=== PATIENT | female | born 1940 | race Caucasian/White ===

== ENCOUNTER 2018-05-07 11:24 | Emergency (ER) | payer MEDICARE, SELFPAY ==
[2018-05-07 11:34] VITALS: BP 222/70; PULSE 58; RESP 20; TEMP 37.1; O2SAT 100; BMI 24.7
[2018-05-07 12:00] VITALS: BP 214/67
--- NOTE | 2018-05-07 12:07 | ED_ITS ---
HPI - Back Pain/Injury <Darlene Mcghee PA-C - Last Filed: 05/07/18 15:07> General Chief Complaint: Back Pain/Injury Stated Complaint: 'KIDNEY INFECTION' Time Seen by Provider: 05/07/18 11:33 Source: patient Mode of arrival: ambulatory Limitations: no limitations History of Present Illness HPI Narrative: This 77-year-old female complains of possible kidney infection. She states that she had 1 2 years ago that did not show up on her original urinalysis but apparently showed up on CT scan. She states it felt very similar. She states that she ?wrenched? her back yesterday just reaching out for some and had some mild pain but nothing like this. She states that she awoke this morning with excruciating pain on her right side which she indicates is in the flank area. She states at times earlier it would radiate into the lower back and slightly down her legs. Now feels like it radiates across the back from the right at times. Does not radiate into the abdomen. She denies any exacerbating or alleviating features at all such as movement. She does not have any new weakness or paresthesia in the extremities. She states that she has a history of back problems and degenerative disease which has required epidural injections, but pain was not like this. She states that she has not had any urinary symptoms such as frequency, urgency, dysuria, or hematuria. She has not had any fever, chills, or sweats. She denies any abdominal pain. States that she had some nausea earlier and thought she might vomit but did not. She has denies nausea now but admits to not eating earlier secondary to this. She denies any new rashes. She denies any recent travel or known exposures. Blood pressure was noted to be high today and she states that she is supposed to be on blood pressure medication but not taking. Her home blood pressures are typically substantially lower, as low as 140 range systolic. She later reveals that she had a twisting fall onto her L. knee and rolled on the R. side of her back 2 days ago while trying to control her dog. She didn't think her back was hurt at the time, denies any other injury. She also remembers that 10 days ago she had a contusion on the left foot where it was bruised and swollen, and states that caused her to walk with an abnormal gait until better. She does think all of that did have stressed her back. Related Data Previous Rx's Medication Instructions Recorded cyclobenzaprine 10 mg PO Q8H PRN #10 tab 05/07/18 hydrocodone-acetaminophen [[place]] 1 tab PO Q4-6H PRN #7 tab 05/07/18 sulfamethoxazole-trimethoprim 1 tab PO Q12H #20 tab 05/07/18 [Bactrim DS] Allergies Allergy/AdvReac Type Severity Reaction Status Date / Time No Known Drug Allergies Allergy Verified 05/07/18 11:39 Review of Systems <Darlene Mcghee PA-C - Last Filed: 05/07/18 15:07> Review of Systems All systems reviewed & are unremarkable except as noted in HPI and below Exam <Darlene Mcghee PA-C - Last Filed: 05/07/18 15:07> Narrative Exam Narrative: GENERAL APPEARANCE: Patient appears uncomfortable, in NAD HEENT: PERRL, EOMI, no scleral icterus, normal oropharynx NECK: Supple LUNGS: Clear to auscultation bilaterally. HEART: Rate and rhythm regular, normal S1 and S2, no S3 or S4. ABDOMEN: Soft, mild generalized lower and midline tenderness without guarding or rebound. Not reproducible. +right CVAT. Abdomen is nondistended, bowel sounds present x 4 quadrants, no masses palpable, no hepatosplenomegaly. EXTREMITIES: No edema, no cyanosis MS: No point tenderness over the lumbosacral spine. She is tender over the right CVA and lumbar musculature. None on the left. Somewhat tender with move from supine to sit. Lower extremity strength 5/5 bilateral hip flexors, knee extensors, foot plantar flexion DERMATOLOGIC: No jaundice or exanthem. There are some small scabbed abrasions on the left knee NEUROLOGIC: Alert and oriented with normal speech and coordination, bilateral Achilles and patellar DTRs 2+ Initial Vital Signs Initial Vital Signs: Vital Signs Temperature 98.7 F 05/07/18 11:34 Pulse Rate 58 L 05/07/18 11:34 Respiratory Rate 20 05/07/18 11:34 Blood Pressure 222/70 H 05/07/18 11:34 Pulse Oximetry 100 05/07/18 11:34 <Huan Mcclendon DO - Last Filed: 05/07/18 15:25> Initial Vital Signs Initial Vital Signs: Vital Signs Temperature 98.7 F 05/07/18 11:34 Pulse Rate 58 L 05/07/18 11:34 Respiratory Rate 20 05/07/18 11:34 Blood Pressure 222/70 H 05/07/18 11:34 Pulse Oximetry 100 05/07/18 11:34 Course <Darlene Mcghee PA-C - Last Filed: 05/07/18 15:07> Hospital Course: Patient reported improvement in pain with medications. Discussed treatment of possible pyelo but also musculoskeletal component of her pain and she is agreeable as well as with close f/u and plan to return if any worsening symptoms Orders Ordered: ED Orders 05/07/18 12:12 Basic Metabolic Panel Stat Complete Blood Count AUTO DIFF Stat Lipase Stat 05/07/18 12:39 CT kidney ureter bladder (KUB) Stat Urinalysis and Microscopic Stat Urine Culture Stat Discontinued Medications Acetaminophen (Tylenol) 650 mg PO NOW ONE Stop: 05/07/18 12:14 Last Admin: 05/07/18 12:58 Dose: 650 mg Cyclobenzaprine HCl (Flexeril) 10 mg PO NOW ONE Stop: 05/07/18 13:33 Last Admin: 05/07/18 13:41 Dose: 10 mg Sodium Chloride (Normal Saline 0.9%) 1,000 mls @ 1,000 mls/hr IV BOLUS ONE Stop: 05/07/18 13:30 Last Infusion: 05/07/18 14:35 Dose: 1,000 mls/hr Admin: 05/07/18 13:01 Dose: 1,000 mls/hr Ibuprofen (Advil) 400 mg PO NOW ONE Stop: 05/07/18 12:14 Last Admin: 05/07/18 12:59 Dose: 400 mg Morphine Sulfate (Morphine Sulfate) 2 mg IV NOW ONE Stop: 05/07/18 12:21 Last Admin: 05/07/18 13:02 Dose: 2 mg Vital Signs - 8 hr 05/07/18 11:34 05/07/18 12:00 05/07/18 13:03 Temperature 98.7 F Pulse Rate 58 L 99 H Respiratory Rate 20 Blood Pressure 222/70 H Blood Pressure [Right Arm] 214/67 H 199/52 H Pulse Oximetry 100 92 05/07/18 14:01 05/07/18 14:40 Temperature Pulse Rate 72 67 Respiratory Rate 18 Blood Pressure 167/74 H Blood Pressure [Right Arm] 189/60 H Pulse Oximetry 99 <Huan Mcclendon DO - Last Filed: 05/07/18 15:25> Orders Ordered: ED Orders 05/07/18 12:12 Basic Metabolic Panel Stat Complete Blood Count AUTO DIFF Stat Lipase Stat 05/07/18 12:39 CT kidney ureter bladder (KUB) Stat Urinalysis and Microscopic Stat Urine Culture Stat Discontinued Medications Acetaminophen (Tylenol) 650 mg PO NOW ONE Stop: 05/07/18 12:14 Last Admin: 05/07/18 12:58 Dose: 650 mg Cyclobenzaprine HCl (Flexeril) 10 mg PO NOW ONE Stop: 05/07/18 13:33 Last Admin: 05/07/18 13:41 Dose: 10 mg Sodium Chloride (Normal Saline 0.9%) 1,000 mls @ 1,000 mls/hr IV BOLUS ONE Stop: 05/07/18 13:30 Last Infusion: 05/07/18 14:35 Dose: 1,000 mls/hr Admin: 05/07/18 13:01 Dose: 1,000 mls/hr Ibuprofen (Advil) 400 mg PO NOW ONE Stop: 05/07/18 12:14 Last Admin: 05/07/18 12:59 Dose: 400 mg Morphine Sulfate (Morphine Sulfate) 2 mg IV NOW ONE Stop: 05/07/18 12:21 Last Admin: 05/07/18 13:02 Dose: 2 mg Vital Signs - 8 hr 05/07/18 11:34 05/07/18 12:00 05/07/18 13:03 Temperature 98.7 F Pulse Rate 58 L 99 H Respiratory Rate 20 Blood Pressure 222/70 H Blood Pressure [Right Arm] 214/67 H 199/52 H Pulse Oximetry 100 92 05/07/18 14:01 05/07/18 14:40 Temperature Pulse Rate 72 67 Respiratory Rate 18 Blood Pressure 167/74 H Blood Pressure [Right Arm] 189/60 H Pulse Oximetry 99 MDM - Back Pain/Injury <Darlene Mcghee PA-C - Last Filed: 05/07/18 15:07> Lab Data POC UA trace protein Result diagrams: 05/07/18 12:12 05/07/18 12:12 Lab Results 05/07/18 05/07/18 05/07/18 Range/Units 12:12 12:12 12:39 WBC 6.3 (4.5-11.0) X10^3/uL RBC 4.16 (4.0-5.2) X10^6/uL Hgb 13.9 (12.0-16.0) g/dL Hct 41.2 (36-46) % MCV 98.9 (80-100) fL MCH 33.4 (26-34) PG MCHC 33.7 (30-36) % RDW 13.4 (11.6-14.8) % Plt Count 185 (150-400) X10^3/uL Neut % (Auto) 47.4 L (50-75) % Lymph % (Auto) 40.9 H (25-40) % [place] % (Auto) 9.3 (3-14) % Eos % (Auto) 1.4 L (2-4) % Baso % (Auto) 1.0 (0-2) % Neut # (Auto) 3000 (3047-0734) /uL Sodium 143 (137-145) mmol/L Potassium 3.8 (3.4-5.1) mmol/L Chloride 104 (98-107) mmol/L Carbon Dioxide 27 (22-32) mmol/L BUN 18 H (7-17) mg/dL Creatinine 0.70 (0.52-1.04) mg/dL Estimated GFR > 60.0 (>60) mL/min BUN/Creatinine Ratio 25.7 H (6-22) Glucose 113 H (80-110) mg/dL Calcium 9.4 (8.4-10.2) mg/dL Lipase 122 (23-300) U/L Urine Color Yellow Urine Appearance Sl cloudy Urine pH 8.0 (4.5-8.0) Ur Specific [place] 1.015 (1.000-1.035) Urine Protein Negative (Negative) Urine Glucose (UA) Negative (Normal) g/dL Urine Ketones Negative (NEGATIVE) Urine Occult Blood Negative (Negative) Urine Nitrate Negative (Negative) Urine Bilirubin Negative (NEGATIVE) Urine Urobilinogen 0.2 (0.2) E.U./dL Ur Leukocyte Esterase Negative (NEGATIVE) Urine RBC 1-5/hpf (0-5/HPF) Urine WBC 5-10/hpf H (0-5/HPF) Ur Squamous Epith Cells 0-1 /hpf Amorphous Sediment 2+ Urine Bacteria Many (>30) H (None) Ur Culture Indicated? Specimen cultured Micro UA Comment Not Reportable Imaging Data CT scan - abdomen: Radiologist's impression: View Report History [address] [address] [address] Scan Report Signed Patient: Juli Munoz MR#: [id number] : 1940 Acct:[id number] Age/Sex: 77 / F Date of Service: 05/07/18 Loc: ED Accession Number: [id number] Procedure: CT kidney ureter bladder (KUB) Ordering Provider: Darlene Mcghee P.A-C PROCEDURE: CT KIDNEY URETER BLADDER (KUB) INDICATIONS: left. flank pain TECHNIQUE: Noncontrast 5 mm thick sections acquired from the diaphragms to the symphysis. 5 mm thick coronal and sagittal reformats were then performed. For radiation dose reduction, the following was used: automated exposure control, adjustment of mA and/or kV according to patient size. COMPARISON: None. FINDINGS: Image quality: Excellent. Lung bases: Lung bases are clear. Heart size is normal. Urinary system: Both kidneys are normal in size. No kidney stones. No hydronephrosis or perinephric fat stranding. Both ureters appear non-dilated throughout their expected courses. Bladder wall thickness is normal; no calcified bladder stones. Other solid organs: Liver is normal in size. Gallbladder appears normal. Pancreas is normal in contours. Spleen is normal in size. No adrenal nodules. Peritoneum and bowel: Unenhanced bowel loops demonstrate normal wall thickness and caliber. No free fluid or air. Nodes and vessels: No retroperitoneal or mesenteric adenopathy by size criteria. Aorta and inferior vena cava are normal in caliber. Abdominal wall: No ventral hernias. Pelvis: No free pelvic fluid. No inguinal hernias or adenopathy. Bones: No suspicious bony lesions. No vertebral body compression fractures. IMPRESSION: No hydronephrosis or nephrolithiasis, several small renal and hepatic cysts are present but no solid mass lesion is seen and there is no sign of inflammatory process such as diverticulitis. A definite source of the left flank pain is not found. Dictated by: German Jackson M.D. on 05/07/2018 at 12:47 Approved by: German Jackson M.D. on 05/07/2018 at 12:49 <Huan Mcclendon, DO - Last Filed: 05/07/18 15:25> Lab Data Lab Results 05/07/18 05/07/18 05/07/18 Range/Units 12:12 12:12 12:39 WBC 6.3 (4.5-11.0) X10^3/uL RBC 4.16 (4.0-5.2) X10^6/uL Hgb 13.9 (12.0-16.0) g/dL Hct 41.2 (36-46) % MCV 98.9 (80-100) fL MCH 33.4 (26-34) PG MCHC 33.7 (30-36) % RDW 13.4 (11.6-14.8) % Plt Count 185 (150-400) X10^3/uL Neut % (Auto) 47.4 L (50-75) % Lymph % (Auto) 40.9 H (25-40) % [place] % (Auto) 9.3 (3-14) % Eos % (Auto) 1.4 L (2-4) % Baso % (Auto) 1.0 (0-2) % Neut # (Auto) 3000 (1623-7068) /uL Sodium 143 (137-145) mmol/L Potassium 3.8 (3.4-5.1) mmol/L Chloride 104 (98-107) mmol/L Carbon Dioxide 27 (22-32) mmol/L BUN 18 H (7-17) mg/dL Creatinine 0.70 (0.52-1.04) mg/dL Estimated GFR > 60.0 (>60) mL/min BUN/Creatinine Ratio 25.7 H (6-22) Glucose 113 H (80-110) mg/dL Calcium 9.4 (8.4-10.2) mg/dL Lipase 122 (23-300) U/L Urine Color Yellow Urine Appearance Sl cloudy Urine pH 8.0 (4.5-8.0) Ur Specific [place] 1.015 (1.000-1.035) Urine Protein Negative (Negative) Urine Glucose (UA) Negative (Normal) g/dL Urine Ketones Negative (NEGATIVE) Urine Occult Blood Negative (Negative) Urine Nitrate Negative (Negative) Urine Bilirubin Negative (NEGATIVE) Urine Urobilinogen 0.2 (0.2) E.U./dL Ur Leukocyte Esterase Negative (NEGATIVE) Urine RBC 1-5/hpf (0-5/HPF) Urine WBC 5-10/hpf H (0-5/HPF) Ur Squamous Epith Cells 0-1 /hpf Amorphous Sediment 2+ Urine Bacteria Many (>30) H (None) Ur Culture Indicated? Specimen cultured Micro UA Comment Not Reportable Discharge Plan Departure Patient Disposition: Home, Self-Care Clinical Impression: Acute pyelonephritis, Acute lumbar myofascial strain Discharge Date/Time: 05/07/18 14:42 Interventions: ED Discharge Assessment Last Done: 05/07/18 14:40 Instructions: DI for Kidney Infection, DI for Low Back Pain Activity Restrictions/Additional Instructions: You should call Dr. Anderson' office today to schedule a follow up appointment for this week to assess your progress and review urine cultures. 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 Continue Ibuprofen as needed for pain and I have given you a few prescription pain pills as well ( [place]), along with the muscle relaxant cyclobenzaprine that you had here. Do not take [place] or cyclobenzaprine and drive as they may make you sleepy. You should return if you have any acutely worsening symptoms such as fever, vomiting , worsening pain while awaiting follow-up. You may have a kidney infection, but I do think you have some musculoskeletal pain as well given the recent repeated minor traumas so it is reasonable to treat for each of these while awaiting your urine culture result Prescriptions: New cyclobenzaprine 10 mg tablet 10 mg PO Q8H PRN (Reason: muscle spasm) Qty: 10 RF: 0 hydrocodone-acetaminophen [[place]] 5-325 mg tablet 1 tab PO Q4-6H PRN (Reason: flank pain) Qty: 7 RF: 0 sulfamethoxazole-trimethoprim [Bactrim DS] 800-160 mg tablet 1 tab PO Q12H Qty: 20 RF: 0 Discontinued celecoxib [Celebrex] 200 mg Capsule 200 mg PO PRN PRN (Reason: Breakthrough Pain) Qty: 0 RF: 0 Referrals: Efrain Anderson MD [Primary Care Provider] - <Huan Mcclendon DO - Last Filed: 05/07/18 15:25> Cosign ED Attending Cosinnaature Attestation: I was immediately available in the department for consultation. Documentation has been reviewed. I agree with assessment and plan.
[2018-05-07 12:24] LABS: Add Manual Diff / Slide Review NO; Eosinophils Percent Auto 1.4 % (2-4); Hematocrit 41.2 % (36-46); Hemoglobin 13.9 g/dL (12.0-16.0); Lymphocytes Percent Auto 40.9 % (25-40); Mean Corpuscular HGB Conc 33.7 % (30-36); Mean Corpuscular Hemoglobin 33.4 PG (26-34); Mean Corpuscular Volume 98.9 fL (80-100); Monocytes Percent Auto 9.3 % (3-14); Neutrophils Absolute Auto 3000 /uL (3000-5900); Neutrophils Percent Auto 47.4 % (50-75); Platelet Count 185 X10^3/uL (150-400); Red Blood Cell Count 4.16 X10^6/uL (4.0-5.2); Red Cell Distribution Width 13.4 % (11.6-14.8); White Blood Cell Count 6.3 X10^3/uL (4.5-11.0)
[2018-05-07 12:30] LABS: BUN Creatinine Ratio 25.7 (6-22); Blood Urea Nitrogen 18 mg/dL (7-17); Calcium 9.4 mg/dL (8.4-10.2); Carbon Dioxide 27 mmol/L (22-32); Chloride 104 mmol/L (98-107); Estimated Glomerular Filt Rate > 60.0 mL/min (>60); Glucose 113 mg/dL (80-110); Lipase 122 U/L (23-300); Potassium 3.8 mmol/L (3.4-5.1); Sodium 143 mmol/L (137-145)
[2018-05-07 12:31] LABS: HEMOLYSIS 60 (0-50)
--- NOTE | 2018-05-07 12:39 | DI.CT.S_ITS ---
PROCEDURE: CT KIDNEY URETER BLADDER (KUB) INDICATIONS: left. flank pain TECHNIQUE: Noncontrast 5 mm thick sections acquired from the diaphragms to the symphysis. 5 mm thick coronal and sagittal reformats were then performed. For radiation dose reduction, the following was used: automated exposure control, adjustment of mA and/or kV according to patient size. COMPARISON: None. FINDINGS: Image quality: Excellent. Lung bases: Lung bases are clear. Heart size is normal. Urinary system: Both kidneys are normal in size. No kidney stones. No hydronephrosis or perinephric fat stranding. Both ureters appear non-dilated throughout their expected courses. Bladder wall thickness is normal; no calcified bladder stones. Other solid organs: Liver is normal in size. Gallbladder appears normal. Pancreas is normal in contours. Spleen is normal in size. No adrenal nodules. Peritoneum and bowel: Unenhanced bowel loops demonstrate normal wall thickness and caliber. No free fluid or air. Nodes and vessels: No retroperitoneal or mesenteric adenopathy by size criteria. Aorta and inferior vena cava are normal in caliber. Abdominal wall: No ventral hernias. Pelvis: No free pelvic fluid. No inguinal hernias or adenopathy. Bones: No suspicious bony lesions. No vertebral body compression fractures. IMPRESSION: No hydronephrosis or nephrolithiasis, several small renal and hepatic cysts are present but no solid mass lesion is seen and there is no sign of inflammatory process such as diverticulitis. A definite source of the left flank pain is not found. Dictated by: German Jackson M.D. on 05/07/2018 at 12:47 Approved by: German Jackson M.D. on 05/07/2018 at 12:49
[2018-05-07] MEDS: ACETAMINOPHEN 325 MG TABLET 650 MG PO (12:58)
[2018-05-07] MEDS: IBUPROFEN 400 MG TABLET PO (12:59)
[2018-05-07] MEDS: SODIUM CHLORIDE 0.9% 1,000 ML 1000 ML IV (13:01)
[2018-05-07] MEDS: MORPHINE 5 MG/ML INJ 2 MG IV (13:02)
[2018-05-07 13:03] VITALS: BP 199/52; PULSE 99; O2SAT 92
[2018-05-07 13:03] LABS: Appearance Urine UA SL CLOUDY; Bilirubin Urine UA NEGATIVE (NEGATIVE); Color Urine UA YELLOW; Glucose Urine UA NEGATIVE (Normal); Ketones Urine UA NEGATIVE (NEGATIVE); Leukocyte Esterase Urine UA NEGATIVE (NEGATIVE); Nitrite Urine UA Negative (Negative); Occult Blood Urine UA NEGATIVE (Negative); Protein Urine UA NEGATIVE (Negative); Specific Gravity Urine UA 1.015 (1.000-1.035); Urobilinogen Urine UA 0.2 E.U./dL (0.2)
[2018-05-07 13:04] LABS: Amorphous Sediment Urine 2+; Bacteria Urine Many (>30); Culture Indicated Urine Specimen Cultured; RBC Urine 1-5/HPF (0-5/HPF); Squamous Epithelial Cell Urine 0-1 /HPF; WBC Urine 5-10/HPF (0-5/HPF)
--- NOTE | 2018-05-07 13:18 | PC.NURSE ---
[address] scan
[2018-05-07] MEDS: CYCLOBENZAPRINE 10 MG TABLET PO (13:41)
[2018-05-07 14:01] VITALS: BP 189/60; PULSE 72
[2018-05-07 14:40] VITALS: BP 167/74; PULSE 67; RESP 18; O2SAT 99
== END 2018-05-07 14:42 | disposition home or self-care (01) ==
PROVIDERS: Emergency Provider Internal Medicine; Family Provider Family Medicine; PCP Family Medicine
DX: N12 Tubulo-interstitial nephritis, not specified as acute or chronic (principal); S39.012A Strain of muscle, fascia and tendon of lower back, initial encounter
CPT/HCPCS: 74176; 80048; 81001; 81003; 83690; 85025; 87086; 96361; 96374; 99283; 99284; J2270

== ENCOUNTER → 2018-06-14 19:25 | Outpatient (CLI) | payer MEDICARE, SELFPAY ==
--- NOTE | 2018-06-14 | DI.MRI.S_ITS ---
PROCEDURE: MR LUMBAR SPINE WO CON INDICATIONS: Lumbar radiculopathy TECHNIQUE: Noncontrast sagittal T1 spin echo and T2 fast echo, sagittal STIR, axial T1 and T2 fast spin echo through the lumbar spine. In cases with scoliosis, additional coronal T2 fast spin echo may be performed. COMPARISON: [facility], CT, CT KIDNEY URETER BLADDER (KUB), 05/07/2018, 12:32. FINDINGS: Image quality: Excellent. Alignment and Curvature: There is trace retrolisthesis of L1 on L2, L2 on L3, trace anterolisthesis of L4 on L5. Bone Marrow: Marrow is of normal overall signal. Moderate reactive endplate changes are present at L2-3, minimal to mild throughout the remainder of the lumbar spine. No acute vertebral body compression fractures. Spinal Cord: Conus medullaris terminates at the L1 level. Visualized cord demonstrates normal signal and size. Paraspinous Soft Tissues: No paravertebral masses. Partially visualized hyperintensities are present within the kidneys and liver. These appear to be unchanged from CT abdomen and pelvis of 05/07/18 and most suggestive of cysts. Discs: Moderate to severe desiccation is present throughout the lumbar spine most severe at L2-3, L3-4 and L4-5. L1-L2: Mild disc bulge with moderate to severe spinal stenosis. There is compromise the lateral recesses bilaterally secondary to asymmetric bulge. Superimposed right posterior her central protrusion is also present. There is severe bilateral foraminal narrowing with facet and ligamentum flavum arthropathy. L2-L3: Mild disc bulge with a left lateral/foraminal component. There is moderate to severe spinal stenosis with severe right and moderate to severe left foraminal narrowing. Mild flattening is noted on the right. Facet and ligamentum flavum hypertrophy are present. L3-L4: Mild disc bulge including a right lateral component. Mild/moderate spinal stenosis is present. There is severe right and moderate to severe left foraminal narrowing with flattening on the right. Facet and ligamentum flavum hypertrophy are present. L4-L5: Mild disc bulge with left foraminal component. There is moderate to severe spinal stenosis. There is compromise of the left lateral recess. Severe left and moderate right foraminal narrowing is present with flattening of the left. Facet hypertrophy is present. L5-S1: Mild disc bulge including mild compromise a lateral recesses bilaterally secondary to broad-based bulge. There is severe left and moderate right foraminal narrowing with facet hypertrophy. IMPRESSION: 1. Multilevel spinal stenosis is present most severe at L1-L2, L2-3, L4-5 secondary to disc bulges with contributing effects of facet/ligamentum flavum arthropathy. 2. Multilevel disc bulges. 3. Multilevel severe foraminal narrowing with nerve root flattening as above secondary to facet arthropathy. Dictated by: Ann Mcbride M.D. on 06/15/2018 at 12:36 Approved by: Ann Mcbride M.D. on 06/15/2018 at 12:46
== END ==
PROVIDERS: Family Provider Family Medicine; PCP Family Medicine; Visit Provider Family Medicine
DX: M48.061 Spinal stenosis, lumbar region without neurogenic claudication (principal); M47.26 Other spondylosis with radiculopathy, lumbar region
CPT/HCPCS: 72148

== ENCOUNTER → 2019-02-12 10:46 | Outpatient (CLI) | payer MEDICARE, SELFPAY ==
--- NOTE | 2019-02-12 | DI.MG.S_ITS ---
BILATERAL DIGITAL SCREENING MAMMOGRAM 3D/2D WITH CAD: 02/12/2019 CLINICAL: Routine screening. Family history of breast cancer. Comparison is made to exams dated: 02/06/2017 mammogram, 07/03/2015 mammogram, and 02/07/2014 mammogram - [facility]. There are scattered fibroglandular elements in both breasts. Current study was also evaluated with a Computer Aided Detection (CAD) system. No significant masses, calcifications, or other findings are seen in either breast. There has been no significant interval change. IMPRESSION: NEGATIVE There is no mammographic evidence of malignancy. A 1 year screening mammogram is recommended. This exam was interpreted at Station ID: [id number]. NOTE: For mammograms, a report in lay terms will be sent to the patient. Approximately 15% of breast malignancies will not be visualized mammographically. In the management of a palpable breast mass, a negative mammogram must not discourage biopsy of a clinically suspicious lesion. Electronically Signed By: Tom bright/srinivasa:02/14/2019 12:27:30 letter sent: Normal Exam ACR BI-RADS Category 1: Negative [id number]
== END ==
PROVIDERS: PCP Family Medicine; Visit Provider Family Medicine
DX: Z12.31 Encounter for screening mammogram for malignant neoplasm of breast (principal); Z80.3 Family history of malignant neoplasm of breast
CPT/HCPCS: 77063; 77067

== ENCOUNTER 2020-05-14 09:02 | Emergency (ER) | payer MEDICARE, SELFPAY ==
[2020-05-14 09:09] VITALS: BP 171/85; PULSE 83; RESP 20; TEMP 37.1; O2SAT 99; BMI 30.1
--- NOTE | 2020-05-14 09:56 | DI.RAD.S_ITS ---
PROCEDURE: XR LUMBAR SPINE 2-3V INDICATIONS: recurrent severe low back pain, no recent fall/ injury TECHNIQUE: 3 views of the lumbar spine were acquired. COMPARISON: None. FINDINGS: Bones: 5 [id number] vertebrae are present. There is approximately 19? of convex left scoliosis. There is mild L1-L2 and L2-L3 retrolisthesis. There is trace L4-L5 anterolisthesis. No vertebral body compression fractures. No suspicious bony lesions. Severe L2-L3 and L3-L4 degenerative disc disease. Moderate L1-L2 degenerative disc disease. Mild L4-L5 and L5-S1 degenerative disease. Moderate L2-L3 and L3-L4 L4-L5 and L5-S1 facet arthropathy. Mild L1-L2 facet arthropathy. Soft tissues: Overlying bowel gas pattern is normal. No suspicious soft tissue calcifications. IMPRESSION: 1. Multilevel degenerative disc disease. 2. Multilevel facet arthropathy. 3. No fracture. No acute osseous lesion. If symptoms and/or clinical suspicion for pathology persists, evaluation with MRI may be helpful for further assessment. Dictated by: Jodee Lam MD, PhD on 05/14/2020 at 10:27 Approved by: Jodee Lam MD, PhD on 05/14/2020 at 10:29
[2020-05-14] MEDS: MORPHINE 4 MG/ML INJ IM (10:15)
[2020-05-14] MEDS: CYCLOBENZAPRINE 10 MG TABLET PO (10:15)
[2020-05-14 11:48] LABS: Bacteria Urine Occasional (0-1); Culture Indicated Urine Cult Not Indicated; Hyaline Casts Urine 0-1/LPF; Mucus Urine 1+ (Negative); RBC Urine 0-1/HPF (0-5/HPF); Squamous Epithelial Cell Urine 0-1 /HPF (0-5/HPF); WBC Urine 0-1/HPF (0-5/HPF)
--- NOTE | 2020-05-14 12:05 | PT.IIE ---
Surgical History (Last Updated 05/07/18 @ 12:33 by Darlene Mcghee PA-C) S/P epidural steroid injection (Resolved) Medical History (Last Updated 05/07/18 @ 12:33 by Darlene Mcghee PA-C) Degenerative disc disease (Chronic) HTN (hypertension) (Chronic) Kidney infection (Resolved) Physical Therapy Inpatient Evaluation/Re-Eval M1 PT/OT-IP Prior Functional Status Start: 05/14/20 10:22 Freq: Status: Active Protocol: Document 05/14/20 11:34 AW (Rec: 05/14/20 12:05 AW [id number]) Medical Review Prior Functional Status Medical History Reviewed Yes Communication WNL. Pt is an effective verbal communicator. Mobility and Gait Pt is independent and active at baseline. She takes regular morning walks with her dog and with friends. She does have remote history of L4-5 inflammation. She indicates GRAHAM was an effective treatment for that issue ~20 years ago. Activities of Daily Living and IADL's Independent, including driving , medications, finances. Prior Functional Level (Other details) Pt states she fell in bushes a few weeks ago which correlated with onset of left sided low back and radiating LLE pain. She now has worse right-sided low back and RLE pain which is worst during transitions. It has been difficult for her to find positions of comfort over the past few days. Social History Household Members none Living Arrangements House Number of Floors (Floors) Two Floors Number of Stairs To Enter/Railing? Level entrance. 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 Home Environment High Toilet,Walk in Shower Employment Status Retired Additional Social History Comment Pt has lived alone since her seven years ago. 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 She has two daughters and a son who live in [facility]. One daughter has volunteered to come stay with the pt for a while if needed, but the pt appears hesitant to ask for help. M2 PT-IP Current Condition Start: 05/14/20 10:22 Freq: Status: Active Protocol: Document 05/14/20 11:34 AW (Rec: 05/14/20 12:05 AW [id number]) Physical Therapy Current Condition Current Condition Evaluation Date 05/14/20 Treatment Diagnosis acute LBP, difficulty in walking Onset Date 05/13/20 M3 PT-IP Subjective Start: 05/14/20 10:22 Freq: Status: Active Protocol: Document 05/14/20 11:34 AW (Rec: 05/14/20 12:05 AW [id number]) Subjective Physical Therapy Visit Type Type Initial Evaluation Visit Start Time 11:02 Visit Stop Time 11:31 Total Visit Minutes 29 Physical Therapy Visit Comments Patient Comments Pt is feeling somewhat better since receving a muscle relaxer. She is willing to participate with PT. Patient Goals Pt wishes to return home with decreased pain. Therapy Pain Assessment Pain When Pain Assessed During Mobility Pain Present Pain Present Pain Reported Location Back Intensity 9 Scale Used Numeric (0 - 10) Description Radiating,Sharp,Shooting, Stabbing Pain Behaviors Facial Grimacing,Guarding, Wincing Pain Management Techniques Distraction,Re-positioning M4 PT-IP Mobility and Gait Start: 05/14/20 10:22 Freq: Status: Active Protocol: Document 05/14/20 11:34 AW (Rec: 05/14/20 12:05 AW [id number]) PT-Bed Mobility Assessment Rolling Type of Rolling Log Rolling,Roll to Left Level of Assist Contact Guard Assistance Supine to Sit Supine to Sit Standby Assistance Scooting Scooting to Edge of Bed Standby Assistance PT-Transfer Assessment Sit to and From Stand Sit to and from Stand Standby Assistance Equipment Transfer Assistive Device 4 Wheeled Walker Transfers Transfer Destination Bed,Toilet Transfer Technique pt ambulated with 4WW Transfer Ability Level of Assist Standby Assistance Comments Mobility Comments Pt was reclined on the rsaint paul when PT arrived. She required verbal and tactile cues to complete log roll to her left side, SBA for sidelying to sit . She completed sit to stand using 4WW SBA and ambulated 50 feet to the bathroom with 4WW SBA. She transferred to and from the toilet to provide a urine sample using the right- sided grab bar SBA; she also required verbal cues to maintain contact with the 4WW until ready to sit and to set the brakes. Upon leaving the bathroom, pt ambulated around the nurses station with 4WW SBA. She experienced sharp shooting pain ~ every 15 feet with buckling of the right leg but she was able to recover independently. Pt returned to the room and sat EOB with great hesitation due to increasing pain. Gait Assessment Gait Gait Assistance Required: Standby Assistance Distance (Feet) 200 Assistive Devices Assistive Device 4 Wheeled Walker Gait Deviations General Gait Pattern Antalgic,Decreased Stride Length,Decreased Feet Clearance,Flexed Trunk,Wide Based Gait Factors Limiting Gait Function Factors Limiting Gait Function Decreased Sensation,Decreased Strength,Limited Range of Motion,Pain,Poor Balance,Poor Safety Awareness Comments Gait Comments See mobility comments. Gait was characterized by excessive external rotation of the hips and excessive pronation. Pt posited that she was unconsciously attempting to increase her base of support with wide stance and turned out hips. Pt did require verbal cues to keep the walker closer to her body for optimal support. Stair Climbing Assessment Comments Stair Climbing Comments Not assessed. Pt need not access stairs at home. PT-Balance Assessment Sitting Balance and Reactions Static Sitting Balance Ability Good Dynamic Sitting Balance Ability Good Standing Balance and Reactions Static Standing Balance Ability Fair Dynamic Standing Balance Ability Fair Device Used 4WW M5 PT-IP Objective Assessments Start: 05/14/20 10:22 Freq: Status: Active Protocol: Document 05/14/20 11:34 AW (Rec: 05/14/20 12:05 AW [id number]) Orientation Orientation/Cognition Level of Alertness Alert Orientation Name,Day of Week,Place, Situation Language Function Ability No Deficits Noted Safety Awareness Decreased Safety Awareness Memory Description No Deficits Noted Gross Range of Motion Lower Extremity ROM Assessment Bilaterally Impaired Impairments limited hip AROM due to pain Strength Lower Extremity Strength Assessment Bilaterally Impaired Hip 4/5 Knee 4+/5 Ankle 5/5 Coordination Assessment Gross Coordination Gross Coordination WNL Sensation Assessment Sensation Gross Sensation Right LE Impaired,Left LE Impaired Sensation Description Burning,Pain Muscle Tone Muscle Tone WNL Yes M6 PT-IP Treatment Start: 05/14/20 10:22 Freq: Status: Active Protocol: Document 05/14/20 11:34 AW (Rec: 05/14/20 12:05 AW [id number]) Physical Therapy Treatment Other Treatments Other Treatment Performed Provided education on role of PT with regard to acute back pain and encouraged her to call for outpatient evalatuation as soon as possible. M7 PT-IP Assessment and Plan Start: 05/14/20 10:22 Freq: Status: Active Protocol: Document 05/14/20 11:34 AW (Rec: 05/14/20 12:05 AW [id number]) PT Summary Assessment and Plan Potential Rehabilitation Potential Good Status of Condition at Evaluation Evolving Summary Impairments Pain,ROM,Strength,Balance,Bed Mobility,Transfers,Gait, Activity Tolerance Assessment Summary Juli is an 79 yo woman seen for PT evaluation in the ED due to acute onset low back pain. At baseline, pt is indpendent in all regards. She has history of fluctuating low back pain over at least two decades but had been relatively pain-free until 2 weeks ago. At that time, she fell into a row of bushes and began to have low back pain with left-sided radiating pain . At time of evaluation, right -sided low back and LE pain was more bothersome than left side. L/S x-ray report from this visit finds Multilevel degenerative disc disease. Multilevel facet arthropathy. No fracture. No acute osseous lesion. She has borrowed a friend's 4WW which she used to ambulate into the ED, to the bathroom, and around the nurses station with SBA. She does experience buckling of her right leg ~ every 15 feet. This PT discussed with the pt the need to continue using an assistive device for now. She will be able to keep the 4WW as long as needed. Also discussed the role of outpatient PT for acute low back pain and encouraged her to follow up and schedule an evaluation. Pt states she has friends who would be able to drive her to appointments. Pt is safe to discharge to her home environment with outpatient PT. Frequency of Treatment Frequency Of Treatment Discharge Recommendations To Nursing Amount of Assist Needed Standby Assistance Discharge Recommendations PT Discharge Recommendations Home with Assistance, Outpatient PT Transportation Needs at Discharge Private Vehicle
--- NOTE | 2020-05-14 12:31 | ED_ITS ---
HPI - Back Pain/Injury General Chief Complaint: Back Pain/Injury Stated Complaint: Hurt her lower back. Time Seen by Provider: 05/14/20 09:42 Source: patient Limitations: no limitations History of Present Illness HPI Narrative: CC: Right lower back pain HPI: The patient is an 79-year-old female with chronic low back pain. The patient states that she has multiple herniated discs in L4-L5. She states that she used to see a pain specialist and received multiple epidural shots for pain control. She is now complaining that she has most of her pain in her right back which radiates into her right leg. She states that it does not hurt to walk she is able to move her legs and there is no shooting pain at this time. She states that 2 weeks ago she had severe pain in her left lower back with sciatica of radiating into her left leg. She has had no significant numbness in either leg. The pain is new in her right leg. She states that intermittently the pain causes her to feel as though her legs are going to buckle and she is going to fall. She has had no fall or injury. Her pain is 8 to 10/10 in intensity. She walks with a walker. The patient denies being a diabetic previous history of a myocardial infarction or COPD. She admits to hypertension. She is a former cigarette smoker in periodically drinks alcohol but does not use marijuana. Related Data Previous Rx's Medication Instructions Recorded cyclobenzaprine 10 mg PO Q8H PRN #10 tab 05/07/18 hydrocodone-acetaminophen [Woodford] 1 tab PO Q4-6H PRN #7 tab 05/07/18 sulfamethoxazole-trimethoprim 1 tab PO Q12H #20 tab 05/07/18 [Bactrim DS] cyclobenzaprine 10 mg PO TID PRN #15 tab 05/14/20 oxycodone-acetaminophen [Percocet] 1 tab PO Q4-6H PRN #12 tab 05/14/20 Allergies Allergy/AdvReac Type Severity Reaction Status Date / Time No Known Drug Allergies Allergy Verified 05/07/18 11:39 Review of Systems Review of Systems Narrative: REVIEW OF SYSTEMS: CONSTITUTIONAL: She denies any fever chills or sweats. NEUROLOGICAL: She denies any headache numbness tingling paresthesias paresis or paralysis. EENT: She denies any nasal congestion sinus congestion or difficulty in swallowing. CARDIO-PULMONARY: She denies any chest pain cough shortness of breath palpit ations. GASTROINTESTINAL: She denies any abdominal pain nausea vomiting diarrhea change in bowel habits or incontinence of stool. GENITAL URINARY: She denies any urinary symptoms or incontinence. MUSCULOSKELETAL/ RHEUMATOLOGICAL: He complains of chronic back pain. Patient History Medical History Degenerative disc disease (Chronic) HTN (hypertension) (Chronic) Kidney infection (Resolved) Surgical History S/P epidural steroid injection (Resolved) Social History household members: none Smoking Status: Former smoker alcohol intake: current Smoking Status: Former smoker alcohol intake frequency: 0-2 drinks per day Alcohol type: wine Substance Use Type: does not use Exam Narrative Exam Narrative: PHYSICAL EXAM: CONSTITUTIONAL: Awake, Alert, Oriented. She is lying in the left lateral decubitus position with both hips and knees flexed. She does not appear to be in any acute distress and resting comfortably. HEAD: AT/NC EENT: PERRL, FROM of eyes, no discharge. NOSE:No epistaxis or nasal drainage MOUTH:Oral mucosa is moist and pink, NECK: Supple, no obvious JVD, Trachea is midline without stridor, no palpable LN. SPINE: Palpation of the cervical and thoracic spine does not reveal any tenderness or deformity. There is no significant costovertebral angle tenderness. The patient has tenderness to palpation of the right sciatic notch and right and left SI joints. The patient has a positive straight leg raise on the right side. There is no sensory deficits in the legs she has symmetrical strength in both legs deep tendon reflexes are 1+. THORAX: No deformity, retractions, chest wall tenderness. LUNGS: Decreased breath sounds bilaterally that are clear and symmetrical HEART: Normal heart tones, regular rhythm and rate without murmur. ABDOMEN: Soft, non-tender, without guarding, rebound, rigidity or palpable mass. EXTREMITIES: No edema, deformity, tenderness or cyanosis. SKIN: No rash, bruising, petechiae or purpura. NEURO: Awake, alert, oriented, conversive, cranial nerves II-XII are symmetrical , moves all 4 extremities and is ambulatory with walker. Initial Vital Signs Initial Vital Signs: Vital Signs Temperature 98.7 F 05/14/20 09:09 Pulse Rate 83 05/14/20 09:09 Respiratory Rate 20 05/14/20 09:09 Blood Pressure 171/85 H 05/14/20 09:09 Pulse Oximetry 99 05/14/20 09:09 Course Course Course Narrative: 1232: The patient's x-ray of the lumbar spine revealed 1. Multilevel degenerative disc disease. 2. Multilevel facet arthropathy. 3. No fracture. No acute osseous lesion. If symptoms and/or clinical suspicion for pathology persist evaluation with an MRA may be helpful for further assessment. Per radiology. 1234: Physical therapy evaluated the patient and she did well and will be discharged home. She needs a prescription for outpatient physical therapy. The patient will be given a prescription for Percocet 04/01/2025 and cyclobenzaprine 10 mg 3 times a day for muscle spasms. Orders Ordered: ED Orders 05/14/20 11:30 Urine Microscopic Stat Discontinued Medications Cyclobenzaprine HCl (Flexeril) 10 mg PO NOW ONE Stop: 05/14/20 09:57 Last Admin: 05/14/20 10:15 Dose: 10 mg Documented by: FARAZ Morphine Sulfate (Morphine) 4 mg IM NOW ONE Stop: 05/14/20 09:57 Last Admin: 05/14/20 10:15 Dose: 4 mg Documented by: FARAZ Vital Signs Vital signs: Vital Signs - 8 hr 05/14/20 12:37 Pulse Rate 74 Respiratory Rate 14 Blood Pressure [Left Arm] 184/86 H Pulse Oximetry 96 MDM - Back Pain/Injury Lab Data Labs: Lab Results 05/14/20 05/14/20 Range/Units 11:27 11:30 Urine Color Cancelled Urine Appearance Cancelled Urine pH Cancelled Ur Specific [place] Cancelled Urine Protein Cancelled Urine Glucose (UA) Cancelled Urine Ketones Cancelled Urine Occult Blood Cancelled Urine Nitrate Cancelled Urine Bilirubin Cancelled Urine Urobilinogen Cancelled Ur Leukocyte Esterase Cancelled Urine RBC Cancelled 0-1/hpf Urine WBC Cancelled 0-1/hpf Ur Squamous Epith Cells Cancelled 0-1 /hpf Ur Transition Epith Cell Cancelled Ur Renal Epithelial Cell Cancelled Calcium Oxalate Crystal Cancelled Uric Acid Crystals Cancelled Triple Phos Crystals Cancelled Other Crystals Cancelled Amorphous Sediment Cancelled Urine Bacteria Cancelled Occasional (0-1) D Hyaline Casts Cancelled 0-1/lpf Granular Casts Cancelled RBC Casts Cancelled WBC Casts Cancelled Other Casts Cancelled Urine Mucus Cancelled 1+ H Urine Trichomonas Cancelled Urine Yeast Cancelled Urine Sperm Cancelled Ur Culture Indicated? Cancelled Cult not indicated Micro UA Comment Cancelled Discharge Plan Departure Patient Disposition: Home Clinical Impression: Sciatica Qualifiers: Laterality: bilateral Qualified Code(s): M54.31 - Sciatica, right side Chronic low back pain Qualifiers: Back pain laterality: bilateral Sciatica presence: with sciatica Sciatica later ality: sciatica of left side Qualified Code(s): M54.42 - Lumbago with sciatica, left side Discharge Date/Time: 05/14/20 12:56 Instructions: DI for Low Back Pain, DI for Back Pain With Sciatica Activity Restrictions/Additional Instructions: 1. Follow-up with outpatient physical therapy as prescribed. 2. 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 3. Follow-up with your primary care physician. 4. Take the Percocet as prescribed. 5. Take the cyclobenzaprine as prescribed. Prescriptions: New oxycodone-acetaminophen [Percocet] 5-325 mg tablet 1 tab PO Q4-6H PRN (Reason: pain) Qty: 12 RF: 0 cyclobenzaprine 10 mg tablet 10 mg PO TID PRN (Reason: muscle spasm) Qty: 15 RF: 0 No Action cyclobenzaprine 10 mg tablet 10 mg PO Q8H PRN (Reason: muscle spasm) Qty: 10 RF: 0 hydrocodone-acetaminophen [Woodford] 5-325 mg tablet 1 tab PO Q4-6H PRN (Reason: flank pain) Qty: 7 RF: 0 sulfamethoxazole-trimethoprim [Bactrim DS] 800-160 mg tablet 1 tab PO Q12H Qty: 20 RF: 0 Referrals: Efrain Anderson MD [Primary Care Provider] -
[2020-05-14 12:37] VITALS: BP 184/86; PULSE 74; RESP 14; O2SAT 96
== END 2020-05-14 12:56 | disposition home or self-care (01) ==
PROVIDERS: Emergency Provider Emergency Medicine; PCP Family Medicine
DX: M54.42 Lumbago with sciatica, left side (principal); M54.41 Lumbago with sciatica, right side; I10 Essential (primary) hypertension
CPT/HCPCS: 72100; 81015; 96372; 97161; 99283; 99284; J2270

== ENCOUNTER 2020-05-19 08:34 | Observation (INO) | payer MEDICARE, SELFPAY ==
[2020-05-19] VITALS (17 sets, daily range): BP systolic 139–228; BP diastolic 49–97; PULSE 60–84; RESP 12–22; TEMP 36.4–36.7; O2SAT 85–98; BMI 24.7; BMI 25.2
--- NOTE | 2020-05-19 08:44 | ED.BACK ---
HPI - Back Pain/Injury General Chief Complaint: Back Pain/Injury Stated Complaint: Back pain worsening, poss kidney stones, UTI Time Seen by Provider: 05/19/20 08:40 History of Present Illness HPI Narrative: CC: Worsening Back pain HPI: The patient is an 79-year-old female who has a history of chronic low back pain. The patient states that she has received multiple epidural shots in the past. Most of the time the pain is on the left side with some left-sided sciatica. The patient was seen on May 14 at which time she was complaining of right sided back pain and was primarily tender over her right SI joints and sciatic notch without significantly radiating pain down her leg. She was discharged home placed on cyclobenzaprine 10 mg t.i.d. for muscle spasms and Percocet 5/325. She states that the medicines were helping to relieve her pain and discomfort until this morning when she developed severe left low back pain with shooting pain that was spastic down her left leg. The pain today is not like her typical left-sided low back pain. She is unable to walk because of the pain and discomfort and not because of weakness or sensory loss. She denies any loss of sensation over her rectum or perineum. She denies any incontinence of stool or urine or being plugged with constipation or retention. The pain when it occurs is 10/10 and incapacitating. At rest the pain is 7/10 in intensity and on continuous. Since being seen the last time she denies any fall or injury to her back. When she was discharged during her last visit did she asked if she had any new herniated disc and was expecting an MRI to be performed. The patient admits to a history of chronic kidney disease but denies any urinary symptoms at this time. She has had no frequency, urgency or dysuria. The patient denies a history of COPD myocardial infarction congestive heart failure diabetes mellitus pancreatitis. She admits to a history of chronic back pain with herniated discs and left-sided sciatica. She has significant degenerative back disease and kidney disease with hypertension. She is a former cigarette smoker occasionally drinks alcohol does not use any marijuana or marijuana products. Related Data Previous Rx's Medication Instructions Recorded cyclobenzaprine 10 mg PO TID PRN #15 tab 05/14/20 oxycodone-acetaminophen [Percocet] 1 tab PO Q4-6H PRN #12 tab 05/14/20 Allergies Allergy/AdvReac Type Severity Reaction Status Date / Time No Known Drug Allergies Allergy Verified 05/19/20 08:53 Review of Systems Review of Systems Narrative: REVIEW OF SYSTEMS: CONSTITUTIONAL: The patient denies any fall or injury any fever chills or sweats. The patient states that she has not been drinking much water. NEUROLOGICAL: She denies any headache numbness tingling paresthesias paresis or paralysis. Feel knee she discomfort she is having is low back pain with shooting pain down her left leg. EENT: She denies any arm change in vision loss of vision sore throat or trouble swallowing CARDIO-PULMONARY: She denies any chest pain cough shortness of breath palpitations dizziness HEMOTOLOGICAL: The patient denies any bruising or bleeding problems GASTROINTESTINAL: The patient denies any abdominal pain nausea vomiting diarrhea incontinence of stool or retention of stool with constipation GENITAL URINARY: The patient has a history of chronic kidney disease in urinary tract infections however she denies any urinary retention incontinence of urine dysuria frequency or urgency. MUSCULOSKELETAL/ RHEUMATOLOGICAL: Chronic continuous back pain Patient History Medical History (Updated 05/19/20 @ 21:48 by CIRILO Aparicio) Chronic low back pain (Inactive) Degenerative disc disease (Chronic) HTN (hypertension) (Chronic) Kidney infection (Resolved) Surgical History S/P epidural steroid injection (Resolved) Family History (Updated 05/19/20 @ 21:50 by CIRILO Aparicio) Father Heart disease Mother Cancer Brother Parkinson's disease Osteomyelitis Sister Gout Social History household members: none Smoking Status: Former smoker alcohol intake: current Smoking Status: Former smoker alcohol intake frequency: 0-2 drinks per day Alcohol type: wine Substance Use Type: does not use Exam Narrative Exam Narrative: PHYSICAL EXAM: CONSTITUTIONAL: Awake, sitting in a wheelchair and is very uncomfortable. She periodically jumps with spastic shooting pains down her left leg. HEAD: AT/NC EENT: PERRL, FROM of eyes, no discharge,. Her conjunctiva appear pale. NOSE:No epistaxis or nasal drainage MOUTH:Oral mucosa is moist and pale. Lips appear dry and pale. NECK: Supple, no obvious JVD, Trachea is midline without stridor, no palpable LN. SPINE: THORAX: No deformity, retractions, chest wall tenderness. LUNGS: Clear, symmetrical breath sounds without respiratory distress. HEART: Normal heart tones, regular rhythm and rate without murmur. ABDOMEN: Soft, non-tender. LYMPHATIC: no palpable lymph nodes or spleen. EXTREMITIES: No edema, deformity, tenderness or cyanosis. SKIN: No rash, bruising, petechiae or purpura. NEURO: Awake, alert, oriented, conversive, cranial nerves II-XII are symmetrical , moves all 4 extremities . Initial Vital Signs Initial Vital Signs: Vital Signs Temperature 98.0 F 05/19/20 08:40 Pulse Rate 76 05/19/20 08:40 Respiratory Rate 18 05/19/20 08:40 Blood Pressure 184/97 H 05/19/20 08:40 Pulse Oximetry 92 05/19/20 08:40 Course Course Course Narrative: 1140: The patient appears more ill today than she did when I 1st saw her on the . She initially denies that she coughs a significant amount. She then stated that she has a lot of coughing in the morning from nasal drainage. Her oxygen dropped to 88%. Because she has been sedentary check and in EKG, troponin, BNP, chest x-ray, and D-dimer. Her chest x-ray by my review revealed that she had linear artifact longitudinally through the right lung. However, this did not appear like the edge of the lung and a pneumothorax. Lung markings were seen peripherally all the way to the chest wall. However in the lower lung field right middle lobe there appeared an infiltrate and linear atelectasis. The patient's CT scan reveals a sinus rhythm with a ventricular rate of 75. She has a Q-wave in lead III and AVF with nonspecific ST segment changes. She has inverted T-waves in lead V1 and biphasic T-wave in V2. There is a Q-wave in lead V1. She has PVC present. There is a nonspecific ST segment depression in lead I aVL and V6. The patient has an inverted T-wave in lead aVL. The patient appears to have evidence of an inferior wall [place] age indeterminate. The patient has left axis deviation. The patient's QTC is 455 milliseconds. The rest of the patient's intervals are within normal limits. White blood count is 8.0 hemoglobin is 14.4 hematocrit 42.0, her neutrophils are 4400, monos are 1100, lymphs: 2300, ESR is elevated at 67, D-dimer is elevated at 3564, GFR is greater than 60, liver function tests are within normal limits, C reactive protein is elevated at 6.7. The patient has evidence of an acute urinary tract infection. The patient will be administered 1 L of normal saline. A CT angiogram of her chest will be ordered to rule out the possibility of a pulmonary embolism. CXR per radiology revealed 1. discoid atelectasis versus scarring at the right lung base. 2. Possible developing left basilar airspace disease. Please correlate clinically to exclude pneumonia. With the patient's elevated D-dimer a CT angiogram of the patient's chest to rule out the possibility of a pulmonary embolism has been ordered. This will also help to evaluate the patient's pulmonary findings to help rule out the possibility of pneumonia versus atelectasis. 1322: CT angiogram of the patient's chest reveals 1. no evidence of pulmonary emboli 2. Mild bilateral lower lobe atelectasis versus scarring. No definite pneumonia. 3. Small hiatal hernia. MRI: MRI of the patient's lumbar spine revealed 1. No acute lumbar fractures. 2. No disc protrusions or extrusions. 3. Moderate to severe multilevel degenerative changes of the lumbar spine are similar to the previous exam. There are multifocal areas of central canal or neuroforaminal stenosis which have not significantly progressed 4. Mild marrow edema involving the sacral ala probably is degenerative. Bone contusions or difficult to exclude. 5. Mild paraspinal soft tissue edema may represent muscle strain. The patient is hypoxic 84% oxygen saturation on room air. Oxygen saturation is 91% on 2 L and 95% on 3 L. the patient is not on home oxygen. She denies that she ever was told that she had COPD. The patient's ferritin is elevated at 314 lactate is 1.0 will call the hospitalist ( Dr. Ellis) to admit for hypoxia, low back pain and inability to walk. 1430: I discussed the patient with Dr. Ellis, she feels that her hypoxia may be secondary to the morphine and Valium that was administered to her when her Percocet and cyclobenzaprine failed to control her pain and discomfort her earlier this morning. She may come down to evaluate the patient herself. Physical therapy has been consult at to evaluate the patient's inability to ambulate and her increased pain and discomfort. 1454: The patient's arterial blood gases on removing the patient off from her oxygen and room air revealed a pH is 7.425, a pCO2 of 33.2 a PO2 of 55 and an oxygen saturation of 89%.. Dr. Ellis requested Dr. Desouza review the patients' MRI. 1525: I called and discussed the patient with Dr. Ellis and explained to her with Dr. Desouza at told me. Dr. Ellis informed me that Dr. Desouza said that there is nothing surgical. Dr. Ellis states that she is waiting for the physical therapy evaluation to decide whether not she is going to admit the patient. Nursing staff states that Physical Therapy is not available to evaluate the patient in the emergency department. The patient will be admitted observation status to Dr. Ellis Orders Ordered: Acetaminophen (Tylenol) 650 mg PO Q6HR PRN PRN Reason: Fever/Mild Pain (1-3) Al Hydrox/Mg Hydrox/Simethicone (Maalox Plus) 30 ml PO Q6HR PRN PRN Reason: Dyspepsia Bisacodyl (Dulcolax) 10 mg ID DAILY PRN PRN Reason: Constipation Calcium Carbonate (Tums) 1,000 mg PO Q4HR PRN PRN Reason: Dyspepsia Cyclobenzaprine HCl (Flexeril) 10 mg PO TID [facility] Last Admin: 05/19/20 21:49 Dose: 10 mg Documented by: CALIN Docusate Sodium (Colace) 100 mg PO BID [facility] Last Admin: 05/19/20 21:50 Dose: Not Given Documented by: CALIN Gabapentin (Neurontin) 200 mg PO TID [facility] Heparin Sodium (Porcine) (Heparin) 5,000 unit SUBCUT BID [facility] Sodium Chloride (Normal Saline 0.9%) 1,000 mls @ 75 mls/hr IV CONT [facility] Last Admin: 05/19/20 23:57 Dose: 75 mls/hr Documented by: BEAN Ketorolac Tromethamine (Toradol) 30 mg IV Q8HR [facility] Stop: 05/24/20 21:18 Last Admin: 05/20/20 05:46 Dose: 30 mg Documented by: Admin: 05/19/20 21:49 Dose: 30 mg Documented by: CALIN Naloxone HCl (Narcan) 0.2 mg IV Q2MIN PRN PRN Reason: Opiate Reversal Ondansetron HCl (Zofran) 4 mg IV Q8HR PRN PRN Reason: Nausea And Vomiting Oxycodone HCl (Percolone) 10 mg PO Q4HR PRN PRN Reason: Pain, Severe (7-10) Oxycodone HCl (Percolone) 5 mg PO Q4HR PRN PRN Reason: Pain, Moderate (4-6) Discontinued Medications Albuterol (Ventolin Hfa) 2 puff INH NOW ONE Stop: 05/19/20 11:15 Last Admin: 05/19/20 11:15 Dose: 2 puff Documented by: FERNANDO Diazepam (Valium) 2 mg IV NOW ONE Stop: 05/19/20 08:59 Last Admin: 05/19/20 09:12 Dose: 2 mg Documented by: GABRIELLA Enoxaparin Sodium (Lovenox) 40 mg SUBCUT DAILY [facility] Gabapentin (Neurontin) 200 mg PO BEDTIME [facility] Last Admin: 05/19/20 21:52 Dose: 200 mg Documented by: CALIN Sodium Chloride (Normal Saline 0.9%) 1,000 mls @ 1,000 mls/hr IV BOLUS ONE Stop: 05/19/20 09:57 Last Infusion: 05/19/20 10:21 Dose: 0 mls/hr Documented by: Admin: 05/19/20 09:15 Dose: 1,000 mls/hr Documented by: GABRIELLA Ceftriaxone Sodium/Dextrose (Rocephin) 1 gm in 50 mls @ 100 mls/hr IV NOW ONE Stop: 05/19/20 11:35 Last Infusion: 05/19/20 13:39 Dose: 0 mls/hr Documented by: Admin: 05/19/20 12:59 Dose: 100 mls/hr Documented by: AYDIN Sodium Chloride (Normal Saline 0.9%) 1,000 mls @ 150 mls/hr IV BOLUS ONE Stop: 05/19/20 19:16 Last Infusion: 05/19/20 18:01 Dose: 0 mls/hr Documented by: Infusion: 05/19/20 16:30 Dose: 0 mls/hr Documented by: Admin: 05/19/20 13:00 Dose: 150 mls/hr Documented by: AYDIN Ibuprofen (Advil) 600 mg PO Q6HR PRN PRN Reason: Pain, Moderate (4-6) Methylprednisolone (Solu-Medrol 125 Mg Vial) 125 mg IV NOW ONE Stop: 05/19/20 09:01 Last Admin: 05/19/20 09:14 Dose: 125 mg Documented by: GABRIELLA Morphine Sulfate (Morphine) 4 mg IV NOW ONE Stop: 05/19/20 08:59 Last Admin: 05/19/20 09:13 Dose: 4 mg Documented by: GABRIELLA Morphine Sulfate (Morphine) 2 mg IV NOW ONE Stop: 05/19/20 13:16 Last Admin: 05/19/20 13:20 Dose: 2 mg Documented by: AYDIN Oxycodone HCl (Percolone) 5 mg PO Q6HR PRN PRN Reason: Pain, Moderate (4-6) Oxycodone/Acetaminophen (Percocet 5/325) 1 tab PO Q4HR PRN PRN Reason: Pain, Severe (7-10) Vital Signs Vital signs: Vital Signs - 8 hr 05/19/20 08:40 05/19/20 10:04 05/19/20 11:02 Temperature 98.0 F Pulse Rate 76 77 60 Respiratory Rate 18 12 17 Blood Pressure 184/97 H Blood Pressure [Right Arm] 167/78 H 156/72 H Pulse Oximetry 92 97 93 05/19/20 11:09 05/19/20 11:30 05/19/20 12:15 Temperature Pulse Rate 70 78 79 Respiratory Rate 17 18 20 Blood Pressure Blood Pressure [Right Arm] 198/78 H 228/93 H Pulse Oximetry 85 L 98 96 05/19/20 12:31 05/19/20 13:17 05/19/20 14:00 Temperature Pulse Rate 84 79 Respiratory Rate 16 21 22 Blood Pressure Blood Pressure [Right Arm] 193/84 H 166/72 H Pulse Oximetry 94 91 92 05/19/20 14:11 05/19/20 14:30 05/19/20 15:04 Temperature Pulse Rate 79 70 Respiratory Rate 22 21 Blood Pressure Blood Pressure [Right Arm] 168/73 H Pulse Oximetry 88 L 91 91 MDM - Back Pain/Injury Lab Data Result diagrams: 05/20/20 04:50 05/20/20 04:50 Labs: Lab Results 05/19/20 05/19/20 05/19/20 Range/Units 09:19 09:19 09:19 WBC 8.0 (4.5-11.0) X10^3/uL RBC 4.23 (4.0-5.2) X10^6/uL Hgb 14.4 (12.0-16.0) g/dL Hct 42.0 (36-46) % MCV 99.3 (80-100) fL MCH 34.0 (26-34) PG MCHC 34.3 (30-36) % RDW 12.9 (11.6-14.8) % Plt Count 207 (150-400) X10^3/uL Neut % (Auto) 55.5 (50-75) % Lymph % (Auto) 28.3 (25-40) % [place] % (Auto) 13.4 (3-14) % Eos % (Auto) 2.0 (2-4) % Baso % (Auto) 0.8 (0-2) % Neut # (Auto) 4400 (0117-7236) /uL Lymph # (Auto) 2300 (4279-4869) /uL [place] # (Auto) 1100 H (0-900) /uL Eos # (Auto) 200 (0-450) /uL Baso # (Auto) 100 (0-100) /uL ESR 67 H (0-20) MM/HR D-Dimer (<230) ng/mL ABG pH (7.35-7.45) ABG pCO2 (35-45) mmHg ABG pO2 (80-100) mmHg ABG HCO3 (22-26) mmol/L ABG Total CO2 (21-31) mmol/L ABG O2 Saturation (95-100) % ABG Base Excess (-2-2) mmol/L FiO2 Sodium 138 (137-145) mmol/L Potassium 4.3 (3.4-5.1) mmol/L Chloride 102 (98-107) mmol/L Carbon Dioxide 28 (22-32) mmol/L BUN 22 H (7-17) mg/dL Creatinine 0.74 (0.52-1.04) mg/dL Estimated GFR > 60.0 (>60) mL/min BUN/Creatinine Ratio 29.7 H (6-22) Glucose 105 (80-110) mg/dL Lactate (0.7-2.1) mmol/L Calcium 9.8 (8.4-10.2) mg/dL Ferritin (11-264) ng/mL Total Bilirubin 0.8 (0.2-1.3) mg/dL AST 30 (14-36) IU/L ALT 23 (<35) IU/L Alkaline Phosphatase 68 (38-126) U/L Total Creatine Kinase 51 52 (30-135) U/L CK-MB (CK-2) TNP CK-MB (CK-2) Rel Index TNP Troponin I < 0.012 (0.01-0.034) ng/mL C-Reactive Protein 6.7 H (<1.0) mg/dL NT-Pro-B Natriuret Pep 243 (<450) pg/mL Total Protein 8.1 (6.3-8.2) g/dL Albumin 4.1 (3.5-5.0) g/dL Globulin 4.0 (1.7-4.1) g/dL Albumin/Globulin Ratio 1.0 (1.0-2.8) Urine Color Urine Appearance Urine pH (4.5-8.0) Ur Specific [place] (1.000-1.035) Urine Protein (Negative) Urine Glucose (UA) (Negative) g/dL Urine Ketones (NEGATIVE) Urine Occult Blood (Negative) Urine Nitrate (Negative) Urine Bilirubin (NEGATIVE) Urine Urobilinogen (0.2) E.U./dL Ur Leukocyte Esterase (NEGATIVE) Urine RBC (0-5/HPF) Urine WBC (0-5/HPF) Ur Squamous Epith Cells (0-5/HPF) Urine Bacteria (None) Urine Mucus (Negative) Ur Culture Indicated? COVID-19 PCR 05/19/20 05/19/20 05/19/20 Range/Units 09:19 09:19 10:30 WBC (4.5-11.0) X10^3/uL RBC (4.0-5.2) X10^6/uL Hgb (12.0-16.0) g/dL Hct (36-46) % MCV (80-100) fL MCH (26-34) PG MCHC (30-36) % RDW (11.6-14.8) % Plt Count (150-400) X10^3/uL Neut % (Auto) (50-75) % Lymph % (Auto) (25-40) % [place] % (Auto) (3-14) % Eos % (Auto) (2-4) % Baso % (Auto) (0-2) % Neut # (Auto) (4464-5560) /uL Lymph # (Auto) (3088-5960) /uL [place] # (Auto) (0-900) /uL Eos # (Auto) (0-450) /uL Baso # (Auto) (0-100) /uL ESR (0-20) MM/HR D-Dimer 3564 H (<230) ng/mL ABG pH (7.35-7.45) ABG pCO2 (35-45) mmHg ABG pO2 (80-100) mmHg ABG HCO3 (22-26) mmol/L ABG Total CO2 (21-31) mmol/L ABG O2 Saturation (95-100) % ABG Base Excess (-2-2) mmol/L FiO2 Sodium (137-145) mmol/L Potassium (3.4-5.1) mmol/L Chloride (98-107) mmol/L Carbon Dioxide (22-32) mmol/L BUN (7-17) mg/dL Creatinine (0.52-1.04) mg/dL Estimated GFR (>60) mL/min BUN/Creatinine Ratio (6-22) Glucose (80-110) mg/dL Lactate (0.7-2.1) mmol/L Calcium (8.4-10.2) mg/dL Ferritin 314 H (11-264) ng/mL Total Bilirubin (0.2-1.3) mg/dL AST (14-36) IU/L ALT (<35) IU/L Alkaline Phosphatase (38-126) U/L Total Creatine Kinase (30-135) U/L CK-MB (CK-2) CK-MB (CK-2) Rel Index Troponin I (0.01-0.034) ng/mL C-Reactive Protein (<1.0) mg/dL NT-Pro-B Natriuret Pep (<450) pg/mL Total Protein (6.3-8.2) g/dL Albumin (3.5-5.0) g/dL Globulin (1.7-4.1) g/dL Albumin/Globulin Ratio (1.0-2.8) Urine Color Yellow Urine Appearance Clear Urine pH 5.5 (4.5-8.0) Ur Specific [place] 1.025 (1.000-1.035) Urine Protein Negative (Negative) Urine Glucose (UA) Negative (Negative) g/dL Urine Ketones Negative (NEGATIVE) Urine Occult Blood Negative (Negative) Urine Nitrate Negative (Negative) Urine Bilirubin Negative (NEGATIVE) Urine Urobilinogen 0.2 (0.2) E.U./dL Ur Leukocyte Esterase 1+ H (NEGATIVE) Urine RBC 0-1/hpf (0-5/HPF) Urine WBC 1-5/hpf (0-5/HPF) Ur Squamous Epith Cells 0-1 /hpf (0-5/HPF) Urine Bacteria Many (>30) H (None) Urine Mucus 2+ H (Negative) Ur Culture Indicated? Specimen cultured COVID-19 PCR 05/19/20 05/19/20 05/19/20 Range/Units 12:17 12:25 12:25 WBC (4.5-11.0) X10^3/uL RBC (4.0-5.2) X10^6/uL Hgb (12.0-16.0) g/dL Hct (36-46) % MCV (80-100) fL MCH (26-34) PG MCHC (30-36) % RDW (11.6-14.8) % Plt Count (150-400) X10^3/uL Neut % (Auto) (50-75) % Lymph % (Auto) (25-40) % [place] % (Auto) (3-14) % Eos % (Auto) (2-4) % Baso % (Auto) (0-2) % Neut # (Auto) (6896-5629) /uL Lymph # (Auto) (1013-1275) /uL [place] # (Auto) (0-900) /uL Eos # (Auto) (0-450) /uL Baso # (Auto) (0-100) /uL ESR (0-20) MM/HR D-Dimer (<230) ng/mL ABG pH (7.35-7.45) ABG pCO2 (35-45) mmHg ABG pO2 (80-100) mmHg ABG HCO3 (22-26) mmol/L ABG Total CO2 (21-31) mmol/L ABG O2 Saturation (95-100) % ABG Base Excess (-2-2) mmol/L FiO2 Sodium (137-145) mmol/L Potassium (3.4-5.1) mmol/L Chloride (98-107) mmol/L Carbon Dioxide (22-32) mmol/L BUN (7-17) mg/dL Creatinine (0.52-1.04) mg/dL Estimated GFR (>60) mL/min BUN/Creatinine Ratio (6-22) Glucose (80-110) mg/dL Lactate 1.0 (0.7-2.1) mmol/L Calcium (8.4-10.2) mg/dL Ferritin (11-264) ng/mL Total Bilirubin (0.2-1.3) mg/dL AST (14-36) IU/L ALT (<35) IU/L Alkaline Phosphatase (38-126) U/L Total Creatine Kinase (30-135) U/L CK-MB (CK-2) CK-MB (CK-2) Rel Index Troponin I (0.01-0.034) ng/mL C-Reactive Protein (<1.0) mg/dL NT-Pro-B Natriuret Pep (<450) pg/mL Total Protein (6.3-8.2) g/dL Albumin (3.5-5.0) g/dL Globulin (1.7-4.1) g/dL Albumin/Globulin Ratio (1.0-2.8) Urine Color Urine Appearance Urine pH (4.5-8.0) Ur Specific [place] (1.000-1.035) Urine Protein (Negative) Urine Glucose (UA) (Negative) g/dL Urine Ketones (NEGATIVE) Urine Occult Blood (Negative) Urine Nitrate (Negative) Urine Bilirubin (NEGATIVE) Urine Urobilinogen (0.2) E.U./dL Ur Leukocyte Esterase (NEGATIVE) Urine RBC (0-5/HPF) Urine WBC (0-5/HPF) Ur Squamous Epith Cells (0-5/HPF) Urine Bacteria (None) Urine Mucus (Negative) Ur Culture Indicated? COVID-19 PCR Cancelled Negative 05/19/20 Range/Units 14:35 WBC (4.5-11.0) X10^3/uL RBC (4.0-5.2) X10^6/uL Hgb (12.0-16.0) g/dL Hct (36-46) % MCV (80-100) fL MCH (26-34) PG MCHC (30-36) % RDW (11.6-14.8) % Plt Count (150-400) X10^3/uL Neut % (Auto) (50-75) % Lymph % (Auto) (25-40) % [place] % (Auto) (3-14) % Eos % (Auto) (2-4) % Baso % (Auto) (0-2) % Neut # (Auto) (3479-8894) /uL Lymph # (Auto) (5702-9634) /uL [place] # (Auto) (0-900) /uL Eos # (Auto) (0-450) /uL Baso # (Auto) (0-100) /uL ESR (0-20) MM/HR D-Dimer (<230) ng/mL ABG pH 7.43 (7.35-7.45) ABG pCO2 33.2 L (35-45) mmHg ABG pO2 55 L (80-100) mmHg ABG HCO3 22 (22-26) mmol/L ABG Total CO2 23 (21-31) mmol/L ABG O2 Saturation 89 L (95-100) % ABG Base Excess -3.0 L (-2-2) mmol/L FiO2 21 Sodium (137-145) mmol/L Potassium (3.4-5.1) mmol/L Chloride (98-107) mmol/L Carbon Dioxide (22-32) mmol/L BUN (7-17) mg/dL Creatinine (0.52-1.04) mg/dL Estimated GFR (>60) mL/min BUN/Creatinine Ratio (6-22) Glucose (80-110) mg/dL Lactate (0.7-2.1) mmol/L Calcium (8.4-10.2) mg/dL Ferritin (11-264) ng/mL Total Bilirubin (0.2-1.3) mg/dL AST (14-36) IU/L ALT (<35) IU/L Alkaline Phosphatase (38-126) U/L Total Creatine Kinase (30-135) U/L CK-MB (CK-2) CK-MB (CK-2) Rel Index Troponin I (0.01-0.034) ng/mL C-Reactive Protein (<1.0) mg/dL NT-Pro-B Natriuret Pep (<450) pg/mL Total Protein (6.3-8.2) g/dL Albumin (3.5-5.0) g/dL Globulin (1.7-4.1) g/dL Albumin/Globulin Ratio (1.0-2.8) Urine Color Urine Appearance Urine pH (4.5-8.0) Ur Specific [place] (1.000-1.035) Urine Protein (Negative) Urine Glucose (UA) (Negative) g/dL Urine Ketones (NEGATIVE) Urine Occult Blood (Negative) Urine Nitrate (Negative) Urine Bilirubin (NEGATIVE) Urine Urobilinogen (0.2) E.U./dL Ur Leukocyte Esterase (NEGATIVE) Urine RBC (0-5/HPF) Urine WBC (0-5/HPF) Ur Squamous Epith Cells (0-5/HPF) Urine Bacteria (None) Urine Mucus (Negative) Ur Culture Indicated? COVID-19 PCR Discharge Plan Departure Patient Disposition: Admitted as Observation Clinical Impression: Chronic low back pain, Hypoxia Sciatica Qualifiers: Laterality: left Qualified Code(s): M54.32 - Sciatica, left side Discharge Date/Time: 05/19/20 18:41 Referrals: Efrain Anderson MD [Primary Care Provider] - Admit Date/Time: 05/19/20 17:06 Admit Provider: Lauryn Ellis
--- NOTE | 2020-05-19 08:57 | DI.MRI.S_ITS ---
PROCEDURE: MR LUMBAR SPINE WO CON INDICATIONS: severe pain shooting down left leg/sciatica TECHNIQUE: Noncontrast sagittal T1 spin echo and T2 fast echo, sagittal STIR, axial T1 and T2 fast spin echo through the lumbar spine. In cases with scoliosis, additional coronal T2 fast spin echo may be performed. COMPARISON: [facility], MR, MR LUMBAR SPINE WO CON, 06/14/2018, 19:33. FINDINGS: Image quality: Diagnostic. Spinal Cord: The imaged portions of the spinal cord are normal in size and signal. The conus medullaris is normal in position. Paraspinous Soft Tissues: No paravertebral masses. Image soft tissues of the abdomen and pelvis are grossly unremarkable; however, not adequately evaluated on this exam. The abdominal aorta is normal in course and caliber. Mild edema is identified within the paraspinal muscles of the mid to lower lumbar region. No intramuscular fluid collections are appreciated. Bones: The vertebral body heights and marrow signal are within normal limits. There is no acute fracture or dislocation. No suspicious osseous lesions are evident. Small hemangiomas appear to be present involving the L1 and L2 vertebral bodies. Lower thoracic levels: Moderate degenerative changes of the included portions of the lower thoracic spine are present with a small posterior disc bulges and facet arthrosis. There are areas of mild bony neural foraminal narrowing (left greater than right). No significant central canal stenosis is evident. L1-L2: There is disc desiccation and diffuse disc bulge. Moderate facet arthropathy is present at this level. There is no central canal stenosis. However, there is severe bilateral neural foraminal narrowing (right greater than left). These findings have not significantly progressed. L2-L3: There is disc height loss, diffuse disc bulge, endplate irregularity, edematous degenerative end plate changes, and moderate to severe facet arthrosis. These findings result in moderate to severe central canal stenosis and moderate to severe bilateral neural foraminal narrowing (right greater than left). These findings have not significantly progressed. L3-L4: There is disc desiccation and diffuse disc bulge with associated moderate facet arthrosis. These findings result in mild central canal stenosis and moderate to severe bilateral neuroforaminal stenosis. These findings are similar to the prior study. L4-L5: There is disc height loss, diffuse disc bulge, disc desiccation, fatty degenerative endplate changes, and severe facet arthrosis. There is moderate central canal stenosis, severe left neural foraminal stenosis, and mild to moderate right neural foraminal narrowing. These findings are similar to the prior exam. L5-S1: There is disc desiccation and diffuse disc bulge with severe facet arthrosis. There is no central canal stenosis. However, there is moderate to severe bilateral neural foraminal narrowing, similar to the prior exam. Sacrum: The included portions of the sacrum and sacroiliac joints demonstrate moderate degenerative changes. There appears to be mild marrow edema involving the bilateral sacral ala. No fracture lines are appreciated. IMPRESSION: 1. No acute lumbar fractures. 2. No disc protrusions or extrusions. 3. Moderate to severe multilevel degenerative changes of the lumbar spine are similar to the previous exam. There are multifocal areas of central canal or neural foraminal stenosis, which have not significantly progressed. 4. Mild marrow edema involving the sacral ala probably is degenerative. Bone contusions are difficult to exclude. 5. Mild paraspinal soft tissue edema may represent muscle strains. Dictated by: Cy Lewis M.D. on 05/19/2020 at 11:28 Approved by: Cy Lewis M.D. on 05/19/2020 at 11:39
--- NOTE | 2020-05-19 09:06 | PC.NURSE ---
Pt seen previously in this ED for same. Has now failed outpatient treatment. Is unable to walk w/ walker r/t pain. Home pain meds are not helpful. Decreased po intake r/t being in bed all the time. Denies numbness/weakness/urinary or bowel difficulty. a/o x 4
[2020-05-19] MEDS: diazePAM 10 MG/2 ML SYRINGE 2 MG IV (09:12)
[2020-05-19] MEDS: MORPHINE 4 MG/ML INJ IV (09:13)
[2020-05-19] MEDS: methylPREDNISolone 125 MG/2 ML VIAL IV (09:14)
[2020-05-19] MEDS: SODIUM CHLORIDE 0.9% 1,000 ML 1000 ML IV (09:15)
[2020-05-19 09:30] LABS: Add Manual Diff / Slide Review NO; Basophils Absolute Auto 100 /uL (0-100); Basophils Percent Auto 0.8 % (0-2); Eosinophils Absolute Auto 200 /uL (0-450); Hemoglobin 14.4 g/dL (12.0-16.0); Lymphocytes Absolute Auto 2300 /uL (1100-4500); Lymphocytes Percent Auto 28.3 % (25-40); Mean Corpuscular HGB Conc 34.3 % (30-36); Mean Corpuscular Volume 99.3 fL (80-100); Monocytes Absolute Auto 1100 /uL (0-900); Monocytes Percent Auto 13.4 % (3-14); Neutrophils Absolute Auto 4400 /uL (1500-7000); Neutrophils Percent Auto 55.5 % (50-75); Platelet Count 207 X10^3/uL (150-400); Red Blood Cell Count 4.23 X10^6/uL (4.0-5.2); Red Cell Distribution Width 12.9 % (11.6-14.8)
[2020-05-19 09:43] LABS: Alanine Aminotransferase 23 IU/L (<35); Albumin 4.1 g/dL (3.5-5.0); Alkaline Phosphatase 68 U/L (38-126); Aspartate Aminotransferase 30 IU/L (14-36); BUN Creatinine Ratio 29.7 (6-22); Bilirubin Total 0.8 mg/dL (0.2-1.3); Blood Urea Nitrogen 22 mg/dL (7-17); C-Reactive Protein Quant 6.7 mg/dL (<1.0); Calcium 9.8 mg/dL (8.4-10.2); Carbon Dioxide 28 mmol/L (22-32); Chloride 102 mmol/L (98-107); Creatine Kinase 51 U/L (30-135); Estimated Glomerular Filt Rate > 60.0 mL/min (>60); Glucose 105 mg/dL (80-110); HEMOLYSIS < 15 (0-50); Potassium 4.3 mmol/L (3.4-5.1); Sodium 138 mmol/L (137-145); Total Protein 8.1 g/dL (6.3-8.2)
[2020-05-19 09:47] LABS: Erythrocyte Sedimentation Rate 67 MM/HR (0-20)
--- NOTE | 2020-05-19 10:06 | PC.NURSE ---
Patient in room with her daughter. Patient was medicated for pain in her wheel chair before two associate [employer] of [employer] to [facility]. She became sleepy after pain medication. She was given supplemental oxygen at 2l nasal cannula and put on continuous pulse oxygen monitoring as well as blood pressure. She was able to transfer to bed without any problems. Upon follow up she was feeling better and reported that her pain was reduced. She was more alert. Daughter still at bedside and call light was in reach.
[2020-05-19 10:46] LABS: Appearance Urine UA CLEAR; Bilirubin Urine UA NEGATIVE (NEGATIVE); Color Urine UA YELLOW; Glucose Urine UA NEGATIVE (Negative); Ketones Urine UA NEGATIVE (NEGATIVE); Leukocyte Esterase Urine UA 1+ (NEGATIVE); Nitrite Urine UA NEGATIVE (Negative); Occult Blood Urine UA NEGATIVE (Negative); Protein Urine UA NEGATIVE (Negative); Specific Gravity Urine UA 1.025 (1.000-1.035); Urobilinogen Urine UA 0.2 E.U./dL (0.2)
[2020-05-19 10:56] LABS: pH Urine UA 5.5 (4.5-8.0)
[2020-05-19 10:57] LABS: Bacteria Urine Many (>30); Mucus Urine 2+ (Negative); RBC Urine 0-1/HPF (0-5/HPF); Squamous Epithelial Cell Urine 0-1 /HPF (0-5/HPF); WBC Urine 1-5/HPF (0-5/HPF)
[2020-05-19 10:58] LABS: Culture Indicated Urine Specimen Cultured
--- NOTE | 2020-05-19 11:13 | DI.RAD.S_ITS ---
PROCEDURE: XR CHEST 1V INDICATIONS: hypoxia TECHNIQUE: One view of the chest was acquired. COMPARISON: None. FINDINGS: Surgical changes and devices: None. Lungs and pleura: Linear area of increased density is evident at the right lung base. No large effusion or pneumothorax is evident. There may be developing airspace disease at the left lung base. Mediastinum: Mediastinal contours appear normal. Heart size is normal. Bones and chest wall: No suspicious bony lesions. Overlying soft tissues appear unremarkable. IMPRESSION: 1. Discoid atelectasis versus scarring at the right lung base. 2. Possible developing left basilar airspace disease. Please correlate clinically to exclude pneumonia. Dictated by: Cy Lewis M.D. on 05/19/2020 at 10:49 Approved by: Cy Lewis M.D. on 05/19/2020 at 10:50
[2020-05-19] MEDS: ALBUTEROL HFA 60 PUFF/8 GM INH INH (11:15)
[2020-05-19 11:31] LABS: Creatine Kinase 52 U/L (30-135)
[2020-05-19 11:44] LABS: D Dimer 3564 ng/mL (<230); NT-proBNP (BNP-Adult 18+) 243 pg/mL (<450); Troponin I < 0.012 ng/mL (0.01-0.034)
--- NOTE | 2020-05-19 11:58 | DI.CT.S_ITS ---
PROCEDURE: CT ANGIO CHEST PE PROTOCOL INDICATIONS: hypoxia, elevated d-dimer, Back pain TECHNIQUE: After the administration of intravenous contrast, 2 mm thick sections acquired from the pulmonary apices to the posterior costophrenic angles. 3-dimensional maximum intensity projection (MIP) coronal and sagittal reformats were then acquired through the thorax. For radiation dose reduction, the following was used: automated exposure control, adjustment of mA and/or kV according to patient size. COMPARISON: None. FINDINGS: Image quality: Diagnostic. Pulmonary arteries: Pulmonary arteries are normal in size, and demonstrate no intraluminal filling defects to suggest central pulmonary embolism. Lungs and pleura: Discoid atelectasis within the right lower lobe is present. Additional areas of scarring versus atelectasis within the bilateral posterior costophrenic angles is present. No effusion or pneumothorax is evident. No overt heart failure is identified. There is no lung mass or definite pulmonary nodule. Mediastinum: Heart size is normal, without pericardial effusion. No mediastinal or hilar adenopathy. Thoracic aorta is normal in caliber and enhancement. Esophagus is normal in caliber. There is a small hiatal hernia. There is aortic atherosclerosis. There may be mild atherosclerosis involving the left anterior descending coronary artery, as well. Bones and chest wall: No suspicious bony lesions. Ribs and thoracic spine appear intact throughout. Thyroid gland is not enlarged were adequately characterized. No axillary or supraclavicular adenopathy. Abdomen: The included imaged portions of the upper abdomen demonstrates multiple hypodense lesions within the liver and kidneys, most likely representing small cysts. Otherwise, the included portions of the upper abdomen are unremarkable. IMPRESSION: 1. No evidence of pulmonary emboli. 2. Mild bilateral lower lobe atelectasis versus scarring. No definite pneumonia. 3. Small hiatal hernia. Dictated by: Cy Lewis M.D. on 05/19/2020 at 12:10 Approved by: Cy Lewis M.D. on 05/19/2020 at 12:14
[2020-05-19 12:53] LABS: Ferritin 314 ng/mL (11-264)
[2020-05-19] MEDS: CEFTRIAXONE 1 GM/50 ML FROZ.PIGGY IV (12:59)
[2020-05-19] MEDS: SODIUM CHLORIDE 0.9% 1,000 ML 150 ML IV (13:00)
[2020-05-19] MEDS: MORPHINE 2 MG/ML INJ IV (13:20)
[2020-05-19 14:37] LABS: COVID19 -Nasal RAPID Negative (Negative)
[2020-05-19 14:46] LABS: Fractionated Inspired Oxygen 21; HCO3 ABG 22 mmol/L (22-26); Oxygen Saturation ABG 89 % (95-100); PCO2 ABG 33.2 mmHg (35-45); PO2 ABG 55 mmHg (80-100); TCO2 ABG 23 mmol/L (21-31); pH ABG 7.43 (7.35-7.45)
--- NOTE | 2020-05-19 16:00 | PT.IIE ---
Surgical History (Last Reviewed 05/14/20 @ 19:37 by Eben Hannah MD) S/P epidural steroid injection (Resolved) Medical History (Last Reviewed 05/14/20 @ 19:37 by Eben Hannah MD) Degenerative disc disease (Chronic) HTN (hypertension) (Chronic) Kidney infection (Resolved) Physical Therapy Inpatient Evaluation/Re-Eval M1 PT/OT-IP Prior Functional Status Start: 05/19/20 17:54 Freq: NEEDED Status: Active Protocol: Document 05/19/20 16:00 AB (Rec: 05/19/20 18:12 AB [id number]) Medical Review Prior Functional Status Medical History Reviewed Yes Communication able to make needs known Mobility and Gait pt stated that she is modified independent with all mobilities and ambulation without AD Prior Functional Level (Other details) Daughter form [place] with pt and stated that pt back pain down to her LLE is worse and has not been able to move at home and was not able to get out of bed much Social History Household Members none Living Arrangements House Number of Floors (Floors) Two Floors Number of Stairs To Enter/Railing? pt stays on main level of the house no steps to enter Home Environment Standard Height Toilet Home Equipment Four Wheel Walker Additional Social History Comment has a 4WW that she borrowed from a neighbor M2 PT-IP Current Condition Start: 05/19/20 17:54 Freq: NEEDED Status: Active Protocol: Document 05/19/20 16:00 AB (Rec: 05/19/20 18:12 AB [id number]) Physical Therapy Current Condition Current Condition Evaluation Date 05/19/20 Treatment Diagnosis chronic back pain; difficulty in walking Onset Date 05/19/20 Precautions Other Precautions O2 sat; droplet precautions M3 PT-IP Subjective Start: 05/19/20 17:54 Freq: NEEDED Status: Active Protocol: Document 05/19/20 16:00 AB (Rec: 05/19/20 18:12 AB [id number]) Subjective Physical Therapy Visit Type Type Initial Evaluation Visit Start Time 16:00 Visit Stop Time 16:45 Total Visit Minutes 45 Number of CORRESPONDENCE TRANSCRIBER Visits 0 Therapy Pain Assessment Pain When Pain Assessed At Rest Pain Present Pain Present Pain Reported Location Back Intensity 5 Scale Used increases to 10/10 with mobility Pain Management Techniques Modification of Treatment,Re- positioning,Timing of Activity with Medications M4 PT-IP Mobility and Gait Start: 05/19/20 17:54 Freq: NEEDED Status: Active Protocol: Document 05/19/20 16:00 AB (Rec: 05/19/20 18:12 AB [id number]) PT-Bed Mobility Assessment Supine to Sit Supine to Sit Standby Assistance,Head of Bed Elevated Sit to Supine Sit to Supine Standby Assistance,Head of Bed Elevated PT-Transfer Assessment Sit to and From Stand Sit to and from Stand Standby Assistance,1 Person Assistance,Use of Upper Extremities Equipment Transfer Assistive Device Gait Belt,Front Wheeled Walker Orthotic/Prosthetic Devices or Brace: No Comments Mobility Comments completed supine to sit with HOB elevated SBA. O2 sat at rest 94% with 3L/min O2. completed sit to stand SBA and ambulated ~ 3 ft using FWW SBA but O2 sat decreased to 80 %. instructed pt to back up to sit back on bed. cued to take deep breaths. asked pt regarding SOB and stated some but pt in no apparent distress . completed sit to supine SBA and O2 sat increased to 92%. informed nurse regarding O2 sat. also informed Dr. Ellis. Gait Assessment Gait Gait Assistance Required: Standby Assistance Distance (Feet) 6 Able to Maintain Weight Bearing Status Yes During Gait Assistive Devices Assistive Device Gait Belt,Front Wheeled Walker Orthotic/Prosthetic Devices or Brace: No Gait Deviations General Gait Pattern Step-to Gait Factors Limiting Gait Function Factors Limiting Gait Function Decreased Activity Tolerance, Decreased Strength,Limited Range of Motion,Pain, Respiratory Distress Comments Gait Comments pls refer to mobility section for details PT-Balance Assessment Sitting Balance and Reactions Static Sitting Balance Ability Good Dynamic Sitting Balance Ability Good Standing Balance and Reactions Static Standing Balance Ability Fair Dynamic Standing Balance Ability Fair Device Used FWW M5 PT-IP Objective Assessments Start: 05/19/20 17:54 Freq: NEEDED Status: Active Protocol: Document 05/19/20 16:00 AB (Rec: 05/19/20 18:12 AB [id number]) Orientation Orientation/Cognition Level of Alertness Alert Orientation Name,Place,Situation Language Function Ability Hard of Hearing Safety Awareness Decreased Safety Awareness Gross Range of Motion Lower Extremity ROM Assessment Within Functional Limits Strength Lower Extremity Strength Assessment Bilaterally Impaired Hip 3+/5 Knee 4-/5 Coordination Assessment Gross Coordination Gross Coordination WNL Muscle Tone Muscle Tone WNL Yes M6 PT-IP Treatment Start: 05/19/20 17:54 Freq: NEEDED Status: Active Protocol: Document 05/19/20 16:00 AB (Rec: 05/19/20 18:12 AB [id number]) Physical Therapy Treatment Education Education Provided Safety M7 PT-IP Assessment and Plan Start: 05/19/20 17:54 Freq: NEEDED Status: Active Protocol: Document 05/19/20 16:00 AB (Rec: 05/19/20 18:12 AB [id number]) PT Summary Assessment and Plan Potential Rehabilitation Potential Fair Status of Condition at Evaluation Evolving Summary Impairments Pain,ROM,Strength,Balance,Bed Mobility,Transfers,Gait, Activity Tolerance Assessment Summary Pt presented to the ER due to LBP. Received PT eval order. Dr. Ellis requested PT order to determine safe d/c home. Talked to ER nurse and stated that pt has back pain but O2 sat is also low and cannot be sent home with O2. PT eval completed and pt only requiring SBA with mobility despite c/o pain but unable to tolerate much activity due to decrease in O2 sat with 3L/ min O2. O2 sat decrease to 80 % with 3 ft of ambulation. pt 's back pain at rest is at 5/ 10 but increases to 10/10 with movement but goes back down to 5/10 after a few seconds of rest. pt is not safe to go home more due to decrease in O2 sat affecting mobility and functional independence. Goals Bed Mobility Goal Independent Transfer Goal Independent,Front Wheeled Walker,Four Wheeled Walker Gait Goal Independent,Crutches,Four Wheel Walker Gait Distance 200 Days to Meet Goals 5 Frequency of Treatment Frequency Of Treatment Once a Day Treatment Plan Physical Therapy Treatment Plan Bed Mobility Training,Transfer Training,Gait Training, Therapeutic Exercise,Balance Retraining,Discharge Planning, Neuromuscular Re-ed Recommendations To Nursing Amount of Assist Needed 1 Person Assist Discharge Recommendations PT Discharge Recommendations Home with Assistance,Home Health,SNF Rehab Other Discharge Recommendations depending on progress: SNF vs home with assistance and homehealth PT Equipment Needed for Home Before FWW if not safe with 4WW Discharge Transportation Needs at Discharge Private Vehicle,Wheelchair/ Cabulance
--- NOTE | 2020-05-19 16:04 | PC.NURSE ---
Addendum entered by Ava Sagastume R.N. 05/19/20 16:10: Physical therapy now available and is in w/ patient. Original Note: Dr. Ellis requesting PT consult prior to admission, Physical therapy unavailable.
[2020-05-19 17:40] LABS: Lactate Dehydrogenase 589 U/L (313-618)
[2020-05-19 17:56] LABS: Procalcitonin < 0.05 ng/mL (<0.5)
--- NOTE | 2020-05-19 21:22 | P.HP_ITS ---
History of Present Illness History of Present Illness Date Patient Seen: 05/19/20 Time Patient Seen: 20:22 Chief complaint: Back pain worsening, poss kidney stones, UTI Narrative: Ms. Juli Munoz is an 79-year-old female with a history significant for chronic back pain with degenerative disc disease, hypertension and prior kidney infection who presents to the ER for worsening back pain with radiation to the left leg. The patient was seen on 05/07/2020 when she presented complaints of chronic back pain and states she ranged her back the day before. Patient also presented with right CVA tenderness that time and had a CT exam that was negative for pyelonephritis and was discharged home on Bactrim DS. Her urine culture revealed scant polymicrobial growth and was not cultured. She returned on 05/14/2020 with low back pain radiating to the right leg. The patient was treated conservatively with no acute findings with evaluation by physical therapy in found be safe for discharge to home. Patient returned again today with worsening back pain stating she was unable to walk and obtained a walker from her friend but has been minimally ambulatory at home and has been spending most her time in bed. Patient has long history of lumbar back disease and in 2008 required for epidural steroid injections manage her condition. She has never had spinal surgery nor evaluation by spinal surgeon. The patient describes focal pain in the lumbar spine associated with twisting motions that is a 2/10 at rest and increases to sharp severe pain with movement. She describes pain radiating into the left buttock and into the left leg but not producing numbness or tingling. She has had no complaints of loss of bowel or bladder control. The patient does endorse a history of hypertension that she states is sometimes high and sometimes low had previously been on medication but is no longer taking due to side effects. She denies recent illness or COVID-19 exposures. She has had no fevers or chills or complaints of diaphoresis. She denies complaints of headaches or dizziness, nasal congestion or sore throat. She reports no shortness of breath or exertional dyspnea though she is not aerobically challenged. She denies wheezing and does endorse an occasional morning cough that she relates to postnasal drip for which she will use Claritin. Denies epigastric or abdominal pain, nausea vomiting, diarrhea or constipation. She reports no urinary symptoms of urgency, frequency burning or hematuria. Upon arrival to the ER the patient has a temperature of 98.0? with heart rate of 76, blood pressure 184/97, respiratory rate of 18 saturating 92% on room air. Lumbar MRI is obtained finding loss of disc height at multiple levels with no disc protrusions or extrusions. No acute lumbar fractions, moderate to severe multilevel degenerative changes lumbar spine that her similar to the prior exam. There are multifocal areas central canal and neural foraminal stenoses which have not significantly progressed. Mild marrow edema involving the sacral all a is thought to be degenerative, mild paraspinal soft tissue edema may represent muscle strains. A CT is obtained due to sedentary nature and relative hypoxemia which is negative for PE shows mild bilateral atelectasis versus scarring, no pneumonia and a small hiatal hernia. Arterial blood gas finds a pH 7.43, pCO2 of 33.2, PO2 55, bicarb of 22 and a base excess of -3 on 21% FiO2. Twelve lead EKG is obtained finding sinus rhythm with ventricular rate of 74 with PVC, inferior Q-waves but no acute evidence of in [place] or infarct. On laboratory analysis the patient has a white count of 8.0 with normal neutrophil and lymphocyte counts with elevated monocytes at 1100. She has an elevated ESR at 67, D-dimer 3564, C reactive protein is 6.7 and procalcitonin that is negative at less than 0.05.. Lactic acid is 1.0. She also has an elevated ferritin level at 314 and LDH normal at 589. On chemistry she has normal electrolytes a BUN of 22 and creatinine 0.74 and a nonfasting glucose of 105. Liver functions are all within normal limits with an albumin of 4.1. Her total CK is 52 with a troponin is negative at less than 0.012 and a proBNP of 243. COVID-19 screening is negative. In the ER the patient received methylprednisolone 125 mg, 2 doses of morphine 2 mg and 4 mg, Valium 2 mg and [address] L of IV fluid. Dr[address] Desouza, orthopedics, is consulted through the emergency department. The patient is admitted to the medicine service with intractable back pain in the setting of chronic lumbar disc disease and hypoxemia. Patient's PCP is Dr. Tobin. Patient History Medical History (Updated 05/19/20 @ 21:48 by CIRILO Aparicio) Chronic low back pain (Inactive) Degenerative disc disease (Chronic) HTN (hypertension) (Chronic) Kidney infection (Resolved) Surgical History S/P epidural steroid injection (Resolved) Family & Social History Family History (Updated 05/19/20 @ 21:50 by CIRILO Aparicio) Father Heart disease Mother Cancer Brother Parkinson's disease Osteomyelitis Sister Gout Social History: household members none Prior Living Arrangements House Safety & Behavioral: Feels Safe in Current Yes Environment Been Physically Hurt or No Threatened By a Person Suicidal Ideation Description None Suicide Plan Description No Plan Tobacco & Substance use: Smoking Status Former smoker alcohol intake current alcohol intake frequency 0-2 drinks per day Substance Use Type does not use Comment: The patient is and lives alone in a single family home. Smoking: Patient is a former smoker stating she quit at age 21. Alcohol: Patient endorses consuming too glass of wine daily. Substance use: The patient denies use of recreational pharmaceuticals, herbal or cannabis products. Advanced directives: In direct discussion with the patient she states her desire to be DO NOT RESUSCITATE. She designates her daughter to be her surrogate decision maker. Meds Home Medications and Allergies Home Medications Medication Instructions Recorded Confirmed Type cyclobenzaprine 10 mg PO TID PRN #15 tab 05/14/20 05/19/20 Rx oxycodone-acetaminophen [Percocet] 1 tab PO Q4-6H PRN #12 tab 05/14/20 05/19/20 Rx Allergies Allergy/AdvReac Type Severity Reaction Status Date / Time No Known Drug Allergies Allergy Verified 05/19/20 08:53 Review of Systems Review of Systems ROS: Yes All systems reviewed with the patient and are negative except as otherwise documented Exam Vital Signs (past 8 hours): - 05/19/20 14:00 05/19/20 14:11 05/19/20 14:30 Temperature Pulse Rate 79 79 Respiratory Rate 22 22 Blood Pressure Blood Pressure [Right Arm] 166/72 H 168/73 H Pulse Oximetry 92 88 L 91 05/19/20 15:04 05/19/20 17:10 05/19/20 17:59 Temperature Pulse Rate 70 70 72 Respiratory Rate 21 18 16 Blood Pressure Blood Pressure [Right Arm] 172/67 H Pulse Oximetry 91 91 88 L 05/19/20 18:28 05/19/20 18:45 Temperature 98 F Pulse Rate 78 82 Respiratory Rate 22 16 Blood Pressure 150/81 H Blood Pressure [Right Arm] Pulse Oximetry 97 96 Oxygen Delivery Method Nasal Cannula Oxygen Flow Rate 1 Narrative Exam Narrative: GENERAL APPEARANCE: well developed, well nourished elderly female lying in bed in no acute distress. HEENT: Normocephalic, PERRLA, bilateral arcus senilis, conjunctiva clear, sclerae anicteric, EOMs intact without nystagmus, no sinus tenderness to percussion, no rhinorrhea, mucous membranes are moist and pink without lesions or exudate. NECK/THYROID: neck supple, no JVD, no carotid bruit, no thyromegaly, trachea midline. LYMPH NODES: no cervical or supraclavicular lymphadenopathy. SKIN: [place], warm and dry, decreased skin turgor, no visible lesions or rashes. HEART: regular rate and rhythm, S1-S2, 1/6 systolic murmur, no rubs or gallops, brisk capillary refill, no edema LUNGS: clear to auscultation bilaterally, no coarseness crackles or wheezing, no cough present CHEST: Symmetrical movement, no accessory muscle use, good tidal volume. ABDOMEN: Soft, no distention, no abdominal tenderness, no guarding or peritoneal signs, no organomegaly, no suprapubic tenderness, active bowel tones. BACK: Will left posterior flank palpation produces lumbar spine pain, pain on palpation with palpable muscle spasms bilateral paraspinal lumbar region, patient able to lift both legs with minimal back pain. EXTREMITIES: moves all extremities, dorsi and plantar flexion is 5/5 and symmetrical, no deformities or joint effusions, 1+ patellar DTR, 2+ brachial DTR. NEUROLOGIC: AAO x4, no focal neurologic deficits, cranial nerves II-XII grossly intact, sensation intact to light touch in all extremities, hearing grossly normal to speech. PSYCH: Good eye contact, linear thought process, cooperative, stable behavior. Objective Labs Result Diagrams: 05/19/20 09:05/19/20 09:19 Labs: Laboratory Results - last 24 hr 05/19/20 05/19/20 05/19/20 09:19 09:19 09:19 WBC 8.0 RBC 4.23 Hgb 14.4 Hct 42.0 MCV 99.3 MCH 34.0 MCHC 34.3 RDW 12.9 Plt Count 207 Neut % (Auto) 55.5 Lymph % (Auto) 28.3 [place] % (Auto) 13.4 Eos % (Auto) 2.0 Baso % (Auto) 0.8 Neut # (Auto) 4400 Lymph # (Auto) 2300 [place] # (Auto) 1100 H Eos # (Auto) 200 Baso # (Auto) 100 ESR 67 H D-Dimer ABG pH ABG pCO2 ABG pO2 ABG HCO3 ABG Total CO2 ABG O2 Saturation ABG Base Excess FiO2 Sodium 138 Potassium 4.3 Chloride 102 Carbon Dioxide 28 BUN 22 H Creatinine 0.74 Estimated GFR > 60.0 BUN/Creatinine Ratio 29.7 H Glucose 105 Lactate Calcium 9.8 Ferritin Total Bilirubin 0.8 AST 30 ALT 23 Alkaline Phosphatase 68 Lactate Dehydrogenase Total Creatine Kinase 51 52 CK-MB (CK-2) TNP CK-MB (CK-2) Rel Index TNP Troponin I < 0.012 C-Reactive Protein 6.7 H NT-Pro-B Natriuret Pep 243 Total Protein 8.1 Albumin 4.1 Globulin 4.0 Albumin/Globulin Ratio 1.0 Procalcitonin Urine Color Urine Appearance Urine pH Ur Specific [place] Urine Protein Urine Glucose (UA) Urine Ketones Urine Occult Blood Urine Nitrate Urine Bilirubin Urine Urobilinogen Ur Leukocyte Esterase Urine RBC Urine WBC Ur Squamous Epith Cells Urine Bacteria Urine Mucus Ur Culture Indicated? COVID-19 PCR 05/19/20 05/19/20 05/19/20 09:19 09:19 10:30 WBC RBC Hgb Hct MCV MCH MCHC RDW Plt Count Neut % (Auto) Lymph % (Auto) [place] % (Auto) Eos % (Auto) Baso % (Auto) Neut # (Auto) Lymph # (Auto) [place] # (Auto) Eos # (Auto) Baso # (Auto) ESR D-Dimer 3564 H ABG pH ABG pCO2 ABG pO2 ABG HCO3 ABG Total CO2 ABG O2 Saturation ABG Base Excess FiO2 Sodium Potassium Chloride Carbon Dioxide BUN Creatinine Estimated GFR BUN/Creatinine Ratio Glucose Lactate Calcium Ferritin 314 H Total Bilirubin AST ALT Alkaline Phosphatase Lactate Dehydrogenase Total Creatine Kinase CK-MB (CK-2) CK-MB (CK-2) Rel Index Troponin I C-Reactive Protein NT-Pro-B Natriuret Pep Total Protein Albumin Globulin Albumin/Globulin Ratio Procalcitonin Urine Color Yellow Urine Appearance Clear Urine pH 5.5 Ur Specific [place] 1.025 Urine Protein Negative Urine Glucose (UA) Negative Urine Ketones Negative Urine Occult Blood Negative Urine Nitrate Negative Urine Bilirubin Negative Urine Urobilinogen 0.2 Ur Leukocyte Esterase 1+ H Urine RBC 0-1/hpf Urine WBC 1-5/hpf Ur Squamous Epith Cells 0-1 /hpf Urine Bacteria Many (>30) H Urine Mucus 2+ H Ur Culture Indicated? Specimen cultured COVID-19 PCR 05/19/20 05/19/20 05/19/20 12:17 12:25 12:25 WBC RBC Hgb Hct MCV MCH MCHC RDW Plt Count Neut % (Auto) Lymph % (Auto) [place] % (Auto) Eos % (Auto) Baso % (Auto) Neut # (Auto) Lymph # (Auto) [place] # (Auto) Eos # (Auto) Baso # (Auto) ESR D-Dimer ABG pH ABG pCO2 ABG pO2 ABG HCO3 ABG Total CO2 ABG O2 Saturation ABG Base Excess FiO2 Sodium Potassium Chloride Carbon Dioxide BUN Creatinine Estimated GFR BUN/Creatinine Ratio Glucose Lactate 1.0 Calcium Ferritin Total Bilirubin AST ALT Alkaline Phosphatase Lactate Dehydrogenase Total Creatine Kinase CK-MB (CK-2) CK-MB (CK-2) Rel Index Troponin I C-Reactive Protein NT-Pro-B Natriuret Pep Total Protein Albumin Globulin Albumin/Globulin Ratio Procalcitonin Urine Color Urine Appearance Urine pH Ur Specific [place] Urine Protein Urine Glucose (UA) Urine Ketones Urine Occult Blood Urine Nitrate Urine Bilirubin Urine Urobilinogen Ur Leukocyte Esterase Urine RBC Urine WBC Ur Squamous Epith Cells Urine Bacteria Urine Mucus Ur Culture Indicated? COVID-19 PCR Cancelled Negative 05/19/20 05/19/20 05/19/20 14:35 17:20 17:20 WBC RBC Hgb Hct MCV MCH MCHC RDW Plt Count Neut % (Auto) Lymph % (Auto) [place] % (Auto) Eos % (Auto) Baso % (Auto) Neut # (Auto) Lymph # (Auto) [place] # (Auto) Eos # (Auto) Baso # (Auto) ESR D-Dimer ABG pH 7.43 ABG pCO2 33.2 L ABG pO2 55 L ABG HCO3 22 ABG Total CO2 23 ABG O2 Saturation 89 L ABG Base Excess -3.0 L FiO2 21 Sodium Potassium Chloride Carbon Dioxide BUN Creatinine Estimated GFR BUN/Creatinine Ratio Glucose Lactate Calcium Ferritin Total Bilirubin AST ALT Alkaline Phosphatase Lactate Dehydrogenase 589 Total Creatine Kinase CK-MB (CK-2) CK-MB (CK-2) Rel Index Troponin I C-Reactive Protein NT-Pro-B Natriuret Pep Total Protein Albumin Globulin Albumin/Globulin Ratio Procalcitonin < 0.05 Urine Color Urine Appearance Urine pH Ur Specific [place] Urine Protein Urine Glucose (UA) Urine Ketones Urine Occult Blood Urine Nitrate Urine Bilirubin Urine Urobilinogen Ur Leukocyte Esterase Urine RBC Urine WBC Ur Squamous Epith Cells Urine Bacteria Urine Mucus Ur Culture Indicated? COVID-19 PCR Assessment & Plan Assessment & Plan narrative: This is an 79-year-old female was admitted to the hospital for acute exacerbation of chronic back pain with intractable pain, de bility and hypoxemia of unclear etiology. 1. Acute exacerbation of chronic degenerative disc disease with intractable pain, present on admission, active. -patient with long history of chronic back pain and degenerative disc disease previously undergoing series of 4 epidural steroid injections in 2008 for same complaint. -lumbar MRI exam finds multilevel disc desiccation and disc height loss with associated disc bulging and facet arthrosis resulting in central canal stenosis and moderate to severe bilateral neuroforaminal stenoses, all changes described are noted be similar to prior exam and not significantly progressed, also noted mild paraspinal soft tissue edema which may represent muscle strains. -pain is presently on the left and has been preserve see on the right as well, no loss of bowel or bladder control, sensory or motor function in the lower extremities. -in the ER the patient received methylprednisolone 125 mg, morphine 2 mg and morphine 4 mg as well as Valium 2 mg. -ordered cyclobenzaprine 10 mg every 8 hours. -the patient is intolerant of ibuprofen due to gastric upset, ordered Toradol 30 mg every 6 hours as needed. -ordered oxycodone 5-10 mg every 4 hours as needed. -ordered gabapentin 200 mg at bedtime as initial does to evaluate tolerance for neuropathic pain. -requested PT and OT to consult, evaluate and treat. -requested Dr. Desouza to consult, repletion Orthopedics evaluation and recommendations. 2. Acute respiratory failure with hypoxemia, present on admission, active. -unclear etiology with no prior history of COPD but chest x-ray and CT scan identify basilar scarring. Patient denies shortness of breath and does report occasional cough in the morning from postnasal drip that she treats with Claritin. -patient may be hypoventilating related to pain but more likely hypoxemia is related to receiving 2 doses of morphine as well as Valium dropping ox saturation from 92% on admission to 85%. -arterial blood gas on room air reveals hypoxemia with a pH of 7.43, pCO2 33.2, PO2 55, bicarb 22 and a base excess of -3. -D-dimer is positive at [address] is negative for PE, identifying atelectasis versus scarring in bilateral lower lobes, no ground-glass opacities or pneumonia. -elevated CRP at 6.7, ESR at 67 and ferritin at 314 with normal LDH of 589, COVID-19 screening is negative. -will monitor respiratory status as pain management improves, incentive spirometry every 2 hours while awake. 3. Hypertension, chronic, stable. -patient with history of hypertension previously on medication which the patient stopped taking due to side effects. -blood pressure upon arrival to the ER was 184/97, following admission to the floor the blood pressure is 150/81. -elevated blood pressure likely related to pain, will track blood pressures and treat as needed. 4. Probable asymptomatic bacteriuria, present on admission, stable. -patient with prior UTI diagnosed on 05/07/2020 and treated with Bactrim. Urine culture from that visit revealed very scant growth of mixed Gram-positive chaparrita team not suitable for further analysis. -urinalysis today finds of specific gravity of 1.025, negative for protein, occult blood or nitrates. 1+ leukocyte esterase with 1-5 WBC's, many bacteria and 2+ mucus. -the patient is asymptomatic for urinary tract symptoms of frequency or urgency burning or hematuria and is afebrile without leukocytosis. The patient received ceftriaxone 1 g in the ER which not be continued. Isolation: None VTE prophylaxis: SCDs, heparin IV fluid: Normal saline 75 cc/hour Diet: Heart healthy low-sodium. Advanced directives: DO NOT RESUSCITATE, patient's daughter is her surrogate decision maker. The patient is admitted to the hospital due to the severity of her pain and debility. The patient is admitted as observation status with expected length of stay to be less than 2 midnights. COVID-19 COVID-19 status: Negative Result date/Date tested (Pos, Neg/Pending): 05/19/20 Time Spent With Patient Time with patient: Greater than 35 minutes Scores [facility] [place] coma scale eye opening: Spontaneous [place] coma scale verbal response: Orientated Sheree coma scale motor response: Obey commands Sheree coma scale total score: 15
[2020-05-19] MEDS: KETOROLAC 30 MG/ML VIAL IV (21:49)
[2020-05-19] MEDS: CYCLOBENZAPRINE 10 MG TABLET PO (21:49)
[2020-05-19] MEDS: GABAPENTIN 100 MG CAPSULE 200 MG PO (21:52)
--- NOTE | 2020-05-19 22:17 | PC.NURSE ---
Pt alert and oriented x 3. 96% 1L. cont pulse ox. no chest pain, sob or dizziness. no cough. LS: clear. voiding without difficulty. back pain 5/10 medicated with toradol and gabapentin. patient refused scds. oriented pt to the room. call light in reach. bed alarm active.
[2020-05-19] MEDS: SODIUM CHLORIDE 0.9% 1,000 ML 75 ML IV (23:57)
[2020-05-20 04:45] VITALS: BP 140/57; PULSE 67; RESP 18; TEMP 36.6; O2SAT 97
[2020-05-20 05:08] LABS: Add Manual Diff / Slide Review NO; Basophils Absolute Auto 0 /uL (0-100); Basophils Percent Auto 0.1 % (0-2); Eosinophils Absolute Auto 0 /uL (0-450); Hematocrit 36.5 % (36-46); Hemoglobin 12.2 g/dL (12.0-16.0); Lymphocytes Absolute Auto 1300 /uL (1100-4500); Lymphocytes Percent Auto 14.5 % (25-40); Mean Corpuscular HGB Conc 33.5 % (30-36); Mean Corpuscular Hemoglobin 33.7 PG (26-34); Mean Corpuscular Volume 100.5 fL (80-100); Monocytes Absolute Auto 1100 /uL (0-900); Monocytes Percent Auto 12.2 % (3-14); Neutrophils Absolute Auto 6700 /uL (1500-7000); Neutrophils Percent Auto 73.2 % (50-75); Platelet Count 192 X10^3/uL (150-400); Red Blood Cell Count 3.63 X10^6/uL (4.0-5.2); Red Cell Distribution Width 12.9 % (11.6-14.8); White Blood Cell Count 9.1 X10^3/uL (4.5-11.0)
[2020-05-20 05:14] LABS: BUN Creatinine Ratio 40.3 (6-22); Blood Urea Nitrogen 27 mg/dL (7-17); Calcium 8.8 mg/dL (8.4-10.2); Carbon Dioxide 24 mmol/L (22-32); Chloride 109 mmol/L (98-107); Estimated Glomerular Filt Rate > 60.0 mL/min (>60); Glucose 153 mg/dL (80-110); HEMOLYSIS < 15 (0-50); Sodium 138 mmol/L (137-145)
[2020-05-20 05:23] LABS: Magnesium 2.3 mg/dL (1.6-2.3)
[2020-05-20] MEDS: KETOROLAC 30 MG/ML VIAL IV (05:46)
[2020-05-20 07:36] VITALS: O2SAT 97; O2SAT 98
[2020-05-20 08:00] VITALS: BP 176/59; PULSE 61; RESP 17; TEMP 36.4; O2SAT 97
[2020-05-20] MEDS: GABAPENTIN 100 MG CAPSULE 200 MG PO (09:44)
[2020-05-20] MEDS: CYCLOBENZAPRINE 10 MG TABLET PO (09:45)
[2020-05-20 10:53] LABS: C-Reactive Protein Quant 6.3 mg/dL (<1.0)
[2020-05-20 11:06] LABS: Hemoglobin A1C% w Est Avg Glu 5.7 % (4.0-6.0)
[2020-05-20 11:12] LABS: Procalcitonin < 0.05 ng/mL (<0.5)
[2020-05-20 11:13] LABS: Erythrocyte Sedimentation Rate 52 MM/HR (0-20)
[2020-05-20 12:00] VITALS: BP 155/57; PULSE 66; RESP 18; TEMP 36.5; O2SAT 97
--- NOTE | 2020-05-20 12:10 | PM.CN ---
History of Present Illness Consult details Date Patient Seen: 05/20/20 Time Patient Seen: 12:04 Chief complaint: Back pain worsening, poss kidney stones, UTI Reason for consult: Severe low back pain Requesting provider: Lauryn Ellis Narrative: This is an 79-year-old female who notes that she has had severe low back pain to the extent that she had difficulty getting out of bed yesterday and she had to call 911. She came to the emergency room where she was evaluated by the emergency room physician and an MRI scan was done. She notes her back pain is significantly better than it was yesterday. She has had some significant pain when she goes to get in and out of bed and up and down from a chair but is better stat today and since she has been up with physical therapy. She has had problems with intermittent UTIs and did present in the past with a urinary tract infection which resulted in severe low back pain. She does not note any recent significant urological symptoms. She was treated with oral antibiotics Bactrim for UTI. She has had previous lumbar epidural cortisone injections a total of 3 which sound like they were likely trans laminar and a 4th 1 chief was more of a lateral injection which resulted in 100% pain relief. These injections were done in [place] approximately 10 years ago. Meds Home Medications and Allergies Home Medications Medication Instructions Recorded Confirmed Type cyclobenzaprine 10 mg PO TID PRN #15 tab 05/14/20 05/19/20 Rx oxycodone-acetaminophen [Percocet] 1 tab PO Q4-6H PRN #12 tab 05/14/20 05/19/20 Rx Allergies Allergy/AdvReac Type Severity Reaction Status Date / Time No Known Drug Allergies Allergy Verified 05/19/20 08:53 Review of Systems Review of Systems Narrative: No recent change in her bowel or bladder, no significant lower extremity numbness, denies recent nocturia frequency or burning, no significant abdominal pain. She does have intermittent symptoms which radiate into the left greater than right lower extremity, no recent respiratory infections, denies chest pain, abdominal pain or shortness of breath Exam Vital Signs (past 8 hours): - 05/20/20 04:45 05/20/20 07:36 05/20/20 08:00 Temperature 97.9 F 97.5 F L Pulse Rate 67 61 Respiratory Rate 18 17 Blood Pressure 140/57 L 176/59 H Pulse Oximetry 97 97 97 Oxygen Delivery Method Room Air Oxygen Flow Rate 0 Narrative Exam Narrative: She is resting comfortably in a chair, HEENT is benign lungs are clear cor regular rate and rhythm abdomen soft and benign, low back shows focal tenderness to palpation along the paraspinous muscles which is in the upper lumbar spine at about the L2-3 level. Straight-leg raise is negative bilaterally, full range of motion bilateral hips, sensation intact in bilateral lower extremities and she is able to fire toe flexors and extensors. Objective Labs Result Diagrams: 05/20/20 04:50 05/20/20 04:50 Labs: Laboratory Results - last 24 hr 05/19/20 05/19/20 05/19/20 09:19 12:17 12:25 WBC RBC Hgb Hct MCV MCH MCHC RDW Plt Count Neut % (Auto) Lymph % (Auto) [place] % (Auto) Eos % (Auto) Baso % (Auto) Neut # (Auto) Lymph # (Auto) [place] # (Auto) Eos # (Auto) Baso # (Auto) ESR ABG pH ABG pCO2 ABG pO2 ABG HCO3 ABG Total CO2 ABG O2 Saturation ABG Base Excess FiO2 Sodium Potassium Chloride Carbon Dioxide BUN Creatinine Estimated GFR BUN/Creatinine Ratio Glucose Hemoglobin A1c Lactate 1.0 Calcium Magnesium Ferritin 314 H Lactate Dehydrogenase C-Reactive Protein Procalcitonin COVID-19 PCR Cancelled 05/19/20 05/19/20 05/19/20 12:25 14:35 17:20 WBC RBC Hgb Hct MCV MCH MCHC RDW Plt Count Neut % (Auto) Lymph % (Auto) [place] % (Auto) Eos % (Auto) Baso % (Auto) Neut # (Auto) Lymph # (Auto) [place] # (Auto) Eos # (Auto) Baso # (Auto) ESR ABG pH 7.43 ABG pCO2 33.2 L ABG pO2 55 L ABG HCO3 22 ABG Total CO2 23 ABG O2 Saturation 89 L ABG Base Excess -3.0 L FiO2 21 Sodium Potassium Chloride Carbon Dioxide BUN Creatinine Estimated GFR BUN/Creatinine Ratio Glucose Hemoglobin A1c Lactate Calcium Magnesium Ferritin Lactate Dehydrogenase C-Reactive Protein Procalcitonin < 0.05 COVID-19 PCR Negative 05/19/20 05/20/20 05/20/20 17:20 04:50 04:50 WBC 9.1 RBC 3.63 L Hgb 12.2 Hct 36.5 MCV 100.5 H MCH 33.7 MCHC 33.5 RDW 12.9 Plt Count 192 Neut % (Auto) 73.2 Lymph % (Auto) 14.5 L [place] % (Auto) 12.2 Eos % (Auto) 0.0 L Baso % (Auto) 0.1 Neut # (Auto) 6700 Lymph # (Auto) 1300 [place] # (Auto) 1100 H Eos # (Auto) 0 Baso # (Auto) 0 ESR ABG pH ABG pCO2 ABG pO2 ABG HCO3 ABG Total CO2 ABG O2 Saturation ABG Base Excess FiO2 Sodium 138 Potassium 4.0 Chloride 109 H Carbon Dioxide 24 BUN 27 H Creatinine 0.67 Estimated GFR > 60.0 BUN/Creatinine Ratio 40.3 H Glucose 153 H Hemoglobin A1c Lactate Calcium 8.8 Magnesium Ferritin Lactate Dehydrogenase 589 C-Reactive Protein Procalcitonin COVID-19 PCR 05/20/20 05/20/20 05/20/20 04:50 04:50 04:50 WBC RBC Hgb Hct MCV MCH MCHC RDW Plt Count Neut % (Auto) Lymph % (Auto) [place] % (Auto) Eos % (Auto) Baso % (Auto) Neut # (Auto) Lymph # (Auto) [place] # (Auto) Eos # (Auto) Baso # (Auto) ESR 52 H D ABG pH ABG pCO2 ABG pO2 ABG HCO3 ABG Total CO2 ABG O2 Saturation ABG Base Excess FiO2 Sodium Potassium Chloride Carbon Dioxide BUN Creatinine Estimated GFR BUN/Creatinine Ratio Glucose Hemoglobin A1c Lactate Calcium Magnesium 2.3 Ferritin Lactate Dehydrogenase C-Reactive Protein Procalcitonin < 0.05 COVID-19 PCR 05/20/20 05/20/20 04:50 04:50 WBC RBC Hgb Hct MCV MCH MCHC RDW Plt Count Neut % (Auto) Lymph % (Auto) [place] % (Auto) Eos % (Auto) Baso % (Auto) Neut # (Auto) Lymph # (Auto) [place] # (Auto) Eos # (Auto) Baso # (Auto) ESR ABG pH ABG pCO2 ABG pO2 ABG HCO3 ABG Total CO2 ABG O2 Saturation ABG Base Excess FiO2 Sodium Potassium Chloride Carbon Dioxide BUN Creatinine Estimated GFR BUN/Creatinine Ratio Glucose Hemoglobin A1c 5.7 Lactate Calcium Magnesium Ferritin Lactate Dehydrogenase C-Reactive Protein 6.3 H Procalcitonin COVID-19 PCR Lumbar MRI scan shows multiple level degenerative disc disease with evidence of some bony edema at the L2-3 level and spinal stenosis with neural foraminal narrowing greater than central stenosis at L2-3. Plain lumbar spine x-rays show multiple level degenerative disc disease no significant spondylolisthesis or scoliosis Assessment & Plan Assessment & Plan narrative: Impression is acute low back pain with multiple level degenerative disc disease and spinal stenosis. She has gotten significantly better with her admission to the medicine service and conservative treatment. She has been mobilized with physical therapy. I think is that she looks reasonable for discharge home. I told her that she can follow up in our clinic with 1 of our private chef either Dr. Lassiter or Dr. Royal hopefully sometime next week. Her sedimentation rate and C reactive protein are both elevated although they do seem to be improving, her white blood cell count is normal and her MRI scan shows bony edema but is really not consistent with an acute infection. She has not had any fevers chills her systemic symptoms.
--- NOTE | 2020-05-20 12:23 | CM.DANOTE ---
DCP assessment: EMR reviewed: Patient is a 79 yr old female who was admitted under OBS for Intractable pain in her lower back. Patients PCP is Dr Anderson. CM/RN met with patient at the bedside and explained CM role. Patient was alert and oriented x3 at time of CM visit. Patient currently lives in two story home but only needs to access the main level at this time. Patients daughter will be here to assist patient for the next couple of days after D/C. Patient states she is Independent will all ADL's and drives at [place] line. patient is not home bound but would like PT services. CM/RN spoke with Dr. warren and she plans on ordering OP PT for the patient at D/C I: Medicare and AARP P: D/C home when medically stable. No identified D/C planning needs noted at this time. CM department will follow patient until D/C to assist with any needs that may arise. Rosamaria Desouza RN Discharge Planning/Care Management CM Discharge Assessment Start: 05/20/20 12:22 Freq: Status: Active Protocol: Document 05/20/20 12:22 HS (Rec: 05/20/20 12:23 [id number]) Discharge Planning Assessment Assigned Veterinary Virologist Rosamaria Desouza RN DPOA/Assigned Designee Name Kami Mann Contact Information [phone] Advance Directives? Yes History Provided By Patient Has Patient been admitted in last 30 No days? Prior Living Arrangements House Household Members none Type of transporation used prior to Drives own vehicle admit Independent with ADL's Yes Is patient alert and oriented? Yes Caregiver for Another No DME Already Rented / Owned FWW / Walker,Cane Patient/Family Preference OP PT Therapy Barriers to Discharge No Discharge Plan Home Transportation Arrangement paitents daughter Kami will be driving patient home. Referrals Initiated None needed Whiteboard Updated in Patient Room with Yes name and ext. # of Veterinary Virologist Review Status In Process Next Review Type Continued Stay Review
--- NOTE | 2020-05-20 12:23 | PT.IPTN ---
Physical Therapy Treatment Note M2 PT-IP Current Condition Start: 05/19/20 17:54 Freq: NEEDED Status: Active Protocol: Document 05/19/20 16:00 AB (Rec: 05/19/20 18:12 AB [id number]) Physical Therapy Current Condition Current Condition Evaluation Date 05/19/20 Treatment Diagnosis chronic back pain; difficulty in walking Onset Date 05/19/20 Precautions Other Precautions O2 sat; droplet precautions M3 PT-IP Subjective Start: 05/19/20 17:54 Freq: NEEDED Status: Active Protocol: Document 05/20/20 11:15 LJ (Rec: 05/20/20 12:23 LJ [id number]) Subjective Physical Therapy Visit Type Type Treatment Note Visit Start Time 11:15 Visit Stop Time 11:44 Total Visit Minutes 29 Notes pt in bed willing to work with PT. Friend in room also. Number of LOGISTICS SUPPLY OFFICER Visits 1 M4 PT-IP Mobility and Gait Start: 05/19/20 17:54 Freq: NEEDED Status: Active Protocol: Document 05/20/20 11:15 LJ (Rec: 05/20/20 12:23 LJ [id number]) PT-Bed Mobility Assessment Supine to Sit Supine to Sit Standby Assistance,Head of Bed Elevated Sit to Supine Sit to Supine Standby Assistance,Head of Bed Elevated PT-Transfer Assessment Sit to and From Stand Sit to and from Stand Standby Assistance,1 Person Assistance,Use of Upper Extremities Equipment Transfer Assistive Device Gait Belt,Front Wheeled Walker Orthotic/Prosthetic Devices or Brace: No Comments Mobility Comments Pt in bed upon arrival. Sup<> sit SBA. Pt able to don socks in bed prior to standing. She is SBA using UEs to push off bed and lower herself into bed . After ambulation in hallway pt returned to bed independently Gait Assessment Gait Gait Assistance Required: Standby Assistance Distance (Feet) 200 Able to Maintain Weight Bearing Status Yes During Gait Assistive Devices Assistive Device Gait Belt,Front Wheeled Walker Orthotic/Prosthetic Devices or Brace: No Gait Deviations General Gait Pattern Decreased Stride Length, Decreased Feet Clearance Factors Limiting Gait Function Factors Limiting Gait Function Decreased Activity Tolerance, Decreased Strength,Limited Range of Motion Comments Gait Comments Pt ambulated in hallway ~200' SBA using FWW. Posture was good and pt did not complain of increased pain. Gait speed is somewhat slower than normal but mechanics are w/in normal . Returned to room and got back into bed independently. Left room with DC nurse in room with pt M5 PT-IP Objective Assessments Start: 05/19/20 17:54 Freq: NEEDED Status: Active Protocol: Document 05/19/20 16:00 AB (Rec: 05/19/20 18:12 AB [id number]) Orientation Orientation/Cognition Level of Alertness Alert Orientation Name,Place,Situation Language Function Ability Hard of Hearing Safety Awareness Decreased Safety Awareness Gross Range of Motion Lower Extremity ROM Assessment Within Functional Limits Strength Lower Extremity Strength Assessment Bilaterally Impaired Hip 3+/5 Knee 4-/5 Coordination Assessment Gross Coordination Gross Coordination WNL Muscle Tone Muscle Tone WNL Yes M6 PT-IP Treatment Start: 05/19/20 17:54 Freq: NEEDED Status: Active Protocol: Document 05/20/20 11:15 LJ (Rec: 05/20/20 12:23 LJ [id number]) Physical Therapy Treatment Exercises Exercises Gluteal Sets,Quad Sets Education Education Provided Safety M7 PT-IP Assessment and Plan Start: 05/19/20 17:54 Freq: NEEDED Status: Active Protocol: Document 05/20/20 11:15 LJ (Rec: 05/20/20 12:23 LJ [id number]) PT Summary Assessment and Plan Potential Rehabilitation Potential Good Status of Condition at Evaluation Evolving Summary Impairments Pain,ROM,Strength Assessment Summary Pt moving much better with pain controlled and back to near normal function according to pt. No respiratory distress, pain, or fatigue during ambulation. Pt has met goals and is safe to DC home with assistance from friend who observed LOGISTICS SUPPLY OFFICER working with pt and received education for safety at home. Goals Bed Mobility Goal Independent Transfer Goal Independent,Front Wheeled Walker,Four Wheeled Walker Gait Goal Independent,Four Wheel Walker Gait Distance 200 Days to Meet Goals 5 Frequency of Treatment Frequency Of Treatment Once a Day Treatment Plan Physical Therapy Treatment Plan Bed Mobility Training,Transfer Training,Gait Training, Therapeutic Exercise,Balance Retraining,Discharge Planning, Neuromuscular Re-ed Recommendations To Nursing Amount of Assist Needed 1 Person Assist Discharge Recommendations PT Discharge Recommendations Home with Assistance,Home Health Transportation Needs at Discharge Private Vehicle
--- NOTE | 2020-05-20 13:07 | P.DS_ITS ---
History of Present Illness History of Present Illness Date Patient Seen: 05/19/20 Chief complaint: Back pain worsening, poss kidney stones, UTI Narrative: Written by Rico KERR: Ms. Juli Munoz is an 79-year-old female with a history significant for chronic back pain with degenerative disc disease, hypertension and prior kidney infection who presents to the ER for worsening back pain with radiation to the left leg. The patient was seen on 05/07/2020 when she presented complaints of chronic back pain and states she ranged her back the day before. Patient also presented with right CVA tenderness that time and had a CT exam that was negative for pyelonephritis and was discharged home on Bactrim DS. Her urine culture revealed scant polymicrobial growth and was not cultured. She returned on 05/14/2020 with low back pain radiating to the right leg. The patient was treated conservatively with no acute findings with evaluation by physical therapy in found be safe for discharge to home. Patient returned again today with worsening back pain stating she was unable to walk and obtained a walker from her friend but has been minimally ambulatory at home and has been spending most her time in bed. Patient has long history of lumbar back disease and in 2 009 required for epidural steroid injections manage her condition. She has never had spinal surgery nor evaluation by spinal surgeon. The patient describes focal pain in the lumbar spine associated with twisting motions that is a 2/10 at rest and increases to sharp severe pain with movement. She describes pain radiating into the left buttock and into the left leg but not producing numbness or tingling. She has had no complaints of loss of bowel or bladder control. The patient does endorse a history of hypertension that she states is sometimes high and sometimes low had previously been on medication but is no longer taking due to side effects. She denies recent illness or COVID-19 exposures. She has had no fevers or chills or complaints of diaphoresis. She denies complaints of headaches or dizziness, nasal congestion or sore throat. She reports no shortness of breath or exertional dyspnea though she is not aerobically challenged. She denies wheezing and does endorse an occasional morning cough that she relates to postnasal drip for which she will use Claritin. Denies epigastric or abdominal pain, nausea vomiting, diarrhea or constipation. She reports no urinary symptoms of urgency, frequency burning or hematuria. Upon arrival to the ER the patient has a temperature of 98.0? with heart rate of 76, blood pressure 184/97, respiratory rate of 18 saturating 92% on room air. Lumbar MRI is obtained finding loss of disc height at multiple levels with no disc protrusions or extrusions. No acute lumbar fractions, moderate to severe multilevel degenerative changes lumbar spine that her similar to the prior exam. There are multifocal areas central canal and neural foraminal stenoses which have not significantly progressed. Mild marrow edema involving the sacral all a is thought to be degenerative, mild paraspinal soft tissue edema may represent muscle strains. A CT is obtained due to sedentary nature and relative hypoxemia which is negative for PE shows mild bilateral atelectasis versus scarring, no pneumonia and a small hiatal hernia. Arterial blood gas finds a pH 7.43, pCO2 of 33.2, PO2 55, bicarb of 22 and a base excess of -3 on 21% FiO2. Twelve lead EKG is obtained finding sinus rhythm with ventricular rate of 74 with PVC, inferior Q-waves but no acute evidence of in [place] or infarct. On laboratory analysis the patient has a white count of 8.0 with normal neutrophil and lymphocyte counts with elevated monocytes at 1100. She has an elevated ESR at 67, D-dimer 3564, C reactive protein is 6.7 and procalcitonin that is negative at less than 0.05.. Lactic acid is 1.0. She also has an elevated ferritin level at 314 and LDH normal at 589. On chemistry she has normal electrolytes a BUN of 22 and creatinine 0.74 and a nonfasting glucose of 105. Liver functions are all within normal limits with an albumin of 4.1. Her total CK is 52 with a troponin is negative at less than 0.012 and a proBNP of 243. COVID-19 screening is negative. In the ER the patient received methylprednisolone 125 mg, 2 doses of morphine 2 mg and 4 mg, Valium 2 mg and 2 L of IV fluid. Dr. Desouza, orthopedics, is consulted through the emergency department. The patient is admitted to the medicine service with intractable back pain in the setting of chronic lumbar disc disease and hypoxemia. Patient's PCP is Dr. Tobin. Discharge Providers Provider Date of admission: 05/19/20 17:06 Discharge Date: 05/20/20 Primary care physician: Efrain Anderson MD Consults: 05/19/20 20:09 Consult to Discharge Planning Routine Comment: Consult to Occupational Therapy Evaluate & Treat Comment: Physician Instructions: Evaluate and treat Consult to Physical Therapy Evaluate & Treat Comment: Left Lumbar back pain with sciatica Physician Instructions: Evaluate and Treat Discharge provider: Lauryn Ellis DO Summary Hospital Course Discharge Diagnosis: 1. Acute exacerbation of chronic degenerative disc disease with lumbar paraspinal muscle strain and lumbar radiculopathy, present on admission. Acute portion resolved. 2. Acute transient hypoxemic respiratory failure, likely iatrogenic and secondary to sedative medication, not present on admission. Resolved. 3. Hypertension, chronic, present on admission. Stable. 4. Asymptomatic bacteriuria, present on admission. Stable. Hospital Course: 1. Acute exacerbation of chronic degenerative disc disease with lumbar paraspinal muscle strain and lumbar radiculopathy, present on admission. Acute portion resolved. -Patient presented with acute on chronic low lumbar back pain with radiculopathy and pain radiating down left > right leg. Patient has no cauda equinus symptoms including no loss of bowel or bladder, saddle anesthesia or sensory or motor d eficit. Patient with long history of chronic back pain and degenerative disc disease previously received epidural steroid injection x4 in 2008. -MR lumbar spine with contrast demonstrated no lumbar fractures, disc protrusions or extrusions. Mild marrow edema involving the sacral ala probably is degenerative and bone contusions are difficult to exclude, mild paraspinal soft tissue edema likely visitor services representative of muscle strains, chronic moderate to severe multilevel degenerative changes of the lumbar spine are similar to previous exam and multifocal areas of central canal or neural foraminal sakshi nosis, which have not significantly progressed. -Inflammatory markers highly elevated with: ESR 52 (down from 67 and corrected for age anything above 40 abnormal) and CRP 6.3 (down from 6.7 and corrected for age anything above 2.23 is abnormal). Patient does not have any symptoms or systemic signs of infection including: Dental infection, skin rash, UTI, pneumonia or lung infection,etc. May consider having patient evaluated by rheumatology per PCP. -Received methylprednisolone 125 mg IV x1, morphine 4 mg IV x1 and 2 mg IV x1 and Valium 2 mg IV x1 with subsequent transient hypoxemia that resolved as below. -Continued pain control with: acetaminophen 650 mg every 6 hours as needed for mild pain, cyclobenzaprine 10 mg every 8 hours, gabapentin 300 mg 3 times daily for neuropathic pain, Toradol 30 mg every 6 hours as needed for [id number] pain, and oxycodone 5-10 mg every 4 hours as needed for moderate to severe pain. Recommended trial of Aleve which is longer acting with food to help protect GI tract and/or PPI or H2 antagonist for GI prophylaxis per PCP. Patient reports she feels significantly improved after IV steroid and gabapentin. -Continued physical therapy evaluation treatment. Physical therapy recommended home with outpatient physical therapy and forward wheeled walker at all times. -Consulted orthopedic surgery, Dr. Desouza, who will contact spinal orthopedic surgeons to perform GRAHAM as an outpatient. 2. Acute transient hypoxemic respiratory failure, likely iatrogenic and secondary to sedative medication, not present on admission. Resolved. -Patient received 4 mg IV morphine and to mg IV diazepam in ED with resultant hypoxemia, thereafter, that later resolved without treatment. -Concern for PE due to decreased mobilization and hypoxemia and highly elevated D-dimer of 3564, therefore, CTA chest performed and ruled out PE. Noted, bibasilar atelectasis versus scarring on CT and chest x-ray. Patient with prior history of smoking but no formal diagnosis of COPD. Patient denies any upper or lower respiratory tract symptoms other than occasional dry cough in the morning due to postnasal drip that she treats with loratadine. -ABG demonstrated mild hypoxemia with: pH 7.43, pCO2 33.2, PO2 55, HCO3 22, SpO2 89% on FiO2 0.21. -Continued to monitor pulse oximetry throughout hospitalization and treat hypoxemia with supplemental oxygen as necessary to maintain oxygen saturation 88-92%. Patient transiently received oxygen after sedatives. Patient off oxygen satting 97% on room air. 3. Hypertension, chronic, present on admission. Stable. -Patient with history of hypertension previously on medication which the patient stopped taking due to side effects. BP elevated initially 184/97 in ED likely due to pain. -Blood pressure upon arrival to the ER was 184/97, following admission to the floor the blood pressure is 150/81. SBP 130s to 150s throughout hospitalization which is acceptable given age. Continue to monitor blood pressure as an outpatient and consider treating if BP consistently elevated per PCP. 4. Asymptomatic bacteriuria, present on admission. Stable. -Urinalysis equivocal and urine culture preliminarily has no growth. Patient denies any symptoms. Patient previously had kidney infection 10+ years ago which presented as back pain and patient's concern for UTI. Patient noted to be seen on 06/08 which was in 2018 not recently and has not undergone an antibiotic course -Received ceftriaxone 1 g IV x1 in ED. No further indication for antibiotics. Exam Vital Signs (past 8 hours): - 05/20/20 07:36 05/20/20 08:00 05/20/20 12:00 Temperature 97.5 F L 97.7 F Pulse Rate 61 66 Respiratory Rate 17 18 Blood Pressure 176/59 H 155/57 H Pulse Oximetry 97 97 97 Oxygen Delivery Method Room Air Oxygen Flow Rate 0 Narrative Exam Narrative: General: Elderly female sitting in bed and in no acute distress, well- developed, well-nourished, appropriately interactive. HEENT: Normocephalic, atraumatic. External ears without defect. Pupils equal, round, and reactive to light and accommodation. Anicteric sclerae, moist conjunctivae, and no lid lag. Oropharynx free of erythema and cobble stoning with moist mucosa. Neck: Supple with full range of motion. No jugular venous distension. No bruits. No lymphadenopathy or thyromegaly. Cardiovascular: Regular rate and rhythm without murmurs, rubs, or gallops appreciated Pulmonary: Clear to auscultation bilaterally without crackles, wheezes, or rhonchi. Normal respiratory effort with no use of accessory muscles. Abdomen: Bowel tones present. Soft, nontender, nondistended. No hepatosplenomegaly or masses appreciated. Back: Mild tenderness to palpation of paraspinal musculature of lumbar spine. Negative straight leg raise test bilaterally. No sensation or motor deficits. No saddle anesthesia. Extremities: No clubbing, cyanosis, or edema. Skin: Normal temperature, turgor, and texture; no rash, ulcers, or subcutaneous nodules appreciated. Neurological: Cranial nerves grossly intact. Psychiatric: Normal mood and affect. Alert and oriented to person, place, and time. Objective Labs Result Diagrams: 05/20/20 04:50 05/20/20 04:50 Labs: Laboratory Results - last 24 hr 05/19/20 05/19/20 05/19/20 12:25 12:25 14:35 WBC RBC Hgb Hct MCV MCH MCHC RDW Plt Count Neut % (Auto) Lymph % (Auto) [place] % (Auto) Eos % (Auto) Baso % (Auto) Neut # (Auto) Lymph # (Auto) [place] # (Auto) Eos # (Auto) Baso # (Auto) ESR ABG pH 7.43 ABG pCO2 33.2 L ABG pO2 55 L ABG HCO3 22 ABG Total CO2 23 ABG O2 Saturation 89 L ABG Base Excess -3.0 L FiO2 21 Sodium Potassium Chloride Carbon Dioxide BUN Creatinine Estimated GFR BUN/Creatinine Ratio Glucose Hemoglobin A1c Calcium Magnesium Lactate Dehydrogenase C-Reactive Protein Procalcitonin COVID-19 PCR Cancelled Negative 05/19/20 05/19/20 05/20/20 17:20 17:20 04:50 WBC 9.1 RBC 3.63 L Hgb 12.2 Hct 36.5 MCV 100.5 H MCH 33.7 MCHC 33.5 RDW 12.9 Plt Count 192 Neut % (Auto) 73.2 Lymph % (Auto) 14.5 L [place] % (Auto) 12.2 Eos % (Auto) 0.0 L Baso % (Auto) 0.1 Neut # (Auto) 6700 Lymph # (Auto) 1300 [place] # (Auto) 1100 H Eos # (Auto) 0 Baso # (Auto) 0 ESR ABG pH ABG pCO2 ABG pO2 ABG HCO3 ABG Total CO2 ABG O2 Saturation ABG Base Excess FiO2 Sodium Potassium Chloride Carbon Dioxide BUN Creatinine Estimated GFR BUN/Creatinine Ratio Glucose Hemoglobin A1c Calcium Magnesium Lactate Dehydrogenase 589 C-Reactive Protein Procalcitonin < 0.05 COVID-19 PCR 05/20/20 05/20/20 05/20/20 04:50 04:50 04:50 WBC RBC Hgb Hct MCV MCH MCHC RDW Plt Count Neut % (Auto) Lymph % (Auto) [place] % (Auto) Eos % (Auto) Baso % (Auto) Neut # (Auto) Lymph # (Auto) [place] # (Auto) Eos # (Auto) Baso # (Auto) ESR 52 H D ABG pH ABG pCO2 ABG pO2 ABG HCO3 ABG Total CO2 ABG O2 Saturation ABG Base Excess FiO2 Sodium 138 Potassium 4.0 Chloride 109 H Carbon Dioxide 24 BUN 27 H Creatinine 0.67 Estimated GFR > 60.0 BUN/Creatinine Ratio 40.3 H Glucose 153 H Hemoglobin A1c Calcium 8.8 Magnesium 2.3 Lactate Dehydrogenase C-Reactive Protein Procalcitonin COVID-19 PCR 05/20/20 05/20/20 05/20/20 04:50 04:50 04:50 WBC RBC Hgb Hct MCV MCH MCHC RDW Plt Count Neut % (Auto) Lymph % (Auto) [place] % (Auto) Eos % (Auto) Baso % (Auto) Neut # (Auto) Lymph # (Auto) [place] # (Auto) Eos # (Auto) Baso # (Auto) ESR ABG pH ABG pCO2 ABG pO2 ABG HCO3 ABG Total CO2 ABG O2 Saturation ABG Base Excess FiO2 Sodium Potassium Chloride Carbon Dioxide BUN Creatinine Estimated GFR BUN/Creatinine Ratio Glucose Hemoglobin A1c 5.7 Calcium Magnesium Lactate Dehydrogenase C-Reactive Protein 6.3 H Procalcitonin < 0.05 COVID-19 PCR Discharge Plan Discharge Plan Patient Disposition: Home Discharge comment: You are being discharged home. You had an acute flare of your low lumbar back degenerative joint disease and muscle strain of the low back likely from a twisting or falling injury. You received a IV steroid which helped to reduce inflammation of your low back. Dr. Desouza of orthopedic surgery is recommending an epidural steroid injection and will have one of her partners perform this and you should receive a phone call from their office. If you do not please call their office at the number below. If your back pain comes back and is severe you may discuss a short steroid burst with your primary care provider. You have been prescribed gabapentin 3 times daily to help reduce nerve related pain. Gabapentin may be sedating so please do not drive or use alcohol while on this medication. You may take Aleve (naproxen) 2 tabs in the morning which last 12 hours to reduce inflammation and improve pain. Please take Aleve with food and drink plenty of water. You may continue cyclobenzaprine 10 mg 3 times daily as needed for muscle spasm or strain and Percocet ONLY for severe uncontrolled back pain. Both of these medications may also be sedating so do not drive on these medications or use alcohol. Narcotics are high risk medication and increased risk of all cause mortality by 4 times from any cause. You may also use alternating ice (no more than 20 minutes at a time) and heat for symptomatic relief. You have no evidence of bladder infection on urinalysis and urine culture has no growth. You received a dose of IV antibiotic while we were waiting for these results. If you you develop urinary symptoms including urinary frequency, urgency, hesitancy or burning/discomfort more than usual you may have a repeat urinalysis performed at your primary care provider's office. You may also have interstitial cystitis which is a condition that mimics urinary tract infection and you may discuss this with your primary care provider or a urologist. Your slightly low oxygen level was likely induced by medications (morphine and valium) or pain or both. Your oxygenation is normal today. You are negative for COVID-19. The CT scan of your lung shows scarring at the bases of your lungs which may be from and a previous infection or smoking or normal due to age. Please use your walker at all times. Please follow-up with your primary care provider, Dr. Tobin, regarding your hospitalization and referral to physical therapy. Discharge orders & Medications Prescriptions: New docusate sodium [DOK] 100 mg Capsule 100 mg PO BID PRN (Reason: Constipation) Qty: 60 RF: 0 gabapentin 300 mg capsule 300 mg PO TID Qty: 90 RF: 0 Continued oxycodone-acetaminophen [Percocet] 5-325 mg tablet 1 tab PO Q4-6H PRN (Reason: pain) Qty: 12 RF: 0 cyclobenzaprine 10 mg tablet 10 mg PO TID PRN (Reason: muscle spasm) Qty: 15 RF: 0 Follow up/Referrals: Mitra Tobin MD [Physician] - 1 Week Fabiola Desouza MD [Physician] - (Please call their office to schedule an appointment with the spinal orthopedic surgeon to perform and epidural steroid injection.) Diet/Activity/Treatments Diet: Low-fat, Low-sodium and Low-cholesterol Activity: Activity as tolerated with forward wheeled walker at all times Visit Report/Discharge Packet Instructions: DI for Low Back Pain, DI for Muscle Strain, DI for Osteoarthritis, Cyclobenzaprine, Gabapentin, Oxycodone/Acetaminophen (By mouth) Visit Report Forms: Patient Portal/API, Stroke Signs & Symptoms Discharge Data Primary Care Provider: Efrain Anderson Attending Provider: Lauryn Ellis Admit Date/Time: 05/19/20 17:06 Discharges patient from system. Discharge Date/Time: 05/20/20 14:40
== END 2020-05-20 14:40 | disposition home or self-care (01) ==
LOC: ED 16:12 → AC 17:07
PROVIDERS: Nurse Practitioner Adult Health; Admitting Provider Internal Medicine; Emergency Provider Emergency Medicine; PCP Family Medicine; Referring Provider Internal Medicine; Visit Provider Internal Medicine
DX: M51.16 Intervertebral disc disorders with radiculopathy, lumbar region (principal); M54.5 Low back pain; I25.2 Old myocardial infarction; I50.9 Heart failure, unspecified; J96.01 Acute respiratory failure with hypoxia; R82.71 Bacteriuria; Z11.59 Encounter for screening for other viral diseases
CPT/HCPCS: 36415; 36600; 71045; 71275; 72148; 80048; 80053; 81001; 82550; 82728; 82805; 83036; 83605; 83615; 83735; 83880; 84145; 84484; 85025; 85379; 85651; 86140; 87040; 87086; 87635; 93005; 94640; 94760; 94762; 96361; 96365; 96375; 96376; 97116; 97162; 99285; G0378; J1885; J2270; J2930; J3360; Q9967

== ENCOUNTER → 2021-06-24 13:24 | Outpatient (CLI) | payer MEDICARE, SELFPAY ==
[2020-05-19 19:41] VITALS: BMI 25.2
--- NOTE | 2021-06-24 13:26 | DI.RAD.S_ITS ---
PROCEDURE: XR LUMBAR SPINE MIN 4V INDICATIONS: BACK PAIN TECHNIQUE: 5 views of the lumbar spine were acquired, including bilateral oblique views. COMPARISON: [facility], , XR LUMBAR SPINE 2-3V, 05/14/2020, 10:09. FINDINGS: Bones: 5 nonrib-bearing vertebrae are present. There is levocurvature of the lumbar spine centered at L3. Stable appearance of moderate-severe multilevel lumbar spondylosis with near complete disc space loss at L2-3 as well as moderate disc space loss at L3-4. There is advanced facet arthropathy of the mid and lower lumbar spine. Stable minimal grade 1 anterolisthesis of L5 on S1. Multilevel degenerative endplate changes with endplate osteophyte formation. No acute vertebral body compression fractures. No suspicious bony lesions. Soft tissues: Overlying bowel gas pattern is normal. No suspicious soft tissue calcifications. Oblique images: No pars defects. IMPRESSION: Stable appearance of moderate-severe multilevel lumbar spondylosis most severe at L2-3 and L3-4. Advanced multilevel facet arthropathy of the mid and lower lumbar spine. Dictated by: Tom Galloway M.D. on 06/24/2021 at 17:22 Approved by: Tom Galloway M.D. on 06/24/2021 at 17:24
== END ==
PROVIDERS: PCP Student in an Organized Health Care Education/Training Program; Referring Provider Physical Medicine & Rehabilitation; Visit Provider Physical Medicine & Rehabilitation
DX: M54.32 Sciatica, left side (principal); M54.9 Dorsalgia, unspecified; M47.816 Spondylosis without myelopathy or radiculopathy, lumbar region
CPT/HCPCS: 72110

== ENCOUNTER → 2021-08-19 11:19 | Outpatient (CLI) | payer MEDICARE, SELFPAY ==
[2020-05-19 19:41] VITALS: BMI 25.2
[2021-08-19 12:04] LABS: COVID19 -Nasal RAPID Negative (Negative)
== END ==
PROVIDERS: PCP Student in an Organized Health Care Education/Training Program; Visit Provider Physical Medicine & Rehabilitation
DX: Z20.822 Contact with and (suspected) exposure to COVID-19 (principal)
CPT/HCPCS: 87635; C9803

== ENCOUNTER 2021-08-20 08:09 | Outpatient (CLI) | payer MEDICARE, SELFPAY ==
[2020-05-19 19:41] VITALS: BMI 25.2
[2021-08-20] VITALS (8 sets, daily range): BP systolic 167–217; BP diastolic 75–124; PULSE 56–67; RESP 10–19; TEMP 36.4; O2SAT 93–99
--- NOTE | 2021-08-20 08:15 | DI.RAD.S_ITS ---
PROCEDURE: PAIN L/SI FACET INJ/BLK 1STL INDICATIONS: SPONDYLOSIS COMPARISON: [facility], CR, XR LUMBAR SPINE MIN 4V, 06/24/2021, 13:32. FINDINGS: Fluoroscopic spot filming was performed to verify placement of spinal needles at the left L3-L4, L4-L5, and L5-S1 level(s), as labeled on the films. Appropriate location(s) of the needle tip(s) was confirmed by injection of iodinated contrast. IMPRESSION: Intraprocedural examination within normal limits. Dictated by: Hossein Abernathy M.D. on 08/20/2021 at 8:43 Approved by: Hossein Abernathy M.D. on 08/20/2021 at 8:44
[2021-08-20] MEDS: MIDAZOLAM 5 MG/5 ML VIAL IV (09:10)
[2021-08-20] MEDS: fentaNYL 100 MCG/2 ML INJ 50 MCG IV (09:10)
[2021-08-20] MEDS: BUPIVACAINE 0.5% (PF) VIAL 5 ML INJ (09:14)
[2021-08-20] MEDS: IOPAMIDOL 15 ML VIAL 3 ML INJ (09:14)
[2021-08-20] MEDS: BETAMETHASONE 30 MG/5 ML MDV 12 MG INJ (09:14)
[2021-08-20] MEDS: LIDOCAINE 1% 20 ML 10 ML INJ (09:15)
--- NOTE | 2021-08-20 09:22 | P.PCN_ITS ---
Date/Time/Diagnoses Date of procedure: 08/20/21 Time of procedure: 09:23 Pre-procedure diagnosis: 1. FACET ARTHROPATHY, 2. AXIAL LBP, 3. MULTILEVEL DDD Post-procedure diagnosis: same Procedure Notes Procedure: 1. FLUOROSCOPICALLY GUIDED CONTRAST CONTROLLED FACET JOINT INJECTIONS LEFT L3/4, L4/5, L5/S1 Indications: Juli is referred by Dr. Tobin for treatment of Axial LBP Physician: Adelfo Sepulveda Total Fluoroscopy time (seconds): 5 Total sedation minutes: 10 Complications: none Procedure in detail & Post-procedure care: FINDINGS Multilevel Facet Arthropathy with Clinically significant axial LBP DESCRIPTION OF PROCEDURE Fluoroscopically guided, contrast-controlled left L3/4, L4/5, L5/S1 facet joint injections. Following review of allergy and review of potential side effects and complications, including, but not necessarily limited to, infection, allergic reaction, local tissue breakdown, stroke, temporary or permanent nerve injury, paralysis, and possible , the patient indicated that the patient understood and agreed to proceed. An informed consent document was signed by the patient, witnessed by a nurse, and placed in the patient's chart. Additionally, other treatment options including medications, modalities, and physical therapy were reviewed with the patient. After review of previous anaesthesic history and IV conscious sedation the patient was deemed safe to proceed with today?s procedure with IV conscious sedation as ASA class II designation. Safety time-out was performed to confirm patient ID, procedure to be performed and site of procedure. IV sedation was accomplished with a combination of 2mg of Versed and 50mcg of Fentanylwas administered by the RN after DO order, titrated to patient comfort during the course of the procedure while the patient remained responsive to all verbal commands. In the prone position, following sterile prep and drape of the lumbar region, the posterior aspect of the left L3/4, L4/5, L5/S1 facet joints were identified fluoroscopically. The skin was anesthetized via a 25-gauge 1.5-inch needle with 1% lidocaine solution into the corresponding facet joints. At this point, a 22- gauge 3.5-inch spinal needle was atraumatically introduced and advanced under fluoroscopic guidance into the corresponding facet joints. Following negative aspiration, injections of approximately 0.2-cc of Isovue 200 confirmed interarticular placement without vascular uptake. Radiological data, including multiple fluoroscopic views of the lumbosacral spine, reveal a spinal needle at the left L3/4, L4/5, L5/S1 facet joints. Subsequent views show flow of contrast material both superiorly and inferiorly within the joint space without vascular or intrathecal uptake. At this point, a total of 0.5 cc including a mixture of 0.25cc Marcaine and 0.25cc betamethasone was injected without complication into each of the corresponding facet joints. The procedure tolerated the procedure well without signs or symptoms of complications prior to transfer to the recovery area continued monitoring without incident. The patient was then transferred to the recovery area where they were observed for an appropriate period of time after the injection. The patient reported a VAS score of 7 prior to the procedure and a post-procedure VAS of 0. POST OP INSTRUCTIONS The patient was provided a Pain Log to continue to record their response to the target-specific procedure prior to follow-up visit with their referring physician. Additionally, specific post-injection care instructions and a contact number to our office were provided if concerns arise regarding possible complications associated with the procedure are suspected.
== END 2021-08-20 09:45 | disposition home or self-care (01) ==
PROVIDERS: PCP Student in an Organized Health Care Education/Training Program; Referring Provider Physical Medicine & Rehabilitation; Visit Provider Physical Medicine & Rehabilitation
DX: M47.816 Spondylosis without myelopathy or radiculopathy, lumbar region (principal); M47.817 Spondylosis without myelopathy or radiculopathy, lumbosacral region; M51.36 Other intervertebral disc degeneration, lumbar region; M51.37 Other intervertebral disc degeneration, lumbosacral region; M54.5 Low back pain
CPT/HCPCS: 64493; 64494; 64495; 99152; J0702; J2250; J3010

== ENCOUNTER → 2021-09-09 10:01 | Outpatient (CLI) | payer MEDICARE, SELFPAY ==
[2020-05-19 19:41] VITALS: BMI 25.2
[2021-09-09 13:15] LABS: COVID19 -Nasal RAPID Negative (Negative)
== END ==
PROVIDERS: PCP Family Medicine; Visit Provider Physical Medicine & Rehabilitation
DX: Z20.822 Contact with and (suspected) exposure to COVID-19 (principal)
CPT/HCPCS: 87635; C9803

== ENCOUNTER 2021-09-10 14:01 | Outpatient (CLI) | payer MEDICARE, SELFPAY ==
[2020-05-19 19:41] VITALS: BMI 25.2
[2021-09-10] VITALS (7 sets, daily range): BP systolic 159–217; BP diastolic 76–97; PULSE 66–75; RESP 12–23; TEMP 36.1; O2SAT 93–98
--- NOTE | 2021-09-10 14:03 | DI.RAD.S_ITS ---
PROCEDURE: PAIN L/SI FACET INJ/BLK 1STL INDICATIONS: SPONDYLOSIS COMPARISON: [facility], , PAIN L/SI FACET INJ/BLK 1STL, 08/20/2021, 9:15. FINDINGS: Fluoroscopic spot filming was performed to verify placement of spinal needles at the mid and lower lumbar and lumbosacral levels. level(s), as labeled on the films. Appropriate location(s) of the needle tip(s) was confirmed by injection of iodinated contrast. IMPRESSION: Needle placement as above Dictated by: Fredi Adler M.D. on 09/10/2021 at 15:53 Approved by: Fredi Adler M.D. on 09/10/2021 at 16:36
[2021-09-10] MEDS: fentaNYL 100 MCG/2 ML INJ 50 MCG IV (14:55)
[2021-09-10] MEDS: MIDAZOLAM 5 MG/5 ML VIAL IV (14:55)
[2021-09-10] MEDS: BUPIVACAINE 0.5% (PF) VIAL 5 ML INJ (15:03)
[2021-09-10] MEDS: IOPAMIDOL 15 ML VIAL 3 ML INJ (15:04)
[2021-09-10] MEDS: LIDOCAINE 1% 20 ML 10 ML INJ (15:04)
--- NOTE | 2021-09-10 15:11 | P.PCN_ITS ---
Date/Time/Diagnoses Date of procedure: 09/10/21 Time of procedure: 15:11 Pre-procedure diagnosis: 1. FACET ARTHROPATHY Post-procedure diagnosis: same Procedure Notes Procedure: 1. Left L4, L5 and S1 MB BLOCKS Indications: Juli is referred by Dr. Haynes for treatment of Left Axial LBP. Physician: Adelfo Sepulveda Total Fluoroscopy time (seconds): 6 Total sedation minutes: 11 Complications: none Procedure in detail & Post-procedure care: DESCRIPTION OF PROCEDURE Fluoroscopically guided, contrast-controlled left L3, L4, L5 and S1 medial branch blocks with 0.5cc of 0.5% Marcaine. Following review of allergy and review of potential side effects and complications, including, but not necessarily limited to, infection, allergic reaction, local tissue breakdown, nerve injury, paralysis, stroke and possible , the patient indicated that the patient understood and agreed to proceed. An informed consent document was signed by the patient, witnessed by a nurse, and placed in the patient's chart. After review of previous anaesthesic history and IV conscious sedation the patient was deemed safe to proceed with today?s procedure with IV conscious sedation as ASA class II designation. Safety time-out was performed to confirm patient ID, procedure to be performed and site of procedure. IV sedation was accomplished with a combination of 3mg of Versed and 50mcg of Fentanyl was administered by the RN after DO order, titrated to patient comfort during the course of the procedure while the patient remained responsive to all verbal commands. In the prone position, following sterile prep and drape of the lumbar region, the left L3, L4, L5 and S1 anatomical location of the medial branch of the dorsal ramus was identified fluoroscopically. Subsequently an anesthetic skin wheal using 1% lidocaine solution was initiated at each of the anatomical spots. Subsequently then a 22-gauge 3.5-inch spinal needle was atraumatically introduced and advanced under fluoroscopic guidance at each of the corresponding sites at the left L3, L4, L5 and S1 MB. After negative aspiration, 0.2cc of Isovue 200 was injected, confirming placement without vascular or intrathecal uptake. Subsequently then 0.5cc of 0.5% Marcaine solution was injected at each of the corresponding sites at the left L3, L4, L5 and S1 medial branch locations. The patient tolerated the procedure well without signs or symptoms of complications. The patient tolerated the procedure well without signs or symptoms of complications prior to transfer to the recovery area continued monitoring without incident. Post-procedure, the patient was monitored initiating provocative activities to measure the amount of relief from block of the facetogenic pain. The patient reported a VAS of 7 prior to the procedure and a post-procedure VAS of 1. It has been a pleasure to assist in the diagnostic and therapeutic care of your patient. POST OP INSTRUCTIONS The patient was provided with a Pain Log to complete over the next several hours and subsequent days prior to the patient's follow up with the ordering physician. If the patient has technical specialist relief to the solution applied, then they may be a candidate for medial branch rhizotomy. The patient is aware, was provided, once again, with a Pain Log and will follow up with the referring physician for review and clinical correlation.
== END 2021-09-10 15:40 | disposition home or self-care (01) ==
LOC: RAD 14:03
PROVIDERS: PCP Family Medicine; Referring Provider Physical Medicine & Rehabilitation; Visit Provider Physical Medicine & Rehabilitation
DX: M47.816 Spondylosis without myelopathy or radiculopathy, lumbar region (principal); M47.817 Spondylosis without myelopathy or radiculopathy, lumbosacral region; M54.59 Other low back pain
CPT/HCPCS: 64493; 64494; 64495; 99152; J2250; J3010

== ENCOUNTER → 2021-09-17 09:08 | Outpatient (CLI) | payer MEDICARE, SELFPAY ==
[2020-05-19 19:41] VITALS: BMI 25.2
[2021-09-17 09:50] LABS: Hemoglobin A1C% w Est Avg Glu 5.6 % (4.0-6.0)
[2021-09-17 10:01] LABS: Alanine Aminotransferase 26 IU/L (<35); Albumin 4.4 g/dL (3.5-5.0); Albumin Globulin Ratio 1.5 (1.0-2.8); Alkaline Phosphatase 55 U/L (38-126); Aspartate Aminotransferase 35 IU/L (14-36); BUN Creatinine Ratio 27.6 (6-22); Bilirubin Total 0.5 mg/dL (0.2-1.3); Blood Urea Nitrogen 21 mg/dL (7-17); Calcium 9.7 mg/dL (8.4-10.2); Carbon Dioxide 28 mmol/L (22-32); Chloride 105 mmol/L (98-107); Cholesterol 302 mg/dL (140-199); Estimated Glomerular Filt Rate > 60.0 mL/min (>60); Globulin 2.9 g/dL (1.7-4.1); Glucose 101 mg/dL (80-110); HDL Cholesterol 110 mg/dL (40-60); HEMOLYSIS < 15 (0-50); LDL Cholesterol Calculated 170 mg/dL (<100); Potassium 4.2 mmol/L (3.4-5.1); Sodium 139 mmol/L (137-145); Total Protein 7.3 g/dL (6.3-8.2); Triglycerides 109 mg/dL (35-150)
== END ==
PROVIDERS: PCP Family Medicine; Referring Provider Family Medicine; Visit Provider Family Medicine
DX: R73.03 Prediabetes (principal); I10 Essential (primary) hypertension
CPT/HCPCS: 36415; 80053; 80061; 83036

== ENCOUNTER → 2021-09-30 11:46 | Outpatient (CLI) | payer MEDICARE, SELFPAY ==
[2020-05-19 19:41] VITALS: BMI 25.2
[2021-09-30 12:15] LABS: COVID19 -Nasal RAPID Negative (Negative)
== END ==
PROVIDERS: PCP Family Medicine; Visit Provider Physical Medicine & Rehabilitation
DX: Z20.822 Contact with and (suspected) exposure to COVID-19 (principal)
CPT/HCPCS: 87635; C9803

== ENCOUNTER 2021-10-01 07:17 | Outpatient (CLI) | payer MEDICARE, SELFPAY ==
[2020-05-19 19:41] VITALS: BMI 25.2
[2021-10-01] VITALS (10 sets, daily range): BP systolic 139–205; BP diastolic 67–91; PULSE 59–72; RESP 10–22; TEMP 36.1–36.2; O2SAT 94–100
--- NOTE | 2021-10-01 07:23 | DI.RAD.S_ITS ---
PROCEDURE: PAIN L/S MED/LAT N RFA INDICATIONS: SPONDYLOSIS COMPARISON: None. FINDINGS: Fluoroscopic spot filming was performed to verify placement of spinal needles at the L3, L4, L5, S1 level(s), as labeled on the films. Dictated by: Evangelist Zavala M.D. on 10/01/2021 at 10:33 Approved by: Evangelist Zavala M.D. on 10/01/2021 at 10:33
[2021-10-01] MEDS: fentaNYL 100 MCG/2 ML INJ 50 MCG IV (08:30)
[2021-10-01] MEDS: MIDAZOLAM 5 MG/5 ML VIAL IV (08:38)
[2021-10-01] MEDS: LIDOCAINE 1% 20 ML 10 ML INJ (08:41)
[2021-10-01] MEDS: BUPIVACAINE 0.5% (PF) VIAL 5 ML INJ (08:41)
--- NOTE | 2021-10-01 09:02 | P.PCN_ITS ---
Date/Time/Diagnoses Date of procedure: 10/01/21 Time of procedure: 09:02 Pre-procedure diagnosis: 1. RECALCITRANT FACET ARTHROPATHY Post-procedure diagnosis: same Procedure Notes Procedure: 1. LEFT L3, L4 AND L5 MEDIAL BRANCH RADIOFREQUENCY NEUROTOMY AND LEFT S1 DORSAL RAMUS RADIOFREQUENCY NEUROTOMY, Indications: Juli is referred by Dr. Haynes for treatment of facet arthropathy. Physician: Adelfo Sepulveda Total Fluoroscopy time (seconds): 6 Total sedation minutes: 32 Complications: none Procedure in detail & Post-procedure care: DESCRIPTION OF PROCEDURE Left L3, L4 and L5 medial branch radiofrequency neurotomy and left S1 dorsal ramus branch radiofrequency neurotomy under fluoroscopy with conscious sedation. The patient is well known to this clinic having undergone previous facet injections with good but temporary relief. The patient has experienced appropriate, concordant relief with previous facet and median branch blocks but the patient's pain has been recalcitrant to further conservative measures. Therefore, based upon the patient's relief and persistent symptoms, the patient is considered an appropriate candidate for facet rhizotomy. All of the patient's questions regarding the risks versus benefits of the procedure, including, but not limited to, bleeding, infection, temporary as well as lasting nerve injury, paralysis, stroke, and , as well treatment alternatives were answered to satisfaction. After obtaining informed consent, denial of pertinent drug allergies, as well as being made aware of the potential risks of bleeding, infection, spinal cord trauma, paralysis, temporary and permanent nerve damage, seizure, stroke, and possible , the patient was brought to the fluoroscopy suite and positioned prone on the fluoroscopy table. The lumbar region was prepped with Betadine and covered with a fenestrated drape in the usual sterile fashion. Appropriate monitors applied including pulse oximeter, pulse, and blood pressure for regular monitoring throughout the procedure. IV sedation was accomplished with a combination of 3mg of Versed and 50mcg of Fentanyl titrated to patient comfort during the course of the procedure while the patient remained responsive to all verbal commands. After local infiltration using 1% lidocaine, under fluoroscopic guidance, a 10- cm RF insulated needle with a 10-mm active tip was positioned parallel to the junction of the left sacral ala and the superior articulating process where the S1 dorsal ramus resides. Needle placement was confirmed with sensory stimulation at 50 Hz, with motor stimulation of .5v on the left which produced local stimulation without radicular component. The stimulation was then increased to 2v with, once again, only local multifidus stimulation without radicular component. This was then followed by two discreet lesions performed at 80 degrees Celsius for 90 seconds each. The needle was then removed and the identical procedure was performed along the length of the left L5 medial branch with motor stimulation at .7v on the left. The identical procedure was once again performed along the length of the left L4 medial branch with motor stimulation of .5v on the left. The identical procedure was once again performed along the length of the left L4 medial branch with motor stimulation of .5v on the left The patient tolerated the procedure well without signs or symptoms of complications prior to transfer to the recovery area continued monitoring without incident. The patient was then transferred to the recovery area where they were observed for an appropriate period of time after the injection. The patient was then transferred to the recovery area where they were observed for an appropriate period of time after the injection. The patient reported a VAS score of 9 prior to the procedure and a post- procedure VAS of 0. POST OP INSTRUCTIONS The patient was provided a Pain Log to continue to record the patient's response to the target-specific procedure prior to the patient's follow-up visit with the referring physician. Additionally, specific post-injection care instructions and a contact number to our office were provided if concerns arise regarding possible complications associated with the procedure are suspected.
== END 2021-10-01 09:15 | disposition home or self-care (01) ==
PROVIDERS: PCP Family Medicine; Referring Provider Physical Medicine & Rehabilitation; Visit Provider Physical Medicine & Rehabilitation
DX: M47.816 Spondylosis without myelopathy or radiculopathy, lumbar region (principal); M47.817 Spondylosis without myelopathy or radiculopathy, lumbosacral region
CPT/HCPCS: 64635; 64636; 99152; 99153; J2250; J3010

== ENCOUNTER → 2021-10-28 10:51 | Outpatient (CLI) | payer MEDICARE, SELFPAY ==
[2020-05-19 19:41] VITALS: BMI 25.2
[2021-10-28 11:27] LABS: COVID19 -Nasal RAPID Negative (Negative)
== END ==
PROVIDERS: PCP Family Medicine; Referring Provider Physician Assistant; Visit Provider Physician Assistant
DX: Z20.822 Contact with and (suspected) exposure to COVID-19 (principal)
CPT/HCPCS: 87635

== ENCOUNTER → 2021-10-30 12:32 | Outpatient (CLI) | payer MEDICARE, SELFPAY ==
[2020-05-19 19:41] VITALS: BMI 25.2
--- NOTE | 2021-10-30 12:33 | DI.RAD.S_ITS ---
PROCEDURE: XR CHEST 2V INDICATIONS: rule out pneumonia TECHNIQUE: 2 views of the chest were acquired. COMPARISON: [facility], CR, XR CHEST 1V, 05/19/2020, 11:26. FINDINGS: Surgical changes and devices: None. Lungs and pleura: Lungs are clear. No pleural effusions or pneumothorax. Mediastinum: Mediastinal contours are normal. Heart size is normal. Bones and chest wall: Mild pectus excavatum. No suspicious bony abnormalities. Soft tissues appear unremarkable. IMPRESSION: No acute cardiopulmonary disease. Dictated by: Salazar Bertrand M.D. on 10/30/2021 at 17:14 Approved by: Salazar Bertrand M.D. on 10/30/2021 at 17:15
== END ==
PROVIDERS: PCP Family Medicine; Referring Provider Family Medicine; Visit Provider Family Medicine
DX: J06.9 Acute upper respiratory infection, unspecified (principal)
CPT/HCPCS: 71046

== ENCOUNTER → 2023-02-04 12:24 | Outpatient (CLI) | payer MEDICARE, SELFPAY ==
[2023-01-27 11:58] VITALS: BMI 25.2
[2023-02-04 13:06] LABS: Add Manual Diff / Slide Review NO; Basophils Absolute Auto 100 /uL (0-100); Basophils Percent Auto 1.4 % (0-2); Eosinophils Absolute Auto 100 /uL (0-450); Eosinophils Percent Auto 2.6 % (2-4); Hematocrit 37.8 % (36-46); Hemoglobin 12.7 g/dL (12.0-16.0); Lymphocytes Absolute Auto 1900 /uL (1100-4500); Lymphocytes Percent Auto 34.2 % (25-40); Mean Corpuscular HGB Conc 33.5 % (30-36); Mean Corpuscular Hemoglobin 31.6 PG (26-34); Mean Corpuscular Volume 94.2 fL (80-100); Monocytes Absolute Auto 600 /uL (0-900); Neutrophils Absolute Auto 2900 /uL (1500-7000); Neutrophils Percent Auto 51.8 % (50-75); Platelet Count 183 X10^3/uL (150-400); Red Blood Cell Count 4.01 X10^6/uL (4.0-5.2); Red Cell Distribution Width 14.6 % (11.6-14.8); White Blood Cell Count 5.5 X10^3/uL (4.5-11.0)
[2023-02-04 13:29] LABS: HEMOLYSIS 25 (0-50); Iron 110 ug/dL (37-170)
[2023-02-04 13:31] LABS: Alanine Aminotransferase 23 IU/L (<35); Albumin 4.6 g/dL (3.5-5.0); Albumin Globulin Ratio 1.4 (1.0-2.8); Alkaline Phosphatase 54 U/L (38-126); Aspartate Aminotransferase 29 IU/L (14-36); BUN Creatinine Ratio 29.1 (6-22); Bilirubin Total 0.6 mg/dL (0.2-1.3); Bilirubin Unconjugated 0.3 mg/dL (0.0-1.1); Blood Urea Nitrogen 25 mg/dL (7-17); Calcium 9.3 mg/dL (8.4-10.2); Carbon Dioxide 27 mmol/L (22-32); Chloride 105 mmol/L (98-107); Estimated Glomerular Filt Rate > 60 mL/min (>60); Globulin 3.4 g/dL (1.7-4.1); Glucose 85 mg/dL (80-110); HEMOLYSIS < 15 (0-50); Sodium 139 mmol/L (137-145)
[2023-02-04 13:41] LABS: Percent Iron Saturation 37 % (15-50); Total Iron Binding Capacity 295 ug/dL (265-497); Transferrin 221 mg/dL (206-381)
[2023-02-04 13:49] LABS: Free T3, Triiodothyronine Free 3.03 pg/mL (2.77-5.27)
[2023-02-04 14:01] LABS: Thyroid Stimulating Hormone 1.12 uIU/mL (0.47-4.68)
[2023-02-04 14:04] LABS: Ferritin 188 ng/mL (11-264)
[2023-02-04 14:35] LABS: Folate 9.4 ng/mL (2.76-20.0); Vitamin B12 451 pg/mL (239-931)
[2023-02-04 18:08] LABS: Vitamin D 25 Hydroxy (D3) 44.9 ng/mL (30.0-100.0)
[2023-02-05 23:25] LABS: Zinc 65 ug/dL (44-115)
[2023-02-08 11:25] LABS: Thyrotropin Receptor AB <1.10 IU/L (0.00-1.75)
== END ==
PROVIDERS: PCP Family Medicine; Referring Provider Nurse Practitioner; Visit Provider Nurse Practitioner
DX: L65.9 Nonscarring hair loss, unspecified (principal)
CPT/HCPCS: 36415; 80053; 80076; 82306; 82607; 82728; 82746; 83520; 83540; 83550; 84439; 84443; 84481; 84630; 85025

== ENCOUNTER → 2023-02-04 12:27 | Outpatient (CLI) | payer MEDICARE, SELFPAY ==
[2023-01-27 11:58] VITALS: BMI 25.2
--- NOTE | 2023-02-04 12:28 | DI.RAD.S_ITS ---
PROCEDURE: XR LUMBAR SPINE MIN 4V INDICATIONS: Low back pain TECHNIQUE: 5 views of the lumbar spine acquired, including right and left oblique views. COMPARISON: [facility], CR, XR LUMBAR SPINE 2-3V, 05/14/2020, 10:09. MR, MR LUMBAR SPINE WO CON, 05/19/2020, 11:24. [facility], CR, XR LUMBAR SPINE MIN 4V, 06/24/2021, 13:32. FINDINGS: Bones: 5 nonrib-bearing vertebrae are present. There is moderate levoscoliosis. There is grade 1 anterolisthesis of L5 on S1. No vertebral body compression fractures. No suspicious bony lesions. Degenerative disc disease is present, severe at L2-L3, L3-L4 and L4-L5, moderate at T12-L1, L1-L2 and L5-S1. Moderate to severe facet arthropathy at L1-L2 L2-L3, L3-L4, L4-L5 and L5-S1. Soft tissues: Overlying bowel gas pattern is normal. No suspicious soft tissue calcifications. Oblique views: There is no pars defect. IMPRESSION: 1. Scoliosis. 2. Severe degenerative disc disease. 3. Nivicelz-dl-yswjqv facet arthropathy. 4. Grade 1 anterolisthesis at L5-S1. No pars defect. Dictated by: Salazar Bertrand M.D. on 02/05/2023 at 9:27 Approved by: Salazar Bertrand M.D. on 02/05/2023 at 9:30
--- NOTE | 2023-02-04 12:28 | DI.RAD.S_ITS ---
PROCEDURE: XR HIP W PEL IF DONE LT 2V INDICATIONS: LEFT HIP PAIN TECHNIQUE: AP pelvis with lateral view(s) of the left hip(s). COMPARISON: [facility], CR, XR PELVIS WITH LATERAL HIP RIGHT, 09/21/2020, 13:25. FINDINGS: Bones: No fractures or dislocations. Pelvic ring appears intact. No suspicious bony lesions. Mild degenerative joint disease in hips and sacroiliac joints bilaterally. Soft tissues: The visualized bowel gas pattern is normal. Ossicles are seen over the greater trochanters bilaterally, unchanged. IMPRESSION: 1. Mild degenerative joint disease. Dictated by: Salazar Bertrand M.D. on 02/05/2023 at 9:35 Approved by: Salazar Bertrand M.D. on 02/05/2023 at 9:37
== END ==
PROVIDERS: PCP Family Medicine; Referring Provider Anesthesiology; Visit Provider Anesthesiology
DX: M47.26 Other spondylosis with radiculopathy, lumbar region; M51.16 Intervertebral disc disorders with radiculopathy, lumbar region; M51.17 Intervertebral disc disorders with radiculopathy, lumbosacral region; M47.27 Other spondylosis with radiculopathy, lumbosacral region; M43.17 Spondylolisthesis, lumbosacral region; M16.0 Bilateral primary osteoarthritis of hip; M46.1 Sacroiliitis, not elsewhere classified; M70.62 Trochanteric bursitis, left hip; M41.9 Scoliosis, unspecified; M25.552 Pain in left hip; M54.50 Low back pain, unspecified; G89.29 Other chronic pain
CPT/HCPCS: 72110; 73502; 99214

== ENCOUNTER → 2023-03-18 08:40 | Outpatient (CLI) | payer MEDICARE, SELFPAY ==
[2023-01-27 11:58] VITALS: BMI 25.2
--- NOTE | 2023-03-18 08:41 | DI.MRI.S_ITS ---
PROCEDURE: MR LUMBAR SPINE WO CON INDICATIONS: Lumbar radiculopathy TECHNIQUE: Noncontrast sagittal T1 spin echo and T2 fast echo, sagittal STIR, and T2 fast spin echo through the lumbar spine. In cases with scoliosis, additional coronal T2 fast spin echo may be performed. COMPARISON: [facility], MR, MR LUMBAR SPINE WO CON, 05/19/2020, 11:24. FINDINGS: Image quality: Excellent. Alignment and Curvature: There is grade 1 L5 on S1 anterolisthesis which is new when compared with the study from 2019. There is normal bony alignment. Bone Marrow: Marrow is of normal overall signal. No acute vertebral body compression fractures. Spinal Cord: Conus medullaris terminates at the L1 level. Visualized cord demonstrates normal signal and size. Paraspinous Soft Tissues: No paravertebral masses. T2 hyperintense lesions are visualized within the posterior right hepatic lobe and within the bilateral kidneys suggesting the presence of cysts which are incompletely characterized on this limited view. T12-L1: Severe disc desiccation and height loss. There is vacuum disc phenomenon which is new when compared with the study dated May 19, 2020. Broad-based disc bulge. Moderate facet ligamentum flavum hypertrophy. No canal stenosis. Moderate bilateral foraminal stenosis. These findings are similar to the study dated May 19, 2020. L1-L2: Severe disc desiccation and height loss. Vacuum disc phenomenon. Broad-based disc bulge. Moderate facet ligamentum flavum hypertrophy. No canal stenosis. Mild bilateral foraminal stenosis. Findings are unchanged. L2-L3: Severe disc desiccation and height loss. Reactive endplate changes. Severe facet and ligamentum flavum hypertrophy. Mild canal stenosis. Mild left and moderate right neural foraminal stenosis. Findings are unchanged from the prior study. L3-L4: Severe disc desiccation and height loss. Reactive endplate changes. Severe facet and ligamentum flavum hypertrophy. No canal stenosis. Severe bilateral neural foraminal stenosis. These findings are unchanged from the prior study. L4-L5: Severe disc desiccation and height loss. Broad-based disc bulge. Severe facet and ligamentum flavum hypertrophy. Reactive endplate changes. Moderate canal stenosis. Moderate left and mild right foraminal narrowing. Findings are unchanged from the prior study. L5-S1: Approximately 3 mm is present which is new when compared with the prior study. There is new vacuum disc phenomenon. Broad-based disc bulge. Severe facet sclerosis. Moderate canal stenosis. Moderate right and severe left foraminal stenosis. The extent of neural foraminal narrowing is increased from the prior study. IMPRESSION: 1. New disc desiccation, height loss, vacuum disc phenomenon and grade 1 L5 on S1 anterolisthesis when compared with the study dated May 19, 2020. There is now moderate canal stenosis, moderate right, and severe left foraminal narrowing. 2. Severe disc desiccation, height loss, vacuum disc phenomenon, and reactive endplate changes throughout the lumbar spine. 3. Mild L2-3 and moderate L4-5 canal stenosis redemonstrated and unchanged. 4. Moderate bilateral foraminal stenosis at T12-L1, severe bilateral foraminal stenosis at L3-4 and moderate left foraminal stenosis at L4-5, unchanged from the prior study. Dictated by: Kiley Skelton M.D. on 03/18/2023 at 12:01 Approved by: Kiley Skelton M.D. on 03/18/2023 at 12:09
== END ==
PROVIDERS: PCP Family Medicine; Referring Provider Anesthesiology; Visit Provider Anesthesiology
DX: M54.32 Sciatica, left side (principal); M54.16 Radiculopathy, lumbar region; M43.17 Spondylolisthesis, lumbosacral region; M48.07 Spinal stenosis, lumbosacral region; M48.061 Spinal stenosis, lumbar region without neurogenic claudication; M48.05 Spinal stenosis, thoracolumbar region
CPT/HCPCS: 72148

== ENCOUNTER → 2023-04-17 09:03 | Outpatient (CLI) | payer MEDICARE, SELFPAY ==
[2023-01-27 11:58] VITALS: BMI 25.2
--- NOTE | 2023-04-17 09:05 | DI.ECHO.S_ITS ---
[facility]---------+ [facility] +---------+ : : [address] : : : : [id number] : : : : Phone: [phone]+ Echocardiogram Report + + :Name: ANGELA SWARTZ Study Date: 04/17/2023 Height: 68 in : :[facility] ReadingLocation: Weight: 160 lb : : Gender: Female BSA: 1.9 m2 : :: 1940 Age: 82 yrs BP: 144/89 mmHg: :Reason For Study: CARDIOMEGALY, HYPTERTENSION HR: 65 : :Ordering Physician: JOSE, : :RED Bernal Performed By: JAKE BEAVERS : :Referring: RED GARCIA : + + Interpretation Summary The left ventricle is normal in size and wall thickness. Left ventricular systolic function is normal. The ejection fraction is estimated to be 50-55%. There are no focal wall motion abnormalities. Diastolic parameters suggest a relaxation abnormality of the left ventricle, consistent with probable normal filling pressures. The right ventricle is normal in size and function. The right ventricular systolic pressure is estimated to be at least 17 mmHg based on an estimated right atrial pressure of 3 mm Hg. Both atria are normal in size. There is mild to moderate aortic regurgitation. There is no other significant valvular heart disease. The aortic root is mildly dilated. Procedure: A two-dimensional transthoracic echocardiogram with color flow and Doppler was performed. The study quality was technically adequate. There is no prior echocardiogram noted for this patient. The patient was in normal sinus rhythm during the exam. Left Ventricle: The left ventricle is normal in size and wall thickness. Left ventricular systolic function is normal. The ejection fraction is estimated to be 50-55%. There are no focal wall motion abnormalities. Diastolic parameters suggest a relaxation abnormality of the left ventricle, consistent with probable normal filling pressures. Right Ventricle: The right ventricle is normal in size and function. Atria: Both atria are normal in size. There is no Doppler evidence for an interatrial shunt. Mitral Valve: There is mild mitral annular calcification. There is trace mitral regurgitation. Aortic Valve: The aortic valve is trileaflet. The aortic valve is slightly calcified. There is no aortic valve stenosis. There is mild to moderate aortic regurgitation. Tricuspid Valve: The tricuspid valve is normal in structure and function. There is trace tricuspid regurgitation. The right ventricular systolic pressure is estimated to be at least 17 mmHg based on an estimated right atrial pressure of 3 mm Hg. Pulmonic Valve: The pulmonic valve leaflets are thin and pliable; valve motion is normal. There is no pulmonic valvular regurgitation. There is no other significant valvular heart disease. Great Vessels: The aortic root is mildly dilated. The ascending aorta is normal in size. The IVC is of normal diameter and collapses greater than 50% with a sniff. This suggests a low right atrial pressure of 3 mm Hg. Pericardium/ Pleura There is no pericardial effusion. There is no pleural effusion. MMode/2D Measurements & Calculations LVIDd: 4.3 cm LVOT diam: 2.0 cm LVIDs: 2.7 cm Ao root diam: 4.1 cm FS: 37.2 % asc Aorta Diam: 3.7 cm IVSd: 1.2 cm LVPWd: 1.1 cm LV hitchcock. diameter/BSA (cm/m^2): 2.3 LV sys. diameter/BSA (cm/m^2): 1.5 LA A2 area: 14.7 cm2 RA long axis: 5.3 cm LA A4 area: 16.4 cm2 LA length (vol): 4.7 cm LA vol: 43.6 ml LA vol index: 23.5 ml/m2 LVLs ap4: 7.1 cm LVLd ap2: 7.9 cm LVLs ap2: 7.3 cm TAPSE_phl: 1.9 cm Doppler Measurements & Calculations Ao V2 max: 122.0 cm/sec LVOT Max Jefe: 111.0 cm/sec Ao V2 mean: 81.8 cm/sec LV V1 max P.9 mmHg Ao max P.0 mmHg LV V1 VTI: 27.2 cm Ao mean P.0 mmHg FRANCISCA(I,D): 2.9 cm2 Ao V2 VTI: 29.1 cm FRANCISCA(V,D): 2.9 cm2 sev ratio: 0.93 FRANCISCA indexed to BSA (cm^2/m^2): 1.6 AI P1/2t: 530.3 msec AI dec slope: 264.0 cm/sec2 MV E max jefe: 51.4 cm/sec TR max jefe: 187.0 cm/sec MV A max jefe: 102.0 cm/sec TR max P.0 mmHg MV E/A: 0.50 PA V2 max: 57.1 cm/sec Med Peak E' Jefe: 4.1 cm/sec PA V2 mean: 45.6 cm/sec E/E' med: 12.7 PA mean P.0 mmHg Lat Peak E' Jefe: 6.0 cm/sec PA pr(Accel): 40.8 mmHg E/E' lat: 8.6 E/e' average: 10.6 MV dec time: 0.28 sec SV(LVOT): 85.5 ml AV P1/2t-pr_phl: 575.0 msec AV VR_phl: 0.91 FRANCISCA(VTI)/BSA_phl: 1.6 MV P1/2t-pr_phl: 81.0 msec Reading Physician:02:18 PM
== END ==
PROVIDERS: PCP Family Medicine; Referring Provider Physician Assistant; Visit Provider Physician Assistant
DX: I10 Essential (primary) hypertension (principal); I51.7 Cardiomegaly; I35.1 Nonrheumatic aortic (valve) insufficiency; I77.819 Aortic ectasia, unspecified site
CPT/HCPCS: 93306

== ENCOUNTER → 2023-04-30 09:02 | Outpatient (CLI) | payer MEDICARE, SELFPAY ==
[2023-01-27 11:58] VITALS: BMI 25.2
[2023-04-30 09:43] LABS: Alanine Aminotransferase 26 IU/L (<35); Albumin 4.2 g/dL (3.5-5.0); Albumin Globulin Ratio 1.3 (1.0-2.8); Alkaline Phosphatase 55 U/L (38-126); Aspartate Aminotransferase 30 IU/L (14-36); BUN Creatinine Ratio 26.7 (6-22); Bilirubin Total 0.4 mg/dL (0.2-1.3); Blood Urea Nitrogen 24 mg/dL (7-17); Calcium 9.7 mg/dL (8.4-10.2); Carbon Dioxide 29 mmol/L (22-32); Chloride 103 mmol/L (98-107); Cholesterol 258 mg/dL (140-199); Estimated Glomerular Filt Rate > 60 mL/min (>60); Globulin 3.2 g/dL (1.7-4.1); Glucose 99 mg/dL (80-110); HDL Cholesterol 76 mg/dL (40-60); HEMOLYSIS < 15 (0-50); LDL Cholesterol Calculated 162 mg/dL (<100); Potassium 4.6 mmol/L (3.4-5.1); Sodium 138 mmol/L (137-145); Total Protein 7.4 g/dL (6.3-8.2); Triglycerides 99 mg/dL (35-150)
[2023-04-30 10:14] LABS: TSH w/ Reflex to FT4 2.65 uIU/mL (0.47-4.68)
[2023-04-30 10:53] LABS: Creatinine Urine Random 62.2 mg/dL
[2023-04-30 11:00] LABS: Microalbumin Urine Random < 0.6 mg/dL (0-1.6)
== END ==
PROVIDERS: PCP Family Medicine; Referring Provider Physician Assistant; Visit Provider Physician Assistant
DX: E78.5 Hyperlipidemia, unspecified (principal); I10 Essential (primary) hypertension
CPT/HCPCS: 36415; 80053; 80061; 82043; 82570; 84443

== ENCOUNTER 2023-05-13 08:08 | Outpatient (CLI) | payer MEDICARE, SELFPAY ==
[2023-01-27 11:58] VITALS: BMI 25.2
[2023-05-13] VITALS (7 sets, daily range): BP systolic 157–188; BP diastolic 71–89; PULSE 59–66; RESP 16–20; TEMP 36.2; O2SAT 96–100
--- NOTE | 2023-05-13 08:10 | DI.RAD.S_ITS ---
PROCEDURE: PAIN L INTERLAMINAR/CAUDAL INJ INDICATIONS: SPONDYLOSIS COMPARISON: None. FINDINGS: Fluoroscopic spot filming was performed to verify placement of spinal needles at the L5-S1 level(s), as labeled on the films. Appropriate location(s) of the needle tip(s) was confirmed by injection of iodinated contrast. IMPRESSION: L5-S1 needle placement as above. Dictated by: Ann Mcbride M.D. on 05/13/2023 at 15:26 Approved by: Ann Mcbride M.D. on 05/13/2023 at 15:26
[2023-05-13] MEDS: IOPAMIDOL 15 ML VIAL 3 ML INJ (08:30)
[2023-05-13] MEDS: DEXAMETHASONE 10 MG/ML VIAL 20 MG INJ (08:31)
[2023-05-13] MEDS: BUPIVACAINE 0.25% (PF) VIAL 2 ML INJ (08:31)
--- NOTE | 2023-05-13 09:41 | P.PCN_ITS ---
Date/Time/Diagnoses Date of procedure: 05/13/23 Time of procedure: 08:30 Procedure Notes Physician: Tino Mueller Total Fluoroscopy time (seconds): 32 Total sedation minutes: 0 Procedure in detail & Post-procedure care: Left L5-S1 Transforaminal Epidural Steroid Injection Indications: Juli is presenting for treatment of lumbar radiculopathy with low back and leg pain. Preoperative diagnosis: Lumbar radiculopathy Postoperative diagnosis: Same Focused Examination: Ax3 Mood and affect are normal Vital Signs: VSS ASA: 2 Consent: Following review of allergies and potential side effects/complications, including, but not necessarily limited to, infection, allergic reaction, local tissue breakdown, stroke, temporary or permanent nerve injury, paralysis, and possible , the patient indicated that they understood and agreed to proceed.? An informed consent document was signed by the patient, witnessed by a nurse and placed in the patient's chart.? Additionally, other treatment options including medications and physical therapy were reviewed with the patient. All questions were answered. Site was then marked. Anesthesia: Local with oral sedation Position: Prone Monitoring: NIBP, Pulse oximetry, 3 lead EKG Needle used: 18 G 3.5? Tuohy Contrast: Isovue 300M Injectate: Dexamethasone 15 mg with 0.25% Bupivacaine 1.5 Technique: The skin was prepped with chloraprep and then draped in a sterile fashion. Time out was performed as per protocol. Oxygen applied via NC. Skin and subcutaneous structures of the needle entry site was then infiltrated with 3 mL of lidocaine 1%. Under AP, lateral and contralateral oblique fluoroscopic control, the Tuohy needle was guided into the L5-S1 epidural space. The space was accessed with loss of resistance technique. Isovue 300M was then injected and the spread was consistent with the epidural space. There was no evidence for intravascular or intrathecal uptake. The patient expressed left leg paresthesias and discomfort during the administration of contrast. The Touhy needle was withdrawn and replaced into a different location. She again had severe pain of the left leg with injection of contrast. The interlaminar portion was aborted in favor for a transforaminal approach. Skin and subcutaneous structures of the needle entry site were infiltrated with 3mL of lidocaine 1%. Under fluoroscopic guidance, using an ipsilateral oblique view,?a 22 gauge 3.5 inch needle was advanced to the base of the L5?pedicle.? The needle was advanced to the superio-posterior aspect of the neural foramen under lateral view.? Oblique and AP views were rechecked. No paresthesias noted by the patient during needle placement. In AP view and utilizing real-time digital subtraction fluoroscopy, 2 ml contrast was slowly injected. Epidural spread was observed without evidence for intravascular nor intrathecal uptake. Contrast spread was seen craniocaudally. The above injectate was then administered, and the needle was subsequently withdrawn. Band-Aids applied to injection sites. EBL: less than 1 ml Complications: None Post Procedure: Patient was taken to the recovery and monitored. The patient was provided a Pain Log to continue to record the patient's response to the target- specific procedure prior to the patient's follow-up visit with the referring physician. Patient was stable upon discharge. Detailed post procedure instructions were provided. Patient was asked to call in the event of worsening pain, fever, weakness, numbness or bladder or bowel incontinence.
== END 2023-05-13 08:55 | disposition home or self-care (01) ==
PROVIDERS: PCP Family Medicine; Referring Provider Anesthesiology; Visit Provider Anesthesiology
DX: M54.16 Radiculopathy, lumbar region (principal)
CPT/HCPCS: 62323; J1100; J3490

== ENCOUNTER 2023-09-09 09:56 | Outpatient (CLI) | payer MEDICARE, SELFPAY ==
[2023-01-27 11:58] VITALS: BMI 25.2
[2023-09-09] VITALS (8 sets, daily range): BP systolic 158–196; BP diastolic 70–85; PULSE 59–67; RESP 12–20; TEMP 36.1; O2SAT 97–100
--- NOTE | 2023-09-09 09:57 | DI.RAD.S_ITS ---
PROCEDURE: PAIN SI JOINT INJECTION INDICATIONS: JOINT DYSFUNCTION COMPARISON: [facility], CR, XR LUMBAR SPINE MIN 4V, 02/04/2023, 13:00. FINDINGS: On these intraprocedural images, there is a spinal needle seen overlying the inferior aspect of the left sacroiliac joint. Appropriate position of the tip of the needle was confirmed by injection of a small amount of iodinated contrast. IMPRESSION: Successful sacroiliac joint injection. Dictated by: Hossein Abernathy M.D. on 09/09/2023 at 17:32 Approved by: Hossein Abernathy M.D. on 09/09/2023 at 17:33
[2023-09-09] MEDS: MIDAZOLAM 2 MG/2 ML VIAL 1 MG IV (10:33)
[2023-09-09] MEDS: BUPIVACAINE 0.25% (PF) VIAL 1 ML INJ (10:37)
[2023-09-09] MEDS: iopamidoL 15 ML VIAL 3 ML INJ (10:37)
--- NOTE | 2023-09-09 12:41 | PM.PROC.IR.1 ---
Date/Time/Diagnoses Date of procedure: 09/09/23 Time of procedure: 10:30 Procedure Notes Physician: Tino Mueller Total Fluoroscopy time (seconds): 12 Total sedation minutes: 10 Procedure in detail & Post-procedure care: Left Sacroiliac Joint Injection Indications: Juli is presenting for treatment of SI joint dysfunction with low back/buttock pain. Preoperative diagnosis: Left SI joint dysfunction Postoperative diagnosis: Same Focused Examination: Ax3 Mood and affect are normal Vital Signs: VSS ASA: 2 Consent: Following review of allergies and potential side effects/complications, including, but not necessarily limited to, infection, allergic reaction, local tissue breakdown, stroke, temporary or permanent nerve injury, paralysis, and possible , the patient indicated that they understood and agreed to proceed.? An informed consent document was signed by the patient, witnessed by a nurse and placed in the patient's chart.? Additionally, other treatment options including medications and physical therapy were reviewed with the patient. All questions were answered. Site was then marked. Anesthesia: After review of previous anesthetic history and IV conscious sedation, the patient was deemed safe to proceed with today's procedure with IV conscious sedation. IV sedation was accomplished with midazolam 1 mg administered by the RN after order by Dr. Mueller. Sedation was titrated to patient comfort during the course of the procedure. Patient remained responsive to all verbal commands. Position: Prone Monitoring: NIBP, Pulse oximetry, 3 lead EKG Needle used: 22 ga, 3.5 inch spinal Contrast: 2 mL Isovue M-300 Injectate: Depo-Medrol 40 mg with 0.25% bupivacaine 2 mL Technique: The skin was prepped with chloraprep and then draped in a sterile fashion. Time out was performed as per protocol. Oxygen applied via NC. Skin and subcutaneous structures of the needle entry site was then infiltrated with 5 mL of lidocaine 1%. Under AP and lateral fluoroscopic control, the spinal needle was guided into the left sacroiliac joint. 1 mL contrast was injected and was consistent with intra-articular placement. There was no evidence for intravascular uptake. After negative aspiration, the above-mentioned injectate was then slowly administered and the needle withdrawn. The patient expressed no unusual discomfort or paresthesias during the injection. EBL: less than 1 ml Complications: None Post Procedure: Patient was taken to the recovery and monitored. The patient was provided a Pain Log to continue to record the patient's response to the target-specific procedure prior to the patient's follow-up visit with the referring physician. Patient was stable upon discharge. Detailed post procedure instructions were provided. Patient was asked to call in the event of worsening pain, fever, weakness, numbness or bladder or bowel incontinence.
== END 2023-09-09 11:15 | disposition home or self-care (01) ==
PROVIDERS: PCP Family Medicine; Referring Provider Anesthesiology; Visit Provider Anesthesiology
DX: M53.3 Sacrococcygeal disorders, not elsewhere classified (principal)
CPT/HCPCS: 27096; 77002; 99152; J1030; J2250; J2920

== ENCOUNTER 2023-12-24 10:14 | Emergency (ER) | payer MEDICARE, SELFPAY ==
[2023-01-27 11:58] VITALS: BMI 25.2
[2023-12-24] VITALS (12 sets, daily range): BP systolic 163–204; BP diastolic 67–101; PULSE 53–66; RESP 15–27; TEMP 36.6; O2SAT 98–100; BMI 24.3
--- NOTE | 2023-12-24 10:24 | DI.RAD.S_ITS ---
PROCEDURE: XR CHEST 1V INDICATIONS: chest pain TECHNIQUE: One view of the chest was acquired. COMPARISON: [facility], CR, XR CHEST 2V, 10/30/2021, 12:26. [facility], CR, XR CHEST 1V, 05/19/2020, 11:26. FINDINGS: Surgical changes and devices: None. Lungs and pleura: Lungs are clear. No pleural effusions or pneumothorax. Mediastinum: Mediastinal contours appear normal. Heart size is normal. Bones and chest wall: No suspicious bony lesions. Overlying soft tissues appear unremarkable. IMPRESSION: No acute cardiopulmonary abnormality is seen. Dictated by: Shravan Regalado M.D. on 12/24/2023 at 11:19 Approved by: Shravan Regalado M.D. on 12/24/2023 at 11:19
[2023-12-24 10:43] LABS: Add Manual Diff / Slide Review NO; Basophils Absolute Auto 100 /uL (0-100); Eosinophils Absolute Auto 100 /uL (0-450); Eosinophils Percent Auto 2.2 % (2-4); Hematocrit 37.8 % (36-46); Hemoglobin 12.9 g/dL (12.0-16.0); Lymphocytes Absolute Auto 2100 /uL (1100-4500); Lymphocytes Percent Auto 33.5 % (25-40); Mean Corpuscular Volume 97.1 fL (80-100); Monocytes Absolute Auto 600 /uL (0-900); Monocytes Percent Auto 9.2 % (3-14); Neutrophils Absolute Auto 3400 /uL (1500-7000); Neutrophils Percent Auto 54.1 % (50-75); Platelet Count 205 X10^3/uL (150-400); Red Blood Cell Count 3.89 X10^6/uL (4.0-5.2); Red Cell Distribution Width 13.8 % (11.6-14.8); White Blood Cell Count 6.3 X10^3/uL (4.5-11.0)
[2023-12-24 10:54] LABS: Prothrombin Time 11.5 SECONDS (9.4-12.5)
[2023-12-24] MEDS: ASPIRIN 81 MG CHEW TAB 324 MG PO (10:56)
[2023-12-24 10:57] LABS: PTT Partial Thromboplastin Tim 23 SECONDS (25.1-36.5)
[2023-12-24 11:11] LABS: Alanine Aminotransferase 18 IU/L (<35); Albumin 4.4 g/dL (3.5-5.0); Albumin Globulin Ratio 1.3 (1.0-2.8); Alkaline Phosphatase 51 U/L (38-126); Aspartate Aminotransferase 27 IU/L (14-36); BUN Creatinine Ratio 29.7 (6-22); Bilirubin Total 0.7 mg/dL (0.2-1.3); Blood Urea Nitrogen 27 mg/dL (7-17); Calcium 9.6 mg/dL (8.4-10.2); Carbon Dioxide 27 mmol/L (22-32); Chloride 107 mmol/L (98-107); Creatine Kinase 125 U/L (30-135); Estimated Glomerular Filt Rate > 60 mL/min (>60); Globulin 3.4 g/dL (1.7-4.1); Glucose 93 mg/dL (80-110); HEMOLYSIS < 15 (0-50); Lipase 168 U/L (23-300); Magnesium 2.1 mg/dL (1.6-2.3); Potassium 4.1 mmol/L (3.4-5.1); Sodium 140 mmol/L (137-145); Total Protein 7.8 g/dL (6.3-8.2)
--- NOTE | 2023-12-24 11:18 | ED.CHESTPAIN ---
HPI - Chest Pain General Chief Complaint: Chest Pain Stated Complaint: possible PNA- talked to nurse at [facility] Time Seen by Provider: 12/24/23 10:37 Source: patient Mode of arrival: Ambulatory Limitations: no limitations History of Present Illness HPI narrative: Patient is a 83-year-old female history of hypertension chronic postnasal drip chronic low back pain with radicular symptoms presenting today with chest heaviness. She is really focused on her postnasal drip which she says has been there for the last 5-6 months. She she reports that she coughs up phlegm at night she has been discussing this with her primary care who recommended Afrin as needed she says it has not helped. Today she reports some chest heaviness she sometimes has shortness of breath she says that is due to her sciatic pain. Chest heaviness is not provoked. She denies any orthopnea no lower extremity edema. She denies any fever or chills. She says she does cough up some phlegm in her throat. She is convinced that this can not be her heart. And continues to talk about her nasal drip. She reports that she was sent here Related Data Home Medications Medication Instructions Recorded Confirmed lorazepam 0.5 mg tablet 0.5 mg PO BEDTIME PRN anxiety 08/14/21 07/30/23 ammonium lactate 12 % topical cream 1 applic topical 02/11/23 07/30/23 triamcinolone acetonide 0.1 % 1 applic topical 02/11/23 07/30/23 topical cream Previous Rx's Medication Instructions Recorded lisinopril 20 mg tablet 20 mg PO DAILY #90 tabs 05/04/23 celecoxib 200 mg capsule (Celebrex) 200 mg PO DAILY #100 caps 05/05/23 diazepam 5 mg tablet 5 mg PO ONCE PRN anxiety #1 tab 05/07/23 pregabalin 25 mg capsule 25 mg PO TID #90 caps 05/07/23 DISABLED PARKING PERMIT #1 ea 06/17/23 tramadol 50 mg tablet 50 mg PO BID PRN pain #42 tabs 10/19/23 Allergies Allergy/AdvReac Type Severity Reaction Status Date / Time No Known Drug Allergies Allergy Verified 12/24/23 10:19 Patient History Medical History (Updated 12/24/23 @ 13:13 by Gloria Luke DO) Sacroiliac dysfunction Lumbar spinal stenosis Greater trochanteric bursitis of left hip Alopecia Osteoarthritis GERD (gastroesophageal reflux disease) Lumbar radiculopathy Scoliosis Facet arthropathy, lumbar Chronic low back pain Degenerative disc disease Kidney infection Surgical History Anesthesia History of hysterectomy S/P epidural steroid injection Family History Father Heart disease Mother Cancer Brother Parkinson's disease Osteomyelitis Sister Gout Social History household members: none Smoking Status: Former smoker alcohol intake: current Smoking Status: Former smoker alcohol intake frequency: holidays/special occasions only Alcohol type: wine Substance Use Type: does not use Exam Initial Vital Signs Initial Vital Signs: Vital Signs Temperature 97.8 F 12/24/23 10:20 Pulse Rate 59 L 12/24/23 10:20 Respiratory Rate 15 12/24/23 10:20 Blood Pressure 199/84 H 12/24/23 10:20 Pulse Oximetry 98 12/24/23 10:20 Oxygen Delivery Method Room Air 12/24/23 10:20 GENERAL: Alert 83-year-old female HEENT: Head atraumatic,EOMI, pupils reactive, face symmetric, moist mucous membranes CARDIOVASCULAR: Regular rate and rhythm without murmurs, rubs or gallops. RESPIRATORY: Breath sounds equal bilaterally, no wheezes rales or rhonchi. ABDOMEN: Soft, nontender. Normoactive bowel sounds all 4 quadrants. No guarding or rebound. EXTREMITIES: Normal range of motion, no clubbing or edema. Neurovascularly intact NEUROLOGICAL: Alert and oriented x4.Normal gait and speech. SKIN: Warm, dry, no laceration, no petechiae, no rashes or lesions. Scores HEART Score Heart Score history: Moderately Suspicious Heart Score EKG: Normal Heart Score Age: > or = 65 years old Heart Score risk factors: 1-2 risk factors Heart Score troponin: < or = to normal limit Heart Score Total: 4 Course Orders Ordered: ED Orders 12/24/23 12:20 EKG-12 Lead Stat 12/24/23 12:30 Troponin I Stat Discontinued Medications Aspirin (Aspirin 81 Mg Chew Tab) 324 mg PO NOW ONE Stop: 12/24/23 10:25 Last Admin: 12/24/23 10:56 Dose: 324 mg Documented By: ROC Nitroglycerin (Nitroglycerin 0.4 Mg Sl Tab) 0.4 mg SL NOW ONE Stop: 12/24/23 11:58 Last Admin: 12/24/23 12:20 Dose: Not Given Documented By: ROC Vital Signs Vital signs: Vital Signs - 8 hr 12/24/23 12:00 12/24/23 12:00 12/24/23 12:30 Pulse Rate 53 L 57 L Respiratory Rate 19 26 H Blood Pressure 163/101 H Pulse Oximetry 99 99 Oxygen Delivery Method 12/24/23 13:00 12/24/23 13:01 12/24/23 13:01 Pulse Rate 63 55 L Respiratory Rate 25 H 23 Blood Pressure 173/77 H Pulse Oximetry Oxygen Delivery Method 12/24/23 13:42 Pulse Rate 60 Respiratory Rate 16 Blood Pressure 172/67 H Pulse Oximetry 98 Oxygen Delivery Method Room Air MDM - Chest Pain Lab Data 12/24/23 10:30 12/24/23 10:30 Labs: Lab Results 12/24/23 12/24/23 Range/Units 10:30 12:30 WBC 6.3 (4.5-11.0) X10^3/uL RBC 3.89 L (4.0-5.2) X10^6/uL Hgb 12.9 (12.0-16.0) g/dL Hct 37.8 (36-46) % MCV 97.1 (80-100) fL MCH 33.0 (26-34) PG MCHC 34.0 (30-36) % RDW 13.8 (11.6-14.8) % Plt Count 205 (150-400) X10^3/uL Neut % (Auto) 54.1 (50-75) % Lymph % (Auto) 33.5 (25-40) % [place] % (Auto) 9.2 (3-14) % Eos % (Auto) 2.2 (2-4) % Baso % (Auto) 1.0 (0-2) % Neut # (Auto) 3400 (4930-7095) /uL Lymph # (Auto) 2100 (7400-7361) /uL [place] # (Auto) 600 (0-900) /uL Eos # (Auto) 100 (0-450) /uL Baso # (Auto) 100 (0-100) /uL PT 11.5 (9.4-12.5) SECONDS INR 1.0 (0.9-1.3) APTT 23 L (25.1-36.5) SECONDS Sodium 140 (137-145) mmol/L Potassium 4.1 (3.4-5.1) mmol/L Chloride 107 (98-107) mmol/L Carbon Dioxide 27 (22-32) mmol/L BUN 27 H (7-17) mg/dL Creatinine 0.91 (0.52-1.04) mg/dL Estimated GFR > 60 (>60) mL/min BUN/Creatinine Ratio 29.7 H (6-22) Glucose 93 (80-110) mg/dL Calcium 9.6 (8.4-10.2) mg/dL Magnesium 2.1 (1.6-2.3) mg/dL Total Bilirubin 0.7 (0.2-1.3) mg/dL AST 27 (14-36) IU/L ALT 18 (<35) IU/L Alkaline Phosphatase 51 (38-126) U/L Total Creatine Kinase 125 (30-135) U/L Troponin I < 0.012 0.013 (0.01-0.034) ng/mL Total Protein 7.8 (6.3-8.2) g/dL Albumin 4.4 (3.5-5.0) g/dL Globulin 3.4 (1.7-4.1) g/dL Albumin/Globulin Ratio 1.3 (1.0-2.8) Lipase 168 (23-300) U/L Imaging Data Chest x-ray: Radiologist's Impression: PROCEDURE: XR CHEST 1V INDICATIONS: chest pain TECHNIQUE: One view of the chest was acquired. COMPARISON: [facility], , XR CHEST 2V, 10/30/2021, 12:26. [facility], , XR CHEST 1V, 05/19/2020, 11:26. FINDINGS: Surgical changes and devices: None. Lungs and pleura: Lungs are clear. No pleural effusions or pneumothorax. Mediastinum: Mediastinal contours appear normal. Heart size is normal. Bones and chest wall: No suspicious bony lesions. Overlying soft tissues appear unremarkable. IMPRESSION: No acute cardiopulmonary abnormality is seen. Dictated by: Shravan Regalado M.D. on 12/24/2023 at 11:19 ECG Data Interpretation: EKG 1. Sinus rhythm rate 55 TN interval 182 QRS 92 QTC 390 Low voltage sinus rhythm Q-wave noted in V2 and V3 without ST changes no priors to compare no acute ischemia Repeat EKGs sinus rhythm rate 52 no significant changes MDM Narrative Medical decision making narrative: Patient 83-year-old female who presents today with a postnasal drip that has been chronic however started complaining of chest heaviness. She is very focused on this postnasal drip. She has not concerned about her heart she denies any history of coronary artery disease. She was offered nitroglycerin and refused. She does have a heart score of 4. Blood work has been reviewed she is 2- troponin EKGs reviewed do show Q-waves in septal leads X-ray does not show any acute abnormalities Discussed with patient that she definitely needs further workup of her heart. I discussed with her that she needs to follow up with her PCP in regards to her postnasal drip and may need to go to specialist. Discharge Plan Departure Patient Disposition: Home Clinical Impression: Atypical chest pain Instructions: DI for Atypical Chest Pain Activity Restrictions/Additional Instructions: *You have been diagnosed with atypical chest *What to do: At this time I do recommend that you have further workup of your heart. Unfortunately I am not able to help you with your nose. Please talk with Dr. Wooten about referral *Continue to take medications as directed *Follow up with your primary care provider in 2-3 days or call [phone] *Return to ER if you should have increasing chest heaviness shortness of breath difficulty breathing pain or any new, worsening or concerning symptoms Prescriptions: No Action lisinopril 20 mg tablet 20 mg PO DAILY Qty: 90 3RF celecoxib [Celebrex] 200 mg capsule 200 mg PO DAILY Qty: 100 2RF Rx Instructions: TAKE DAILY DON'T USE ANY OTHER NSAIDS WITH THIS (DME) DISABLED PARKING PERMIT See Rx Instructions .Route .MEDSUPPLY Qty: 1 0RF Rx Instructions: As directed tramadol 50 mg tablet 50 mg PO BID PRN (Reason: pain) Qty: 42 2RF lorazepam 0.5 mg tablet 0.5 mg PO BEDTIME PRN (Reason: anxiety) Patient Comments: TAKE ONE HALF TO ONE TABLET BY MOUTH AT NIGHT NEEDED diazepam 5 mg tablet 5 mg PO ONCE PRN (Reason: anxiety) Qty: 1 0RF Rx Instructions: Take 1 hour prior to procedure pregabalin 25 mg capsule 25 mg PO TID Qty: 90 2RF Rx Instructions: 1 PO QHS x3 days If tolerated, 1 PO BID x3 days If tolerated, 1 PO TID ammonium lactate 12 % cream 1 applic topical triamcinolone acetonide 0.1 % cream 1 applic topical Referrals: Gena Haynes MD [Primary Care Provider] - Stand Alone Forms: Patient Portal/API
[2023-12-24 11:23] LABS: Troponin I < 0.012 ng/mL (0.01-0.034)
--- NOTE | 2023-12-24 12:18 | PC.NURSE ---
This RN attempted to give this patient prescribed Nitroglycerin. Patient refused to take this medication. Provider has talked to patient in regard to this medication and this patient still refuses to take this medication. Provider notified.
[2023-12-24 13:14] LABS: Troponin I 0.013 ng/mL (0.01-0.034)
== END 2023-12-24 13:43 | disposition home or self-care (01) ==
PROVIDERS: Emergency Provider Emergency Medicine; PCP Family Medicine
DX: R07.89 Other chest pain (principal)
CPT/HCPCS: 36415; 71045; 80053; 82550; 83690; 83735; 84484; 85025; 85610; 85730; 93005; 99284

== ENCOUNTER → 2024-01-18 11:46 | Outpatient (CLI) | payer MEDICARE, SELFPAY ==
[2023-01-27 11:58] VITALS: BMI 25.2
--- NOTE | 2024-01-18 11:48 | DI.RAD.S_ITS ---
PROCEDURE: XR CHEST 2V INDICATIONS: SOB TECHNIQUE: 2 views of the chest were acquired. COMPARISON: [facility], CR, XR CHEST 1V, 12/24/2023, 10:31. [facility], CR, XR CHEST 2V, 10/30/2021, 12:26. FINDINGS: Surgical changes and devices: None. Lungs and pleura: Lungs are clear. No pleural effusions or pneumothorax. Mediastinum: Mediastinal contours are normal. Heart size is normal. Bones and chest wall: No suspicious bony abnormalities. Soft tissues appear unremarkable. IMPRESSION: No acute cardiopulmonary abnormality is seen. Dictated by: Shravan Regalado M.D. on 01/18/2024 at 13:21 Approved by: Shravan Regalado M.D. on 01/18/2024 at 13:22
== END ==
LOC: RAD 11:48
PROVIDERS: PCP Family Medicine; Referring Provider Family Medicine; Visit Provider Family Medicine
DX: R06.02 Shortness of breath (principal)
CPT/HCPCS: 71046; 93005

== ENCOUNTER → 2024-01-21 15:12 | Outpatient (CLI) | payer MEDICARE, SELFPAY ==
[2023-01-27 11:58] VITALS: BMI 25.2
--- NOTE | 2024-01-22 02:14 | DI.NM.S_ITS ---
DATE OF SERVICE: 01/21/2024 PROCEDURE: Exercise stress test. INDICATIONS: Shortness of breath. CARDIAC STRESS: Patient underwent exercise stress test under the supervision of an attending staff. She walked on Fantasma protocol for 3 minutes and 52 seconds, achieved 7 METS of workload, maximum heart rate 154, which was 113% of target heart rate. Resting blood pressure 160/70 and peak blood pressure 220/80 mmHg. Baseline rhythm was sinus with intermittent PACs, PVCs. During exercise, PVCs became worse. At peak exercise, patient has frequent ventricular bigeminy run. No ventricular tachycardia. In early recovery, relatively quiet without any significant PACs and PVCs without any ischemic EKG changes. In late recovery, reappearance of PVCs and PACs. No chest discomfort. Patient has shortness of breath as well as back pain. CONCLUSION: Exercise stress test did not show any obvious inducible ischemia; however, patient has resting PVCs and PACs and PVCs got worse during exercise. No ventricular tachycardia or obvious atrial fibrillation. No obvious ischemic EKG changes. No chest discomfort; however, had shortness of breath and back pain. Hypertensive blood pressure response. Peak blood pressure 220/80. Consider repeating exercise stress test with imaging modality, like perfusion scan or exercise stress echo for further CAD risk stratification. AlexanderJuli - APPRISE COUNSELOR/morgan/ec doc#: [id number]/job#: [id number] dd: 01/21/2024 17:23:00 dt: 01/22/2024 02:01:00 DICTATING /COPIES TO: David Andres MD COPIES MNE: ALENA;
== END ==
LOC: DI 15:13
PROVIDERS: PCP Family Medicine; Referring Provider Family Medicine; Visit Provider Family Medicine
DX: R06.02 Shortness of breath (principal)
CPT/HCPCS: 93017

== ENCOUNTER 2024-02-23 09:44 | Outpatient (CLI) | payer MEDICARE, SELFPAY ==
[2023-01-27 11:58] VITALS: BMI 25.2
[2024-02-23] VITALS (9 sets, daily range): BP systolic 152–205; BP diastolic 65–115; PULSE 61–83; RESP 16–20; TEMP 36.8; O2SAT 95–99
--- NOTE | 2024-02-23 10:15 | DI.RAD.S_ITS ---
PROCEDURE: PAIN L/S TRANSFORAMINAL INJECT INDICATIONS: RADICULOPATHY COMPARISON: None. FINDINGS: Fluoroscopic spot filming was performed to verify placement of spinal needles at the L4-L5 level(s), as labeled on the films. Appropriate location(s) of the needle tip(s) was confirmed by injection of iodinated contrast. IMPRESSION: L4-L5 intra procedural guidance. Please see operative note for full details. Dictated by: Deshawn Osorio M.D. on 02/23/2024 at 14:00 Approved by: Deshawn Osorio M.D. on 02/23/2024 at 14:00
[2024-02-23] MEDS: MIDAZOLAM 2 MG/2 ML VIAL IV (10:55)
[2024-02-23] MEDS: fentaNYL 100 MCG/2 ML INJ 50 MCG IV (11:03)
[2024-02-23] MEDS: BUPIVACAINE 0.25% (PF) VIAL 2 ML INJ (11:05)
[2024-02-23] MEDS: DEXAMETHASONE 10 MG/ML VIAL IV (11:07)
[2024-02-23] MEDS: iopamidoL 15 ML VIAL 3 ML INJ (11:08)
[2024-02-23] MEDS: BETAMETHASONE 30 MG/5 ML MDV 6 MG INJ (11:08)
--- NOTE | 2024-02-23 11:18 | P.PCN_ITS ---
Date/Time/Diagnoses Date of procedure: 02/23/24 Time of procedure: 11:18 Pre-procedure diagnosis: 1. HNP WITH RADICULAR FEATURES, 2. MULTILEVEL CENTRAL STENOSIS, Post-procedure diagnosis: same Procedure Notes Procedure: 1. FLUOROSCOPICALLY GUIDED CONTRAST CONTROLLED TRANSFORAMINAL EPIDURAL STEROID INJECTION - LEFT L4/5 Indications: Juli is referred by Dr. Haynes for treatment of Bilateral Foraminal Stenosis L>R LE symptoms. Physician: Adelfo Sepulveda Total Fluoroscopy time (seconds): 20 Total sedation minutes: 19 Complications: none Procedure in detail & Post-procedure care: FINDINGS Foraminal Nerve Root Compression secondary to disc disease and facet hypertrophy DESCRIPTION OF PROCEDURE Following review of allergy and review of potential side effects and complicatio ns, including, but not necessarily limited to, infection, allergic reaction, local tissue breakdown, stroke, temporary or permanent nerve injury, paralysis, and possible , the patient indicated that the patient understood and agreed to proceed. An informed consent document was signed by the patient, witnessed by a nurse, and placed in the patient's chart. Additionally, other treatment options including medications, modalities, and physical therapy were reviewed with the patient. After review of previous anaesthesic history and IV conscious sedation the patient was deemed safe to proceed with today?s procedure with IV conscious sedation as ASA class II designation. Safety time-out was performed to confirm patient ID, procedure to be performed and site of procedure. IV sedation was a ccomplished with a combination of 2mg of Versed and 50mcg of Fentanyl administered by the RN after DO order, titrated to patient comfort during the course of the procedure while the patient remained responsive to all verbal commands In the prone position following sterile prep and drape of the lumbar region, the left L4/5 posterior neuroforamen was identified fluoroscopically. The skin was anesthetized via a 25-gauge 1.5-inch needle with 1% lidocaine solution. At this point, a 25-gauge 3.5-inch spinal needle was atraumatically introduced and advanced under fluoroscopic guidance through the posterior left L4/5 neuroforamen to approximately the anterior aspect of the canal. Depth was confirmed on lateral view. Following negative aspiration, injection of approximately 1.5 cc of Isovue 200 under live fluoroscopy in the AP view confirmed excellent flow along the nerve root, into the epidural space without vascular or intrathecal uptake observed Radiological data, including multiple fluoroscopic views of the lumbosacral spine, reveal a spinal needle at the left L4/5 posterior neuroforamen. Subsequent views show flow of contrast material flowing superiorly and inferiorly along the nerve root confirming epidural flow. Subsequently, a test dose of 1.5 cc of 1% lidocaine solution was administered and patient was observed for two minutes for signs or symptoms of complications, including abdominal pain, shortness of breath, bilateral upper or lower extremity weakness, nausea and vomiting, prior to steroid injection. At this point, a total of 2cc or 10mg of dexamethasone and 6mg of betamethasone was injected without incident. The procedure tolerated the procedure well without signs or symptoms of complications prior to transfer to the recovery area continued monitoring without incident. The patient was then transferred to the recovery area where they were observed for an appropriate time after the injection. The patient reported a VAS score of 9 prior to the procedure and a post- procedure VAS of 2. POST OP INSTRUCTIONS The patient was provided a Pain Log to continue to record their response to the target-specific procedure prior to follow-up visit with their referring physician. Additionally, specific post-injection care instructions and a contact number to our office were provided if concerns arise regarding possible co mplications associated with the procedure are suspected.
== END 2024-02-23 11:40 | disposition home or self-care (01) ==
PROVIDERS: PCP Family Medicine; Referring Provider Physical Medicine & Rehabilitation; Visit Provider Physical Medicine & Rehabilitation
DX: M51.17 Intervertebral disc disorders with radiculopathy, lumbosacral region (principal); M48.07 Spinal stenosis, lumbosacral region
CPT/HCPCS: 62323; 64483; 99152; J0702; J1100; J2250; J3010; J3490

== ENCOUNTER 2024-04-11 09:00 | Observation (INO) | payer MEDICARE, SELFPAY ==
[2023-01-27 11:58] VITALS: BMI 25.2
[2024-04-11] VITALS (15 sets, daily range): BP systolic 134–201; BP diastolic 54–90; PULSE 53–77; RESP 16–27; TEMP 36.2–36.6; O2SAT 91–100; BMI 24.3
--- NOTE | 2024-04-11 09:27 | DI.CT.S_ITS ---
PROCEDURE: CT HEAD/BRAIN WO CON INDICATIONS: Vision and balance issues for 1 week TECHNIQUE: Noncontrast 4.5 mm thick angled axial sections acquired from the foramen magnum to the vertex, with coronal and sagittal reformats. For radiation dose reduction, the following was used: automated exposure control, adjustment of mA and/or kV according to patient size. COMPARISON: None. FINDINGS: Image quality: Diagnostic. CSF spaces: Basal cisterns are patent. No extra-axial fluid collections. The ventricles are symmetric in size and shape. Brain: No intracranial bleeds or masses. There is cerebral volume loss for age, with resultant ventricular and sulcal prominence. There are periventricular and deep white matter chronic small vessel ischemic changes. There is a small low-density area which extends to the cortex in the left frontal parietal region which is consistent with a small cortical infarct of uncertain chronicity. There is an old left-sided lacunar infarct. There is intracranial internal carotid artery atherosclerosis. Skull and face: Calvarium and visualized facial bones appear intact, without suspicious lesions. Sinuses: Visualized sinuses and mastoids are clear. 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 Comment: Recommend brain MRI for further evaluation. Dictated by: Juan Pablo Franco M.D. on 04/11/2024 at 9:44 Approved by: Juan Pablo Franco M.D. on 04/11/2024 at 9:48
--- NOTE | 2024-04-11 10:25 | ED.NEUROSD ---
HPI - Neuro Symptoms/Deficit General Chief Complaint: Neuro Symptoms/Deficit Stated Complaint: vision symptoms and balance per pt Time Seen by Provider: 04/11/24 09:26 Source: patient Mode of arrival: Ambulatory History of Present Illness HPI Narrative: Patient is an 83-year-old female who stated that about 1 week ago she started noticing some vision problems. She thought that she was having some problems reading. It was somewhat difficult for her to describe. No headache. No pain in her eyes. She does wear corrective reading lenses. She also states that she has had some balance issues but this is not new. It was related to a radiculopathy and lumbar fracture. There was also some reports of some word-finding issues. She denies any coordination issues. She thinks that the vision issues have not changed over the past week but she has noticed more problems with speaking. No pain in her upper or lower extremities. No chest pain, shortness of breath. On Anticoagulants: No Related Data Home Medications Medication Instructions Recorded Confirmed albuterol sulfate 90 mcg/actuation 1 inh inhalation DAILY PRN 02/03/24 04/11/24 aerosol inhaler Shortness Of Breath lisinopril 20 mg tablet 20 mg PO DAILY 04/11/24 04/11/24 lorazepam 0.5 mg tablet 0.5 mg PO ONCE PM PRN anxiety 04/11/24 04/11/24 omeprazole 20 mg capsule,delayed 20 mg PO BID 04/11/24 04/11/24 release pregabalin 25 mg capsule 25 mg PO BID 04/11/24 04/11/24 tramadol 50 mg tablet 50 mg PO BID PRN pain 04/11/24 04/11/24 Previous Rx's Medication Instructions Recorded DISABLED PARKING PERMIT #1 ea 06/17/23 Allergies Allergy/AdvReac Type Severity Reaction Status Date / Time No Known Drug Allergies Allergy Verified 04/11/24 09:23 Review of Systems Review of Systems ROS Unobtainable: All systems reviewed & are unremarkable except as noted in HPI and below Hematologic/Lymphatic On Anticoagulants: No Patient History Medical History Spinal stenosis, lumbar region with neurogenic claudication Sacroiliac dysfunction Greater trochanteric bursitis of left hip Alopecia Osteoarthritis GERD (gastroesophageal reflux disease) Lumbar radiculopathy Scoliosis Facet arthropathy, lumbar Chronic low back pain Degenerative disc disease Kidney infection Surgical History Anesthesia History of hysterectomy S/P epidural steroid injection Family History Father Heart disease Mother Cancer Brother Parkinson's disease Osteomyelitis Sister Gout Social History household members: none Smoking Status: Former smoker alcohol intake: former Smoking Status: Former smoker alcohol intake frequency: holidays/special occasions only Alcohol type: wine Substance Use Type: does not use Exam Initial Vital Signs Initial Vital Signs: Vital Signs Temperature 97.8 F 04/11/24 09:16 Pulse Rate 73 04/11/24 09:16 Respiratory Rate 18 04/11/24 09:16 Blood Pressure 187/80 H 04/11/24 09:16 Pulse Oximetry 99 04/11/24 09:16 Oxygen Delivery Method Room Air 04/11/24 09:16 Const General: cooperative, comfortable and No ill appearing HENMT Head: normal to inspection and normocephalic Eyes Pupils: PERRL EOM: EOM intact bilaterally Resp Effort & Inspection: normal respiratory effort Auscultation: clear to auscultation bilaterally Cardio Rate: regular rate Rhythm: regular rhythm GI Inspection: normal to inspection and non-distended Skin General: no rashes or lesions noted Neuro General: patient alert, patient awake, patient oriented x3 and moves all extremities Cognition: normal cognition Speech: speech normal Motor: muscle tone normal throughout Sensory Exam: no sensory deficits noted Other: Right sided visual field deficits Extrem General: normal to inspection and capillary refill normal Scores GCS [place] coma scale eye opening: Spontaneous [place] coma scale verbal response: Orientated Sheree coma scale motor response: Obey commands [place] coma scale total score: 15 NIH Stroke Scale Level of Conciousness: Alert, keenly responsive Ask month/age: Answers both questions correctly. Open/close eyes, close hand: Performs both tasks correctly Best gaze horizontal: Normal Visual vieyra: Partial hemianopia Facial palsy: Normal symetrical movement Left arm drift: No drift for full 10 sec Right arm drift: No drift for full 10 sec Left leg drift: No drift for full 5 sec Right leg drift: No drift for full 5 sec Limb ataxia: Absent Sensory on face/arms/legs: Normal, no sensory loss Best language: No aphasia, normal Dysarthria: Normal Extinction or inattention: No abnormality Total NIH Stroke scale score: 1 Course Orders Ordered: ED Orders 04/11/24 09:27 CT head/brain wo con Stat 04/11/24 10:22 Complete Blood Count AUTO DIFF Stat Comprehensive Metabolic Panel Stat Lipase Stat Troponin & CK Cardiac Panel Stat Acetaminophen (Acetaminophen 325 Mg Tablet) 650 mg PO Q6H CORINNE Aspirin (Aspirin Ec 81 Mg Tablet) 81 mg PO DAILY CORINNE Calcium Carbonate (Calcium Carbonate 500 Mg Tab) 1,000 mg PO Q4HR PRN PRN Reason: Dyspepsia Celecoxib (Celecoxib 200 Mg Capsule) 200 mg PO DAILY CORINNE Enoxaparin Sodium (Enoxaparin 40 Mg/0.4 Ml Syringe) 40 mg SUBCUT DAILY CORINNE Lisinopril (Lisinopril 20 Mg Tablet) 20 mg PO DAILY CORINNE Lorazepam (Lorazepam 0.5 Mg Tablet) 0.5 mg PO BEDTIME PRN PRN Reason: anxiety Naloxone HCl (Naloxone 0.4 Mg/Ml Vial) 0.2 mg IV Q2MIN PRN PRN Reason: Opiate Reversal Pantoprazole Sodium (Pantoprazole Dr 20 Mg Tablet) 20 mg PO BID CORINNE Pregabalin (Pregabalin 25 Mg Capsule) 25 mg PO TID CORINNE Tramadol HCl (Tramadol 50 Mg Tablet) 50 mg PO BID PRN PRN Reason: pain Discontinued Medications Atorvastatin Calcium (Atorvastatin 20 Mg Tablet) 20 mg PO BEDTIME CORINNE Vital Signs Vital signs: Vital Signs - 8 hr 04/11/24 09:16 04/11/24 09:54 04/11/24 09:56 Temperature 97.8 F Pulse Rate 73 60 Respiratory Rate 18 27 H Blood Pressure 187/80 H 158/69 H Pulse Oximetry 99 99 Oxygen Delivery Method Room Air 04/11/24 09:56 04/11/24 10:00 04/11/24 10:03 Temperature Pulse Rate 63 63 59 L Respiratory Rate 21 27 H 26 H Blood Pressure Pulse Oximetry 98 98 100 Oxygen Delivery Method 04/11/24 10:03 04/11/24 10:15 04/11/24 10:15 Temperature Pulse Rate 56 L Respiratory Rate 21 Blood Pressure 175/77 H 171/74 H Pulse Oximetry 98 Oxygen Delivery Method 04/11/24 10:30 04/11/24 10:31 04/11/24 10:31 Temperature Pulse Rate 70 68 Respiratory Rate 27 H Blood Pressure 201/90 H Pulse Oximetry 100 96 Oxygen Delivery Method 04/11/24 11:00 04/11/24 11:01 04/11/24 11:01 Temperature Pulse Rate 56 L 53 L Respiratory Rate 27 H 27 H Blood Pressure 197/85 H Pulse Oximetry 97 98 Oxygen Delivery Method 04/11/24 11:16 04/11/24 11:16 Temperature Pulse Rate 77 Respiratory Rate 20 Blood Pressure 184/70 H Pulse Oximetry 99 Oxygen Delivery Method MDM - Neuro Symptoms/Deficit Lab Data Attestation: I reviewed the patient's lab results. 04/11/24 10:22 04/11/24 10:22 Labs: Lab Results 04/11/24 Range/Units 10:22 WBC 5.8 (4.5-11.0) X10^3/uL RBC 3.88 L (4.0-5.2) X10^6/uL Hgb 12.7 (12.0-16.0) g/dL Hct 37.8 (36-46) % MCV 97.5 (80-100) fL MCH 32.7 (26-34) PG MCHC 33.6 (30-36) % RDW 13.6 (11.6-14.8) % Plt Count 220 (150-400) X10^3/uL Neut % (Auto) 56.0 (50-75) % Lymph % (Auto) 31.4 (25-40) % [place] % (Auto) 10.2 (3-14) % Eos % (Auto) 1.2 L (2-4) % Baso % (Auto) 1.2 (0-2) % Neut # (Auto) 3200 (3023-2271) /uL Lymph # (Auto) 1800 (1975-7968) /uL [place] # (Auto) 600 (0-900) /uL Eos # (Auto) 100 (0-450) /uL Baso # (Auto) 100 (0-100) /uL Sodium 138 (137-145) mmol/L Potassium 4.3 (3.4-5.1) mmol/L Chloride 107 (98-107) mmol/L Carbon Dioxide 26 (22-32) mmol/L BUN 23 H (7-17) mg/dL Creatinine 1.02 (0.52-1.04) mg/dL Estimated GFR 54 L (>60) mL/min BUN/Creatinine Ratio 22.5 H (6-22) Glucose 89 (80-110) mg/dL Calcium 9.5 (8.4-10.2) mg/dL Total Bilirubin 0.5 (0.2-1.3) mg/dL AST 29 (14-36) IU/L ALT 20 (<35) IU/L Alkaline Phosphatase 49 (38-126) U/L Total Creatine Kinase 162 H (30-135) U/L Troponin I < 0.012 (0.01-0.034) ng/mL Total Protein 7.5 (6.3-8.2) g/dL Albumin 4.5 (3.5-5.0) g/dL Globulin 3.0 (1.7-4.1) g/dL Albumin/Globulin Ratio 1.5 (1.0-2.8) Lipase 154 (23-300) U/L Imaging Data CT scan - head: Radiologist's Impression: PROCEDURE: CT HEAD/BRAIN WO CON INDICATIONS: Vision and balance issues for 1 week TECHNIQUE: Noncontrast 4.5 mm thick angled axial sections acquired from the foramen magnum to the vertex, with coronal and sagittal reformats. For radiation dose reduction, the following was used: automated exposure control, adjustment of mA and/or kV according to patient size. COMPARISON: None. FINDINGS: Image quality: Diagnostic. CSF spaces: Basal cisterns are patent. No extra-axial fluid collections. The ventricles are symmetric in size and shape. Brain: No intracranial bleeds or masses. There is cerebral volume loss for age, with resultant ventricular and sulcal prominence. There are periventricular and deep white matter chronic small vessel ischemic changes. There is a small low-density area which extends to the cortex in the left frontal parietal region which is consistent with a small cortical infarct of uncertain chronicity. There is an old left-sided lacunar infarct. There is intracranial internal carotid artery atherosclerosis. Skull and face: Calvarium and visualized facial bones appear intact, without suspicious lesions. Sinuses: Visualized sinuses and mastoids are clear. 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 Comment: Recommend brain MRI for further evaluation ECG Data Attestation: I personally reviewed and interpreted this ECG as follows: Interpretation: Sinus bradycardia Ventricular rate of 56 Normal axis Normal QRS Normal QTC No ST T wave changes MDM Narrative Medical decision making narrative: Last known normal was approximately 1 week ago. She does have right-sided visual field deficits. NIH score of 1. CT scan does show age indeterminate frontal/parietal infarct however this would not specifically explain the symptoms she presents with today. Patient does require admission to the hospital for further evaluation and treatment. Discussed the case with Dr. Haynes he was her primary doctor who will admit. Discussed the findings of the CT scan of the need for admission with the patient. She expressed understanding and agreement as well. Discharge Plan Departure Patient Disposition: Admitted as Observation Clinical Impression: CVA (cerebral vascular accident) Admit Date/Time: 04/11/24 11:19 Admit Provider: Gena Haynes
[2024-04-11 10:33] LABS: Add Manual Diff / Slide Review NO; Basophils Absolute Auto 100 /uL (0-100); Basophils Percent Auto 1.2 % (0-2); Eosinophils Absolute Auto 100 /uL (0-450); Eosinophils Percent Auto 1.2 % (2-4); Hematocrit 37.8 % (36-46); Hemoglobin 12.7 g/dL (12.0-16.0); Lymphocytes Absolute Auto 1800 /uL (1100-4500); Lymphocytes Percent Auto 31.4 % (25-40); Mean Corpuscular HGB Conc 33.6 % (30-36); Mean Corpuscular Hemoglobin 32.7 PG (26-34); Mean Corpuscular Volume 97.5 fL (80-100); Monocytes Absolute Auto 600 /uL (0-900); Monocytes Percent Auto 10.2 % (3-14); Neutrophils Absolute Auto 3200 /uL (1500-7000); Platelet Count 220 X10^3/uL (150-400); Red Blood Cell Count 3.88 X10^6/uL (4.0-5.2); Red Cell Distribution Width 13.6 % (11.6-14.8); White Blood Cell Count 5.8 X10^3/uL (4.5-11.0)
[2024-04-11 10:43] LABS: Alanine Aminotransferase 20 IU/L (<35); Albumin 4.5 g/dL (3.5-5.0); Albumin Globulin Ratio 1.5 (1.0-2.8); Alkaline Phosphatase 49 U/L (38-126); Aspartate Aminotransferase 29 IU/L (14-36); BUN Creatinine Ratio 22.5 (6-22); Bilirubin Total 0.5 mg/dL (0.2-1.3); Blood Urea Nitrogen 23 mg/dL (7-17); Calcium 9.5 mg/dL (8.4-10.2); Carbon Dioxide 26 mmol/L (22-32); Chloride 107 mmol/L (98-107); Creatine Kinase 162 U/L (30-135); Estimated Glomerular Filt Rate 54 mL/min (>60); Glucose 89 mg/dL (80-110); HEMOLYSIS < 15 (0-50); Lipase 154 U/L (23-300); Potassium 4.3 mmol/L (3.4-5.1); Sodium 138 mmol/L (137-145); Total Protein 7.5 g/dL (6.3-8.2)
[2024-04-11 10:54] LABS: Troponin I < 0.012 ng/mL (0.01-0.034)
--- NOTE | 2024-04-11 11:46 | P.HP_ITS ---
History of Present Illness History of Present Illness Date Patient Seen: 04/11/24 Chief complaint: vision symptoms and balance per pt Narrative: Pt is a 83yo woman with HTN, GERD, chronic back pain who presented with vision changes and word finding. The pt reports that approximately 1 week ago she noticed while reading that the right side of the page was slightly blurry, and difficult to see. She feels it is a depth perception issue. She denies any issues with driving, or walking around her home our outside. She feels that it came on suddenly, and has not changed at all since first happening. She also reports that for the past 4-5 days she has to pause more frequently than usual to find the word she wants to say. She denies any slurring of words. She denies any weakness or change in sensation. She has chronic radiculopathy with numbness into her left leg from spinal stenosis. She denies any other focal neurological symptoms. She denies any recent chest pain, SOB. She states that she has otherwise been feeling well and in her normal state of health. FORMERLY [facility], [facility] Medical History Spinal stenosis, lumbar region with neurogenic claudication Sacroiliac dysfunction Greater trochanteric bursitis of left hip Alopecia Osteoarthritis GERD (gastroesophageal reflux disease) Lumbar radiculopathy Scoliosis Facet arthropathy, lumbar Chronic low back pain Degenerative disc disease Kidney infection Surgical History Anesthesia History of hysterectomy S/P epidural steroid injection Family History Father Heart disease Mother Cancer Brother Parkinson's disease Osteomyelitis Sister Gout Social History household members: none Smoking Status: Former smoker alcohol intake: former Meds Home Medications and Allergies Home Medications Medication Instructions Recorded Confirmed Type DISABLED PARKING PERMIT #1 ea 06/17/23 04/11/24 Rx albuterol sulfate 90 mcg/actuation 1 inh inhalation DAILY PRN 02/03/24 04/11/24 History aerosol inhaler Shortness Of Breath lisinopril 20 mg tablet 20 mg PO DAILY 04/11/24 04/11/24 History lorazepam 0.5 mg tablet 0.5 mg PO ONCE PM PRN anxiety 04/11/24 04/11/24 History omeprazole 20 mg capsule,delayed 20 mg PO BID 04/11/24 04/11/24 History release pregabalin 25 mg capsule 25 mg PO BID 04/11/24 04/11/24 History tramadol 50 mg tablet 50 mg PO BID PRN pain 04/11/24 04/11/24 History Allergies Allergy/AdvReac Type Severity Reaction Status Date / Time No Known Drug Allergies Allergy Verified 04/11/24 09:23 Exam Vital Signs (past 8 hours): - 04/11/24 09:16 04/11/24 09:54 04/11/24 09:56 Temperature 97.8 F Pulse Rate 73 60 Respiratory Rate 18 27 H Blood Pressure 187/80 H 158/69 H Pulse Oximetry 99 99 Oxygen Delivery Method Room Air 04/11/24 09:56 04/11/24 10:00 04/11/24 10:03 Temperature Pulse Rate 63 63 59 L Respiratory Rate 21 27 H 26 H Blood Pressure Pulse Oximetry 98 98 100 Oxygen Delivery Method 04/11/24 10:03 04/11/24 10:15 04/11/24 10:15 Temperature Pulse Rate 56 L Respiratory Rate 21 Blood Pressure 175/77 H 171/74 H Pulse Oximetry 98 Oxygen Delivery Method 04/11/24 10:30 04/11/24 10:31 04/11/24 10:31 Temperature Pulse Rate 70 68 Respiratory Rate 27 H Blood Pressure 201/90 H Pulse Oximetry 100 96 Oxygen Delivery Method Oxygen Delivery Method Room Air Narrative Exam Narrative: Gen: NAD, sitting comfortably in bed, pleasantly conversant but occasionally pausing for words HEENT: normocephalic, atraumatic Neck: no LAD, no JVD CV: RRR, no murmurs Resp: clear to auscultation bilaterally Abd: soft, nontender, nondistended Ext: no edema Neuro: CN II-XII intact, 5/5 strength UE and LE, normal sensation UE and LE, visual field testing with blurring right eye right lower quadrant Objective Labs 04/11/24 10:22 04/11/24 10:22 Labs: Laboratory Results - last 24 hr 04/11/24 10:22 WBC 5.8 RBC 3.88 L Hgb 12.7 Hct 37.8 MCV 97.5 MCH 32.7 MCHC 33.6 RDW 13.6 Plt Count 220 Neut % (Auto) 56.0 Lymph % (Auto) 31.4 [place] % (Auto) 10.2 Eos % (Auto) 1.2 L Baso % (Auto) 1.2 Neut # (Auto) 3200 Lymph # (Auto) 1800 [place] # (Auto) 600 Eos # (Auto) 100 Baso # (Auto) 100 Sodium 138 Potassium 4.3 Chloride 107 Carbon Dioxide 26 BUN 23 H Creatinine 1.02 Estimated GFR 54 L BUN/Creatinine Ratio 22.5 H Glucose 89 Calcium 9.5 Total Bilirubin 0.5 AST 29 ALT 20 Alkaline Phosphatase 49 Total Creatine Kinase 162 H Troponin I < 0.012 Total Protein 7.5 Albumin 4.5 Globulin 3.0 Albumin/Globulin Ratio 1.5 Lipase 154 Assessment & Plan Assessment & Plan narrative: Pt is a 83yo woman with HTN, GERD, chronic back pain who presented with vision changes and mild word finding. 1) CVA: CT head w/o contrast showed left frontal parietal infarct, unknown chronicity. Locations of lesion not fitting with symptoms. Question if old infarct. - MR/MRA head and neck ordered - Echo ordered - Continue telemetry - Pt declines statin therapy after discussion of risks vs benefits - Start 81mg daily aspirin - Speech therapy consulted - No need for OT/PT based on symptoms 2) HTN: BP highly variable in the ED - Continue home Lisinopril - Continue to monitor closely, discussed with pt may need to adjust 3) GERD: Stable - Continue home BID Omeprazole 4) Chronic back pain: Stable - Continue home Pregabalin, Tramadol FEN: Heart healthy diet DVT ppx: Lovenox Code: Full Dispo: Pending completion of above evaluation. Potentially stable for d/c tomorrow.
[2024-04-11 12:21] LABS: Appearance Urine UA CLEAR; Bilirubin Urine UA NEGATIVE (NEGATIVE); Color Urine UA YELLOW; Glucose Urine UA NEGATIVE (Negative); Ketones Urine UA NEGATIVE (NEGATIVE); Leukocyte Esterase Urine UA TRACE (NEGATIVE); Nitrite Urine UA NEGATIVE (Negative); Occult Blood Urine UA NEGATIVE (Negative); Protein Urine UA NEGATIVE (Negative); Urobilinogen Urine UA 0.2 E.U./dL (0.2)
[2024-04-11 12:22] LABS: Urine Volume Low Vol <10mL (spun)
[2024-04-11 12:23] LABS: Bacteria Urine None Seen; RBC Urine None Seen (0-5/HPF); WBC Urine 1-5/HPF (0-5/HPF)
[2024-04-11 12:24] LABS: Culture Indicated Urine Specimen Cultured; Squamous Epithelial Cell Urine 0-1 /HPF (0-5/HPF)
--- NOTE | 2024-04-11 12:26 | DI.MRI.S_ITS ---
PROCEDURE: MR STROKE Pre- and post-contrast brain MRI, non-contrast brain MR angiogram, pre- and postcontrast neck MR angiogram INDICATIONS: CVA TECHNIQUE: Brain: Noncontrast axial T1 spin echo, axial T2 fast spin echo, sagittal and axial FLAIR, coronal T2 fast spin echo, axial gradient echo, axial diffusion and ADC through the brain. After the administration of contrast, axial 3D VIBE of the cranial vasculature and brain. Brain MRA: Non-contrast 3-D time of flight MR angiogram, with multiple tdfjbmo-ktodudhlx-qrupcvrvxr (MIP) reformats performed. Neck MRA: Axial and sagittal TruFISP through the neck. Coronal dynamic MR angiogram during administration of contrast in the arterial and venous phases, with 3-dimenstional bvxpysj-brqikejba-ixdpuglclh (MIP) reformats constructed from subtraction images. COMPARISON: [facility], CT, CT HEAD/BRAIN WO CON, 04/11/2024, 9:38. FINDINGS: Image quality: Excellent. BRAIN: CSF spaces: Ventricles are normal in size and shape. Basal cisterns are patent. No extra-axial fluid collections. Brain: No intracranial bleeds or mass effects. [place]-white matter interface is normal. There is restricted water diffusion consistent with acute infarct involving the left parietal region extending to the cortex. Reference diffusion image 69 of series 26, where there is an area of water restriction measuring 1.9 x 4.0 cm. There is associated mild cytotoxic edema noted. Brainstem appears normal. Age-related volume loss and mild small vessel ischemic change. Normal intravascular flow voids are present. No abnormal intracranial enhancement. Skull and face: Calvarial marrow signal is normal. Orbits appear normal. Sinuses: Sinuses and mastoids are clear. BRAIN MR ANGIOGRAM: Anterior circulation: Intracranial internal carotid arteries are normal in size and enhancement. The flow within the paired anterior cerebral arteries is normal and symmetric. The flow within the middle cerebral arteries is normal and symmetric. The anterior communicating artery is seen. No stenoses, occlusions, or aneurysms. Posterior circulation: The visualized portions of the vertebral arteries demonstrate normal caliber, and join to form a normal appearing basilar artery. Suggestion of possible distal right posterior cerebral artery stenotic disease. No aneurysms. NECK MR ANGIOGRAM: Carotids: Great vessels demonstrate a conventional anatomy as they arise from the aortic arch. The origins of the common carotid arteries appear patent. The calibers and courses of both common carotid arteries are normal. The bifurcation regions appear normal bilaterally. The internal carotid arteries demonstrate normal course and caliber. Posterior circulation: The origins of the vertebral arteries appear patent. More superior portions of both vertebral arteries demonstrate normal course and caliber, and join to form a normal appearing basilar artery. Miscellaneous: Subclavian arteries appear patent. Pre-contrast images through the neck show no soft tissue abnormalities. IMPRESSION: BRAIN MRI: Acute relatively small cortical infarct involving the left parietal cortex. Mild, age-appropriate underlying small vessel ischemic change. BRAIN MR ANGIOGRAM: Suggestion of distal right posterior cerebral artery stenotic disease. Otherwise unremarkable MRA head. NECK MR ANGIOGRAM: Patent carotids. Dictated by: Juan Pablo Franco M.D. on 04/11/2024 at 15:58 Approved by: Juan Pablo Franco M.D. on 04/11/2024 at 16:06
--- NOTE | 2024-04-11 12:26 | DI.ECHO.S_ITS ---
[facility] : : [address] : [place] : : [id number] : : Phone: [phone] Echocardiogram Report + + :Name: ANGELA SWARTZ Study Date: 04/11/2024 Height: 68 in : :[facility] ReadingLocation: Weight: 160 lb : : Gender: Female BSA: 1.9 m2 : :: 1940 Age: 83 yrs BP: 134/54 mmHg: :Reason For Study: CVA : :Ordering Physician: NIRANJAN, : :LAITH Performed By: Andrew Mendoza : :Referring: LAITH UREÑA : + + Interpretation Summary The ejection fraction is estimated to be 50-55%. The right ventricular systolic function is normal. The IVC is of normal diameter and collapses greater than 50% with a sniff. This suggests a low right atrial pressure of 3 mm Hg. There is moderate aortic regurgitation. Procedure: A two-dimensional transthoracic echocardiogram with color flow and Doppler was performed. The study quality was technically adequate. Comparison is made with the echocardiogram of 04/17/2023. The patient was in sinus rhythm with heart rates between 51-67 bpm during the exam. Left Ventricle: The left ventricle is normal in size and wall thickness. The ejection fraction is estimated to be 50-55%. There are no obvious focal wall motion abnormalities noted but poor endocardial definition reduces the sensitivity for the detection of such. Diastolic parameters suggest probable normal left ventricular diastolic function and normal filling pressures. Right Ventricle: The right ventricle is normal size. The right ventricular systolic function is normal. Atria: The left atrial size is normal. The right atrium is normal in size. The interatrial septum grossly appears intact with no obvious evidence for an atrial septal defect. Mitral Valve: The mitral valve is normal in structure and function. There is no mitral valve stenosis. There is no mitral regurgitation noted. Aortic Valve: The aortic valve is trileaflet. There is no aortic valve stenosis. There is moderate aortic regurgitation. Tricuspid Valve: The tricuspid valve is not well visualized, but is grossly normal. There is no tricuspid stenosis. No tricuspid regurgitation. Pulmonic Valve: The pulmonic valve is not well visualized. There is no pulmonic valvular stenosis. There is trace pulmonic regurgitation. Great Vessels: The aortic root is borderline dilated. The ascending aorta is at the upper limits of normal in size. The IVC is of normal diameter and collapses greater than 50% with a sniff. This suggests a low right atrial pressure of 3 mm Hg. Pericardium/ Pleura There is no pericardial effusion. There is no pleural effusion. MMode/2D Measurements & Calculations LVIDd: 4.0 cm LVOT diam: 2.3 cm LVIDs: 2.8 cm Ao root diam: 3.8 cm FS: 30.9 % asc Aorta Diam: 3.7 cm IVSd: 1.1 cm LVPWd: 0.95 cm LV hitchcock. diameter/BSA (cm/m^2): 2.2 LV sys. diameter/BSA (cm/m^2): 1.5 LA A2 area: 11.0 cm2 RA long axis: 4.3 cm LA A4 area: 11.5 cm2 RA area: 13.7 cm2 LA length (vol): 4.4 cm RA vol: 37.0 ml LA vol: 24.0 ml RA : 19.9 ml/m2 LA vol index: 12.9 ml/m2 IVC diam: 1.2 cm RVD1 (basal): 3.1 cm RVD2 (mid): 2.8 cm TAPSE: 2.3 cm Doppler Measurements & Calculations Ao V2 max: 122.7 cm/sec LVOT Max Jefe: 90.8 cm/sec Ao V2 mean: 84.9 cm/sec LV V1 max P.3 mmHg Ao max P.1 mmHg LV V1 VTI: 23.2 cm Ao mean P.3 mmHg FRANCISCA(I,D): 3.7 cm2 Ao V2 VTI: 27.0 cm FRANCISCA(V,D): 3.1 cm2 sev ratio: 0.86 FRANCISCA indexed to BSA (cm^2/m^2): 2.0 AI P1/2t: 542.0 msec AI dec slope: 221.3 cm/sec2 MV E max jefe: 41.7 cm/sec SV(LVOT): 98.6 ml MV A max jefe: 77.9 cm/sec MV E/A: 0.54 Med Peak E' Jefe: 4.4 cm/sec E/E' med: 9.4 Lat Peak E' Jefe: 6.9 cm/sec E/E' lat: 6.1 E/e' average: 7.8 MV dec time: 0.19 sec Reading Physician:SIMA
--- NOTE | 2024-04-11 14:14 | SLP.IPNOTE ---
ST completed swallow/speech/language screen. Pt reports word finding issues are baseline and she was experiencing it before symptoms started occurring which resulted in this hospital admission. She reports she has a baseline cough that she has had for a long time, which she is seeing an ENT for, which she states may be d/t GERD/post nasal drip. ST screen swallow with Pt exhibiting no overt s/s of aspiration. ST recommends re-referral if increase in symptoms occur.
--- NOTE | 2024-04-11 16:46 | P.DS_ITS ---
History of Present Illness History of Present Illness Date Patient Seen: 04/11/24 Time Patient Seen: 16:46 Chief complaint: vision symptoms and balance per pt Narrative: Pt is a 83yo woman with HTN, GERD, chronic back pain who presented with vision changes and word finding. The pt reports that approximately 1 week ago she noticed while reading that the right side of the page was slightly blurry, and difficult to see. She feels it is a depth perception issue. She denies any issues with driving, or walking around her home our outside. She feels that it came on suddenly, and has not changed at all since first happening. She also reports that for the past 4-5 days she has to pause more frequently than usual to find the word she wants to say. She denies any slurring of words. She denies any weakness or change in sensation. She has chronic radiculopathy with numbness into her left leg from spinal stenosis. She denies any other focal neurological symptoms. She denies any recent chest pain, SOB. She states that she has otherwise been feeling well and in her normal state of health. Discharge Providers Provider Date of admission: 04/11/24 11:19 Discharge Date: 04/11/24 Primary care physician: Gena Haynes MD Consults: 04/11/24 12:26 Consult to Speech Therapy Evaluate & Treat Comment: Physician Instructions: Evaluate and treat Discharge provider: Gena Haynes MD Summary Hospital Course Discharge Diagnosis: CVA HTN GERD Chronic back pain Hospital Course: The pt presented with vision changes and word finding. CT in the ED showed a small parietal CVA. MRI confirmed this. MRA was overall reassuring. Echo was normal. She remained in sinus rhythm throughout her hospitalization. The pt was started on a baby aspirin. She declined a statin. The pt and this provider did not feel that PT/OT would be beneficial based on the pts symptoms of vision changes. She will f/u with Ophtho as an outpatient. Status at Discharge Cognitive/behavioral status at discharge: oriented Functional status at discharge: independent ambulation Exam Vital Signs (past 8 hours): - 04/11/24 09:16 04/11/24 09:54 04/11/24 09:56 Temperature 97.8 F Pulse Rate 73 60 Respiratory Rate 18 27 H Blood Pressure 187/80 H 158/69 H Pulse Oximetry 99 99 Oxygen Delivery Method Room Air Oxygen Flow Rate 04/11/24 09:56 04/11/24 10:00 04/11/24 10:03 Temperature Pulse Rate 63 63 59 L Respiratory Rate 21 27 H 26 H Blood Pressure Pulse Oximetry 98 98 100 Oxygen Delivery Method Oxygen Flow Rate 04/11/24 10:03 04/11/24 10:15 04/11/24 10:15 Temperature Pulse Rate 56 L Respiratory Rate 21 Blood Pressure 175/77 H 171/74 H Pulse Oximetry 98 Oxygen Delivery Method Oxygen Flow Rate 04/11/24 10:30 04/11/24 10:31 04/11/24 10:31 Temperature Pulse Rate 70 68 Respiratory Rate 27 H Blood Pressure 201/90 H Pulse Oximetry 100 96 Oxygen Delivery Method Oxygen Flow Rate 04/11/24 11:00 04/11/24 11:01 04/11/24 11:01 Temperature Pulse Rate 56 L 53 L Respiratory Rate 27 H 27 H Blood Pressure 197/85 H Pulse Oximetry 97 98 Oxygen Delivery Method Oxygen Flow Rate 04/11/24 11:16 04/11/24 11:16 04/11/24 11:30 Temperature Pulse Rate 77 60 Respiratory Rate 20 20 Blood Pressure 184/70 H Pulse Oximetry 99 98 Oxygen Delivery Method Oxygen Flow Rate 04/11/24 11:51 04/11/24 11:51 04/11/24 12:05 Temperature Pulse Rate 63 76 Respiratory Rate 20 22 Blood Pressure 183/77 H Pulse Oximetry 97 91 Oxygen Delivery Method Room Air Room Air Oxygen Flow Rate 04/11/24 12:27 Temperature 97.2 F L Pulse Rate 60 Respiratory Rate 16 Blood Pressure 134/54 L Pulse Oximetry 98 Oxygen Delivery Method Oxygen Flow Rate 0 Oxygen Delivery Method Room Air Oxygen Flow Rate 0 Narrative Exam Narrative: Gen: NAD, sitting comfortably in bed, pleasantly conversant but occasionally pausing for words HEENT: normocephalic, atraumatic Neck: no LAD, no JVD CV: RRR, no murmurs Resp: clear to auscultation bilaterally Abd: soft, nontender, nondistended Ext: no edema Neuro: CN II-XII intact, 5/5 strength UE and LE, normal sensation UE and LE, visual field testing with blurring right eye right lower quadrant Objective Labs 04/11/24 10:22 04/11/24 10:22 Labs: Laboratory Results - last 24 hr 04/11/24 04/11/24 10:22 12:09 WBC 5.8 RBC 3.88 L Hgb 12.7 Hct 37.8 MCV 97.5 MCH 32.7 MCHC 33.6 RDW 13.6 Plt Count 220 Neut % (Auto) 56.0 Lymph % (Auto) 31.4 [place] % (Auto) 10.2 Eos % (Auto) 1.2 L Baso % (Auto) 1.2 Neut # (Auto) 3200 Lymph # (Auto) 1800 [place] # (Auto) 600 Eos # (Auto) 100 Baso # (Auto) 100 Sodium 138 Potassium 4.3 Chloride 107 Carbon Dioxide 26 BUN 23 H Creatinine 1.02 Estimated GFR 54 L BUN/Creatinine Ratio 22.5 H Glucose 89 Calcium 9.5 Total Bilirubin 0.5 AST 29 ALT 20 Alkaline Phosphatase 49 Total Creatine Kinase 162 H Troponin I < 0.012 Total Protein 7.5 Albumin 4.5 Globulin 3.0 Albumin/Globulin Ratio 1.5 Lipase 154 Urine Color Yellow Urine Appearance Clear Urine pH 8.0 Ur Specific Lena 1.010 Urine Protein Negative Urine Glucose (UA) Negative Urine Ketones Negative Urine Occult Blood Negative Urine Nitrate Negative Urine Bilirubin Negative Urine Urobilinogen 0.2 Ur Leukocyte Esterase Trace H Urine RBC None seen Urine WBC 1-5/hpf Ur Squamous Epith Cells 0-1 /hpf Urine Bacteria None seen Ur Culture Indicated? Specimen cultured Vol Urine Centrifuged Low vol <10ml (spun) A [facility] Medical History Spinal stenosis, lumbar region with neurogenic claudication Sacroiliac dysfunction Greater trochanteric bursitis of left hip Alopecia Osteoarthritis GERD (gastroesophageal reflux disease) Lumbar radiculopathy Scoliosis Facet arthropathy, lumbar Chronic low back pain Degenerative disc disease Kidney infection Surgical History Anesthesia History of hysterectomy S/P epidural steroid injection Family History Father Heart disease Mother Cancer Brother Parkinson's disease Osteomyelitis Sister Gout Social History household members: none Smoking Status: Former smoker alcohol intake: former Discharge Plan Discharge Plan Patient Disposition: Home Provider Discharge Comment: A referral for a Zio patch is being placed for you today. They will contact you about coming in to have it placed. A referral to [facility] is being placed as well. If you haven't heard from them by the end of this week, please call [phone]. Discharge orders & Medications Prescriptions: New aspirin 81 mg Tablet,Delayed Release (Dr/Ec) 81 mg PO DAILY Qty: 90 0RF Continued (DME) DISABLED [place] See Rx Instructions .Route .MEDSUPPLY Qty: 1 0RF Rx Instructions: As directed lisinopril 20 mg tablet 20 mg PO DAILY lorazepam 0.5 mg tablet 0.5 mg PO ONCE PM PRN (Reason: anxiety) omeprazole 20 mg capsule,delayed release(DR/EC) 20 mg PO BID tramadol 50 mg tablet 50 mg PO BID PRN (Reason: pain) pregabalin 25 mg capsule 25 mg PO BID albuterol sulfate 90 mcg/actuation HFA aerosol inhaler 1 inh inhalation DAILY PRN (Reason: Shortness Of Breath) Follow up/Referrals: Gena Haynes MD [Primary Care Provider] - 2 Weeks Diet/Activity/Treatments Diet: Diet as Tolerated and Regular Visit Report/Discharge Packet Instructions: DI for Stroke-Ischemic Stand Alone Forms: Patient Portal/API, Stroke Signs & Symptoms Discharge Data Primary Care Provider: Gena Haynes Attending Provider: Gena Haynes Admit Date/Time: 04/11/24 11:19 Discharges patient from system. Discharge Date/Time: 04/11/24 17:50
--- NOTE | 2024-04-11 17:58 | PC.NURSE ---
Pt admitted to ACU from ED. Pt A&Ox4. Denies numbness/tingling/weakness. MD Haynes at bedside to assess. Brain MRI and echo done. MD Haynes discharged home this evening. PIV and tele d/c'ed prior to discharge. RN Deedee Clinton went over discharge instructions with patient, patient stated understanding, all questions answered. All belongings with patient. This RN escorted patient via wheelchair to main entrance where patient's nephew picked her up to take her home.
== END 2024-04-11 17:50 | disposition home or self-care (01) ==
LOC: ED 11:04 → AC 11:21
PROVIDERS: Admitting Provider Family Medicine; Emergency Provider Emergency Medicine; PCP Family Medicine; Referring Provider Emergency Medicine; Visit Provider Family Medicine
DX: H53.9 Unspecified visual disturbance (principal); R47.01 Aphasia; R29.701 NIHSS score 1; I10 Essential (primary) hypertension
CPT/HCPCS: 36415; 70450; 70544; 70549; 70553; 80053; 81001; 82550; 83690; 84484; 85025; 87086; 93005; 93010; 93306; 99284; G0378; A9579

== ENCOUNTER → 2024-04-14 09:32 | Outpatient (CLI) | payer MEDICARE, SELFPAY ==
[2024-04-11 11:45] VITALS: BMI 24.3
[2024-04-14 10:17] LABS: COVID-19 CEPHEID 4-PLEX PCR Negative (Negative); Influenza A - CEPHEID Flu A NEGATIVE (NEGATIVE); Influenza B - CEPHEID Flu B NEGATIVE (NEGATIVE); Respiratory Syncytial Virus Negative (Negative)
== END ==
PROVIDERS: PCP Family Medicine; Visit Provider Physician Assistant
DX: J02.9 Acute pharyngitis, unspecified (principal); R50.9 Fever, unspecified
CPT/HCPCS: 0241U; 87070

== ENCOUNTER → 2024-04-18 09:33 | Outpatient (CLI) | payer MEDICARE, SELFPAY ==
[2024-04-11 11:45] VITALS: BMI 24.3
== END ==
LOC: CAR 09:35
PROVIDERS: PCP Family Medicine; Referring Provider Family Medicine; Visit Provider Family Medicine
DX: I63.9 Cerebral infarction, unspecified (principal)
CPT/HCPCS: 93246

== ENCOUNTER → 2024-08-19 10:40 | Outpatient (CLI) | payer MEDICARE, SELFPAY ==
[2024-04-11 11:45] VITALS: BMI 24.3
[2024-08-19 12:24] LABS: Add Manual Diff / Slide Review NO; Basophils Absolute Auto 100 /uL (0-100); Basophils Percent Auto 0.9 % (0-2); Eosinophils Absolute Auto 100 /uL (0-450); Eosinophils Percent Auto 1.8 % (2-4); Hematocrit 37.5 % (36-46); Hemoglobin 12.4 g/dL (12.0-16.0); Lymphocytes Absolute Auto 2600 /uL (1100-4500); Mean Corpuscular HGB Conc 33.2 % (30-36); Mean Corpuscular Hemoglobin 32.2 PG (26-34); Mean Corpuscular Volume 96.9 fL (80-100); Monocytes Absolute Auto 700 /uL (0-900); Monocytes Percent Auto 10.5 % (3-14); Neutrophils Absolute Auto 2900 /uL (1500-7000); Neutrophils Percent Auto 45.8 % (50-75); Platelet Count 214 X10^3/uL (150-400); Red Blood Cell Count 3.87 X10^6/uL (4.0-5.2); Red Cell Distribution Width 13.8 % (11.6-14.8); White Blood Cell Count 6.3 X10^3/uL (4.5-11.0)
[2024-08-19 12:40] LABS: Alanine Aminotransferase 17 IU/L (<35); Albumin 4.2 g/dL (3.5-5.0); Albumin Globulin Ratio 1.4 (1.0-2.8); Alkaline Phosphatase 54 U/L (38-126); Aspartate Aminotransferase 23 IU/L (14-36); BUN Creatinine Ratio 35.4 (6-22); Bilirubin Total 0.5 mg/dL (0.2-1.3); Blood Urea Nitrogen 45 mg/dL (7-17); Calcium 9.4 mg/dL (8.4-10.2); Carbon Dioxide 22 mmol/L (22-32); Chloride 105 mmol/L (98-107); Estimated Glomerular Filt Rate 42 mL/min (>60); Glucose 74 mg/dL (80-110); HEMOLYSIS < 15 (0-50); Potassium 4.2 mmol/L (3.4-5.1); Sodium 135 mmol/L (137-145); Total Protein 7.2 g/dL (6.3-8.2)
== END ==
PROVIDERS: PCP Family Medicine; Referring Provider Family Medicine; Visit Provider Family Medicine
DX: I10 Essential (primary) hypertension (principal)
CPT/HCPCS: 36415; 80053; 85025

== ENCOUNTER → 2024-08-30 13:11 | Outpatient (CLI) | payer MEDICARE, SELFPAY ==
[2024-04-11 11:45] VITALS: BMI 24.3
[2024-08-30 14:20] LABS: BUN Creatinine Ratio 30.8 (6-22); Blood Urea Nitrogen 36 mg/dL (7-17); Calcium 9.8 mg/dL (8.4-10.2); Carbon Dioxide 26 mmol/L (22-32); Chloride 104 mmol/L (98-107); Estimated Glomerular Filt Rate 46 mL/min (>60); Glucose 119 mg/dL (80-110); HEMOLYSIS 17 (0-50); Sodium 135 mmol/L (137-145)
[2024-08-30 14:21] LABS: Potassium 5.5 mmol/L (3.4-5.1)
== END ==
LOC: LAB 13:12
PROVIDERS: PCP Family Medicine; Referring Provider Family Medicine; Visit Provider Family Medicine
DX: R79.89 Other specified abnormal findings of blood chemistry (principal)
CPT/HCPCS: 36415; 80048

== ENCOUNTER → 2024-09-09 14:25 | Outpatient (CLI) | payer MEDICARE, SELFPAY ==
[2024-04-11 11:45] VITALS: BMI 24.3
[2024-09-09 17:01] LABS: BUN Creatinine Ratio 32.1 (6-22); Blood Urea Nitrogen 36 mg/dL (7-17); Calcium 9.4 mg/dL (8.4-10.2); Carbon Dioxide 23 mmol/L (22-32); Chloride 104 mmol/L (98-107); Estimated Glomerular Filt Rate 48 mL/min (>60); Glucose 103 mg/dL (80-110); HEMOLYSIS < 15 (0-50); Potassium 4.2 mmol/L (3.4-5.1); Sodium 135 mmol/L (137-145)
== END ==
PROVIDERS: PCP Family Medicine; Referring Provider Family Medicine; Visit Provider Family Medicine
DX: E87.5 Hyperkalemia (principal)
CPT/HCPCS: 80048

== ENCOUNTER 2024-12-03 10:32 | Emergency (ER) | payer MEDICARE, SELFPAY ==
[2024-04-11 11:45] VITALS: BMI 24.3
[2024-12-03] VITALS (8 sets, daily range): BP systolic 140–159; BP diastolic 65–94; PULSE 76–97; RESP 18–26; TEMP 36.9; O2SAT 91–98; BMI 25.0
--- NOTE | 2024-12-03 11:07 | ED_ITS ---
HPI - Back Pain/Injury General Chief Complaint: Back Pain/Injury Stated Complaint: Low back px Time Seen by Provider: 12/03/24 11:05 Source: patient and EMS Mode of arrival: EMS History of Present Illness HPI Narrative: Patient was an 83-year-old female. Within the past month patient had a laminectomy lumbar spine. Has been doing well. About 3 days ago started to do some physical therapy to include some crunches. That is when she started to have pain in her left hip and down left back. She reports no specific incident today however after she got up from the toilet she had a difficult time getting back into bed. She did receive fentanyl by EMS prior to arrival. No fevers. No urinary symptoms. Related Data Home Medications Medication Instructions Recorded Confirmed albuterol sulfate 90 mcg/actuation 1 inh inhalation DAILY PRN 02/03/24 08/19/24 aerosol inhaler Shortness Of Breath omeprazole 20 mg capsule,delayed 20 mg PO BID 04/11/24 08/19/24 release pregabalin 25 mg capsule 25 mg PO BID 04/11/24 08/19/24 Previous Rx's Medication Instructions Recorded fluticasone propionate 50 1 spray intranasal DAILY #16 grams 04/14/24 mcg/actuation nasal spray,suspension (Flonase Allergy Relief) benzonatate 200 mg capsule 200 mg PO BID PRN cough #30 caps 04/20/24 lisinopril 20 mg tablet 20 mg PO DAILY #90 tabs 06/07/24 DISABLED [place]ING [place] #1 ea 06/08/24 tramadol 50 mg tablet 50 mg PO BID PRN pain #60 tabs 08/12/24 lorazepam 0.5 mg tablet 0.5 mg PO ONCE PM PRN anxiety #30 11/04/24 tabs hydrocodone 5 mg-acetaminophen 325 1 tab PO Q4-6H PRN pain #14 tabs 12/03/24 mg tablet Allergies Allergy/AdvReac Type Severity Reaction Status Date / Time No Known Drug Allergies Allergy Verified 08/19/24 10:06 Review of Systems Review of Systems Narrative: See HPI Patient History Medical History Spinal stenosis, lumbar region with neurogenic claudication Sacroiliac dysfunction Greater trochanteric bursitis of left hip Alopecia Osteoarthritis GERD (gastroesophageal reflux disease) Lumbar radiculopathy Scoliosis Facet arthropathy, lumbar Chronic low back pain Degenerative disc disease Kidney infection Surgical History Anesthesia History of hysterectomy S/P epidural steroid injection Family History Father Heart disease Mother Cancer Brother Parkinson's disease Osteomyelitis Sister Gout Social History household members: none Smoking Status: Former smoker alcohol intake: former Smoking Status: Former smoker alcohol intake frequency: holidays/special occasions only Alcohol type: wine Exam Initial Vital Signs Initial Vital Signs: Vital Signs Pulse Rate 76 12/03/24 10:47 Const General: cooperative, comfortable and No ill appearing HENMT Head: normal to inspection and normocephalic Resp Effort & Inspection: normal respiratory effort Cardio Rate: regular rate Back/Spine/Pelvis Thoracic/Lumbar Spine: paraspinal tenderness and No lumbar spinal tenderness Neuro General: patient alert and patient awake Extrem General: capillary refill normal Course Orders Ordered: ED Orders 12/03/24 11:07 XR lumbar spine 2-3V Stat Discontinued Medications Hydrocodone Bitart/Acetaminophen (Hydrocodone/Acet 5/325 Tablet) 1 tab PO NOW ONE Stop: 12/03/24 11:08 Last Admin: 12/03/24 11:44 Dose: 1 tab Documented By: EDSON Vital Signs Vital signs: Vital Signs - 8 hr 12/03/24 10:47 12/03/24 10:51 12/03/24 10:51 Temperature Pulse Rate 76 97 H Respiratory Rate 24 Blood Pressure 140/65 Pulse Oximetry 94 Oxygen Delivery Method 12/03/24 10:57 12/03/24 11:00 12/03/24 11:00 Temperature 98.5 F Pulse Rate 80 96 H Respiratory Rate 18 26 H Blood Pressure 140/65 143/67 H Pulse Oximetry 98 95 Oxygen Delivery Method Room Air 12/03/24 11:42 Temperature Pulse Rate 91 H Respiratory Rate 25 H Blood Pressure Pulse Oximetry 91 Oxygen Delivery Method MDM - Back Pain/Injury Imaging Data Lumbar spine x-ray: Radiologist's Impression: 1PROCEDURE: XR LUMBAR SPINE 2-3V INDICATIONS: LBP TECHNIQUE: 3 views of the lumbar spine were acquired. COMPARISON: [facility], , XR LUMBAR SPINE MIN 4V, 02/04/2023, 13:00. [facility], CR, XR LUMBAR SPINE MIN 4V, 06/24/2021, 13:32. [facility], CR, XR LUMBAR SPINE 2 OR 3 VIEWS, 11/10/2024, 13:08. FINDINGS: Bones: Similar appearance and position of the L5-S1 fusion hardware with interbody spacer. There are moderate degenerative changes seen elsewhere. Vertebral body heights appear well maintained. No traumatic subluxation. Slight leftward spinal curvature. Soft tissues: Increased fecal loading. IMPRESSION: Moderate degenerative changes and slight leftward spinal curvature. Similar appearance of the L5-S1 fusion hardware interbody spacer. If there is high concern for further derangement, consider MRI evaluation. MDM Narrative Medical decision making narrative: X-ray shows no acute pathology. I suspect that this is discomfort after starting her home physical therapy regimen. Plan will be to discharge home with symptom control. No urinary symptoms. No indication for admission to the hospital. Patient expressed understanding and agreement with plan. Discharge Plan Departure Patient Disposition: Home Clinical Impression: Low back pain Instructions: DI for Low Back Pain Activity Restrictions/Additional Instructions: Follow all of the postoperative instructions given to you by the orthopedic surgeon. Keep all of your scheduled follow-up appointments. Return to the emergency department for new symptoms. Prescriptions: New hydrocodone-acetaminophen 5-325 mg tablet 1 tab PO Q4-6H PRN (Reason: pain) Qty: 14 0RF No Action fluticasone propionate [Flonase Allergy Relief] 50 mcg/actuation spray,suspension 1 spray intranasal DAILY Qty: 16 0RF Rx Instructions: administer into each nostril benzonatate 200 mg capsule 200 mg PO BID PRN (Reason: cough) Qty: 30 0RF lisinopril 20 mg tablet 20 mg PO DAILY Qty: 90 3RF (DME) DISABLED [place] See Rx Instructions .Route .MEDSUPPLY Qty: 1 0RF Rx Instructions: As directed tramadol 50 mg tablet 50 mg PO BID PRN (Reason: pain) Qty: 60 0RF lorazepam 0.5 mg tablet 0.5 mg PO ONCE PM PRN (Reason: anxiety) Qty: 30 0RF omeprazole 20 mg capsule,delayed release(DR/EC) 20 mg PO BID pregabalin 25 mg capsule 25 mg PO BID albuterol sulfate 90 mcg/actuation HFA aerosol inhaler 1 inh inhalation DAILY PRN (Reason: Shortness Of Breath) Referrals: Gena Haynes MD [Primary Care Provider] - Stand Alone Forms: Patient Portal/API/Survey
--- NOTE | 2024-12-03 11:07 | DI.RAD.S_ITS ---
1PROCEDURE: XR LUMBAR SPINE 2-3V INDICATIONS: LBP TECHNIQUE: 3 views of the lumbar spine were acquired. COMPARISON: [facility], CR, XR LUMBAR SPINE MIN 4V, 02/04/2023, 13:00. [facility], CR, XR LUMBAR SPINE MIN 4V, 06/24/2021, 13:32. [facility], CR, XR LUMBAR SPINE 2 OR 3 VIEWS, 11/10/2024, 13:08. FINDINGS: Bones: Similar appearance and position of the L5-S1 fusion hardware with interbody spacer. There are moderate degenerative changes seen elsewhere. Vertebral body heights appear well maintained. No traumatic subluxation. Slight leftward spinal curvature. Soft tissues: Increased fecal loading. IMPRESSION: Moderate degenerative changes and slight leftward spinal curvature. Similar appearance of the L5-S1 fusion hardware interbody spacer. If there is high concern for further derangement, consider MRI evaluation. Dictated by: Deshawn Osorio M.D. on 12/03/2024 at 10:59 Approved by: Deshawn Osorio M.D. on 12/03/2024 at 11:00
[2024-12-03] MEDS: HYDROCODONE/ACET 5/325 TABLET 1 TAB PO (11:44)
== END 2024-12-03 12:24 | disposition home or self-care (01) ==
PROVIDERS: Emergency Provider Emergency Medicine; PCP Family Medicine
DX: M54.50 Low back pain, unspecified (principal)
CPT/HCPCS: 72100; 99283

== ENCOUNTER → 2025-01-13 09:55 | Outpatient (CLI) | payer MEDICARE, SELFPAY ==
[2024-04-11 11:45] VITALS: BMI 24.3
[2025-01-13 12:04] LABS: Add Manual Diff / Slide Review NO; Basophils Absolute Auto 0 /uL (0-100); Basophils Percent Auto 0.7 % (0-2); Eosinophils Absolute Auto 300 /uL (0-450); Eosinophils Percent Auto 5.2 % (2-4); Hematocrit 32.8 % (36-46); Hemoglobin 10.7 g/dL (12.0-16.0); Lymphocytes Absolute Auto 1800 /uL (1100-4500); Lymphocytes Percent Auto 27.5 % (25-40); Mean Corpuscular HGB Conc 32.7 % (30-36); Mean Corpuscular Hemoglobin 30.8 PG (26-34); Monocytes Absolute Auto 700 /uL (0-900); Monocytes Percent Auto 10.5 % (3-14); Neutrophils Absolute Auto 3700 /uL (1500-7000); Neutrophils Percent Auto 56.1 % (50-75); Platelet Count 235 X10^3/uL (150-400); Red Blood Cell Count 3.49 X10^6/uL (4.0-5.2); Red Cell Distribution Width 14.6 % (11.6-14.8); White Blood Cell Count 6.5 X10^3/uL (4.5-11.0)
[2025-01-13 12:37] LABS: Alanine Aminotransferase 18 IU/L (<35); Albumin 3.9 g/dL (3.5-5.0); Albumin Globulin Ratio 1.1 (1.0-2.8); Alkaline Phosphatase 70 U/L (38-126); Aspartate Aminotransferase 30 IU/L (14-36); BUN Creatinine Ratio 21.2 (6-22); Bilirubin Total 0.5 mg/dL (0.2-1.3); Blood Urea Nitrogen 29 mg/dL (7-17); Calcium 9.5 mg/dL (8.4-10.2); Carbon Dioxide 22 mmol/L (22-32); Chloride 107 mmol/L (98-107); Estimated Glomerular Filt Rate 38 mL/min (>60); Globulin 3.4 g/dL (1.7-4.1); Glucose 96 mg/dL (80-110); HEMOLYSIS < 15 (0-50); Potassium 4.9 mmol/L (3.4-5.1); Sodium 138 mmol/L (137-145); Total Protein 7.3 g/dL (6.3-8.2)
== END ==
LOC: LAB 09:56
PROVIDERS: PCP Family Medicine; Referring Provider Internal Medicine Infectious Disease; Visit Provider Internal Medicine Infectious Disease
DX: T84.7XXD Infection and inflammatory reaction due to other internal orthopedic prosthetic devices, implants and grafts, subsequent encounter (principal); A49.01 Methicillin susceptible Staphylococcus aureus infection, unspecified site
CPT/HCPCS: 36415; 80053; 85025

== ENCOUNTER → 2025-03-30 12:16 | Outpatient (CLI) | payer MEDICARE, SELFPAY ==
[2024-04-11 11:45] VITALS: BMI 24.3
[2025-03-30 13:05] LABS: Add Manual Diff / Slide Review NO; Basophils Absolute Auto 100 /uL (0-100); Basophils Percent Auto 0.8 % (0-2); Eosinophils Absolute Auto 100 /uL (0-450); Eosinophils Percent Auto 1.8 % (2-4); Hematocrit 33.9 % (36-46); Hemoglobin 11.3 g/dL (12.0-16.0); Lymphocytes Absolute Auto 1600 /uL (1100-4500); Lymphocytes Percent Auto 24.4 % (25-40); Mean Corpuscular HGB Conc 33.5 % (30-36); Mean Corpuscular Hemoglobin 31.3 PG (26-34); Mean Corpuscular Volume 93.4 fL (80-100); Monocytes Absolute Auto 700 /uL (0-900); Monocytes Percent Auto 10.5 % (3-14); Neutrophils Absolute Auto 4100 /uL (1500-7000); Neutrophils Percent Auto 62.5 % (50-75); Platelet Count 225 X10^3/uL (150-400); Red Blood Cell Count 3.63 X10^6/uL (4.0-5.2); White Blood Cell Count 6.5 X10^3/uL (4.5-11.0)
[2025-03-30 13:40] LABS: Alanine Aminotransferase 31 IU/L (<35); Albumin 4.4 g/dL (3.5-5.0); Albumin Globulin Ratio 1.6 (1.0-2.8); Alkaline Phosphatase 59 U/L (38-126); Aspartate Aminotransferase 33 IU/L (14-36); BUN Creatinine Ratio 33.1 (6-22); Bilirubin Total 0.6 mg/dL (0.2-1.3); Blood Urea Nitrogen 43 mg/dL (7-17); Calcium 9.7 mg/dL (8.4-10.2); Carbon Dioxide 25 mmol/L (22-32); Chloride 106 mmol/L (98-107); Estimated Glomerular Filt Rate 40 mL/min (>60); Globulin 2.8 g/dL (1.7-4.1); Glucose 87 mg/dL (70-99); HEMOLYSIS < 15 (0-50); Potassium 4.5 mmol/L (3.4-5.1); Sodium 139 mmol/L (137-145); Total Protein 7.2 g/dL (6.3-8.2)
== END ==
LOC: LAB 12:19
PROVIDERS: PCP Family Medicine; Referring Provider Internal Medicine Infectious Disease; Visit Provider Internal Medicine Infectious Disease
DX: T84.7XXD Infection and inflammatory reaction due to other internal orthopedic prosthetic devices, implants and grafts, subsequent encounter (principal); A49.01 Methicillin susceptible Staphylococcus aureus infection, unspecified site
CPT/HCPCS: 36415; 80053; 85025

== ENCOUNTER → 2025-08-15 11:49 | Outpatient (CLI) | payer MEDICARE, SELFPAY ==
[2025-06-19 10:39] VITALS: BMI 24.3
== END ==
PROVIDERS: PCP Family Medicine; Visit Provider Family Medicine
DX: N89.8 Other specified noninflammatory disorders of vagina (principal)
CPT/HCPCS: 87210